=== PATIENT | male | born 1950 | race Caucasian/White ===

== ENCOUNTER 2020-08-10 15:47 | Inpatient (IN) | payer MEDICARE, SELFPAY ==
[2020-08-10] VITALS (18 sets, daily range): BP systolic 74–132; BP diastolic 51–78; PULSE 63–94; RESP 19–30; TEMP 36.7–37.1; O2SAT 88–97; BMI 27.7
--- NOTE | ~2020-08-10 | XR_ITS ---
EXAMINATION: XR chest 1V portable INDICATION: Respiratory failure, assess ET tube placement TECHNIQUE: Portable AP chest at 0 to 33 hours COMPARISON: 08/23/2020 FINDINGS: The endotracheal tube ends approximately 6.7 cm above the car. The nasogastric tube is f ollowed as far as the stomach. Its tip is beyond the inferior margin of the radiograph. A right upper extremity PICC ends with its tip in the proximal superior vena cava. Diffuse interstitial and airspa ce opacities persist with slight worsening in the left lung base. A small left pleural effusion is qu estioned. There is no pneumothorax. The cardiomediastinal silhouette is stable. IMPRESSION: 1. Diffuse lung disease with slight interval worsening in the left lung base, consistent with pneumon ia and/or pulmonary edema and/or acute respiratory distress syndrome (ARDS). 2. Possible small left pleural effusion. Reviewed, dictated and finalized at location A. STRIAL ENGINEERING MANAGER IMPRESSION: 1. Diffuse lung disease with slight interval worsening in the left lung base, c onsistent with pneumonia and/or pulmonary edema and/or acute respiratory distre ss syndrome (ARDS). 2. Possible small left pleural effusion.
--- NOTE | ~2020-08-10 | XR_ITS ---
EXAMINATION: XR chest 1V portable EXAM DATE: 08/22/2020 05:58 INDICATION: Respiratory failure. TECHNIQUE: Portable AP frontal chest x-ray was obtained. Comparison is made to prior examination from 08/21, 08/20. FINDINGS: Endotracheal tube tip is 3-4 centimeters above the car. There is a nasogastric tube see n with tip collimated off the study, but below the left hemidiaphragm. There is a right-sided PICC li ne, tip at the mid SVC level. Extensive diffuse bilateral airspace disease consistent with COVID pneumonia. There are no sizable p leural effusions. There is no pneumothorax suspected. Cardiomediastinal silhouette is normal. Ri ght acromioclavicular surgical changes. There is no significant interval change compared to prior exam. IMPRESSION: 1. Line and tube(s) in position. 2. Extensive diffuse COVID pneumonia unchanged. L SUPPORT SPECIALIST Reviewed, dictated and finalized at location A.
--- NOTE | ~2020-08-10 | XR_ITS ---
EXAMINATION: XR chest 1V portable EXAM DATE: 08/21/2020 05:55 INDICATION: Respiratory failure TECHNIQUE: Portable AP frontal chest x-ray was obtained. Comparison is made to prior examination from 08/19, 08/20. FINDINGS: Endotracheal tube tip is 5-6 centimeters above the car. There is a nasogastric tube see n with tip collimated off the study, but below the left hemidiaphragm. There is a right-sided PICC li ne, tip at the mid SVC level. Extensive diffuse bilateral airspace disease consistent with COVID pneumonia. There are no sizable p leural effusions. There is no pneumothorax suspected. The cardiomediastinal silhouette is promine nt but magnified on this AP technique. Right acromioclavicular surgical changes. There is no significant interval change compared to prior exam. IMPRESSION: 1. Line and tube(s) in position. 2. Extensive diffuse COVID pneumonia unchanged. Reviewed, dictated and finalized at location A. BUYER
--- NOTE | ~2020-08-10 | US_ITS ---
EXAMINATION: US renal BI DATE: 08/22/2020 11:21 INDICATION: Acute kidney injury. TECHNIQUE: Multiple ultrasound grayscale images of the kidneys were obtained. COMPARISON: None. FINDINGS: The right kidney measures 11.7 x 5.2 x 5.1 cm. The left kidney measures 8.6 x 4.0 x 4.8 cm. The kidne ys demonstrate normal parenchymal echogenicity. There is a 3.1 cm cyst in right kidney. There is no h ydronephrosis. The bladder is decompressed by a Adkins catheter. IMPRESSION: 1. Mild atrophy of left kidney. No hydronephrosis. Reviewed, dictated and finalized at location B. CY AND PLANNING MANAGER
--- NOTE | ~2020-08-10 | XR_ITS ---
EXAMINATION: XR chest ET placement EXAM DATE: 08/20/2020 01:55 INDICATION: COVID pneumonia. ET TUBE PLACEMENT. TECHNIQUE: Portable AP frontal chest x-ray was obtained. Comparison is made to prior examination from 08/19/2020. FINDINGS: Endotracheal tube tip is 5-6 centimeters above the car. There is a nasogastric tube see n with tip collimated off the study, but below the left hemidiaphragm. There is a right-sided PICC li ne, tip at the mid SVC level. Extensive diffuse bilateral airspace disease consistent with COVID pneumonia. There are no sizable p leural effusions. There is no pneumothorax suspected. The cardiomediastinal silhouette is promine nt but magnified on this AP technique. Right acromioclavicular surgical changes. There is no significant interval change compared to prior exam. IMPRESSION: 1. Line and tube(s) in position. 2. Extensive diffuse COVID pneumonia unchanged. Reviewed, dictated and finalized at location A. STERED NURSE FETAL
--- NOTE | ~2020-08-10 | XR_ITS ---
XR chest PICC line 08/17/2020 11:17 Indication: PICC line insertion Procedure: AP portable chest Comparison: Comparison to multiple prior studies sequentially, with oldest reviewed study dated 08/10. Findings: Heart size normal. Patchy bilateral airspace consolidation, consistent with pneumonia. Krishan a less favored. PICC line tip in the SVC. No pneumothorax. No significant effusion. Impression: 1: Stable extensive bilateral airspace disease, most likely pneumonia. Reviewed, dictated and finalized at location A. PUNCHER Impression: 1: Stable extensive bilateral airspace disease, most likely pneumonia.
--- NOTE | ~2020-08-10 | XR_ITS ---
EXAMINATION: XR chest 1V portable DATE: 08/10/2020 16:35 INDICATION: Shortness of breath. Fever. TECHNIQUE: A single frontal view of the chest was obtained. COMPARISON: None. FINDINGS: There are patchy airspace opacities throughout the lungs bilaterally. No pleural effusion o r pneumothorax. Cardiomegaly is noted. IMPRESSION: 1. Diffuse lung disease, consistent with pneumonia or less likely pulmonary edema. 2. Cardiomegaly. Reviewed, dictated and finalized at location A. T HEATER IMPRESSION: 1. Diffuse lung disease, consistent with pneumonia or less likely pulmonary jena ma. 2. Cardiomegaly.
--- NOTE | ~2020-08-10 | XR_ITS ---
EXAMINATION: XR chest 1V portable DATE: 08/19/2020 10:40 INDICATION: Hypoxia. TECHNIQUE: frontal view of the chest was obtained. COMPARISON: Chest radiograph dated 08/17/2020 and 08/15/2020 FINDINGS: Slight interval improvement in extensive bilateral patchy airspace opacities throughout both lungs re latively sparing the apices. No pleural effusion or pneumothorax. Cardiomegaly. Right upper extremity peripherally inserted central venous catheter (PICC) tip at the superior vena cava. IMPRESSION: 1. Slight improvement in extensive bilateral patchy lung disease most likely pneumonia with different ial including less likely pulmonary edema. Reviewed, dictated and finalized at location A. RING SHED WORKER IMPRESSION: 1. Slight improvement in extensive bilateral patchy lung disease most likely pn eumonia with differential including less likely pulmonary edema.
--- NOTE | ~2020-08-10 | XR_ITS ---
EXAMINATION: XR chest 1V portable INDICATION: Respiratory failure TECHNIQUE: Portable AP chest at 0518 hours COMPARISON: 08/22/2020 FINDINGS: The endotracheal tube ends approximately 6.5 cm above the car. The nasogastric tube is f ollowed as far as the stomach. Its tip is beyond the inferior margin of the radiograph. A right upper extremity PICC ends with its tip in the proximal superior vena cava. Patchy bilateral airspace opaci ties persist with interval worsening in the lung bases and left midlung zone. IMPRESSION: 1. Diffuse lung disease with interval worsening, consistent with pneumonia and/or pulmonary edema and /or acute respiratory distress syndrome (ARDS). 2. Endotracheal tube partially withdrawn and now 6.5 cm above the car. Reviewed, dictated and finalized at location A. ING AID FITTER IMPRESSION: 1. Diffuse lung disease with interval worsening, consistent with pneumonia and/ or pulmonary edema and/or acute respiratory distress syndrome (ARDS). 2. Endotracheal tube partially withdrawn and now 6.5 cm above the car.
--- NOTE | ~2020-08-10 | XR_ITS ---
EXAMINATION: XR chest 1V portable INDICATION: Worsening hypoxia TECHNIQUE: Portable AP chest at 1045 hours COMPARISON: 08/10/2020 FINDINGS: Patchy airspace opacities persist in all lung zones with slight interval worsening. There i s stable cardiomegaly. No pleural effusion or pneumothorax is identified. There appear to be changes of right distal clavicle resection. IMPRESSION: 1. Diffuse lung disease with interval worsening, consistent with pneumonia and/or pulmonary edema and /or acute respiratory distress syndrome (ARDS). Reviewed, dictated and finalized at location A. GER SYSTEMS IMPRESSION: 1. Diffuse lung disease with interval worsening, consistent with pneumonia and/ or pulmonary edema and/or acute respiratory distress syndrome (ARDS).
--- NOTE | ~2020-08-10 | XR_ITS ---
EXAMINATION: XR abdomen NG/feed tube insert EXAM DATE: 08/20/2020 01:55 INDICATION: og tube placement TECHNIQUE: Frontal projection(s) of the abdomen for interpretation. There is no prior study for asael bah. FINDINGS: Feeding tube tip and side-port project over left upper quadrant, adequate. Nonspecific upp er abdominal bowel gas pattern. There is extensive bilateral abnormal reticulation. There are bony de generative changes. IMPRESSION: Feeding tube in position. Reviewed, dictated and finalized at location A. T AGENT IMPRESSION: Feeding tube in position.
--- NOTE | ~2020-08-10 | CT_ITS ---
EXAMINATION: CTA chest PE protocol DATE: 08/10/2020 17:40 INDICATION: Shortness of breath. TECHNIQUE: Computed tomography angiography (CTA) of the chest was performed with 100 mL Omnipaque-350 intravenous contrast timed to evaluate the pulmonary arteries. Coronal maximum intensity projection 3D-reconstructions were created by the technologist. Automated exposure control and iterative reconst ruction technique were employed. The dose-length product was 561.91 mGy-cm. COMPARISON: Chest single view 08/10/2020 FINDINGS: There are patchy groundglass and airspace opacities with some areas of septal thickening an d architectural distortion in all lobes. There is mild bronchiectasis in the inferior lungs. No pleur al effusion. Cardiomegaly is noted. There are coronary artery calcifications. No pericardial effusion . There is no pulmonary embolus. There is a small sliding hiatal hernia. There is moderate thoracic s pondylosis. IMPRESSION: 1. No pulmonary embolus. 2. Diffuse lung disease, consistent with pneumonia (especially COVID-19 pneumonia) or less likely pul monary edema. 3. Cardiomegaly. Reviewed, dictated and finalized at location A. ECT COACH IMPRESSION: 1. No pulmonary embolus. 2. Diffuse lung disease, consistent with pneumonia (especially COVID-19 pneumon ia) or less likely pulmonary edema. 3. Cardiomegaly.
--- NOTE | 2020-08-10 16:00 | ECG_ITS ---
Measurements Intervals [place] Rate: 82 P: GA: 0 QRS: 33 QRSD: 99 T: 18 QT: 366 QTc: 428 Interpretive Statements ATRIAL FIBRILLATION VENTRICULAR PREMATURE COMPLEX ST-T WAVE ABNORMALITY IN ANTERIOR LEADS- CONSIDER ISCHEMIA BASELINE ARTIFACT- I, II, III, AVR, AVL, AVF, V3 ABNORMAL ECG Electronically Signed On 08-11-2020 9:04:13 BOTTOM CAGER by Dave Camarena D.O.
--- NOTE | 2020-08-10 16:07 | ED.GENADULT ---
HPI - General Adult General Chief complaint: Weakness Stated complaint: I want a COVID test Time Seen by Provider: 08/10/20 15:53 Source: patient History of Present Illness HPI narrative: Patient is a 69 y/o male complaining of mild weakness for 1 week. He states that exertion makes his weakness and resting helps. He also has been having fever up to 103, cough, body ache and sore throat. He has had contact with IMMANUEL recently including his son and people at congregation. Related Data Home Medications Medication Instructions Recorded Confirmed alpha lipoic acid 300 mg capsule 300 mg PO DAILY 07/18/19 08/10/20 amlodipine 10 mg tablet 10 mg PO DAILY 07/18/19 08/10/20 aspirin 81 mg tablet,delayed 81 mg PO DAILY 07/18/19 08/10/20 release atenolol 50 mg tablet 50 mg PO DAILY 07/18/19 08/10/20 atorvastatin 80 mg tablet 80 mg PO DAILY 07/18/19 08/10/20 bisoprolol 2.5 1 tablet PO DAILY 07/18/19 08/10/20 mg-hydrochlorothiazide 6.25 mg tablet diclofenac 75 mg-misoprostol 200 1 tablet PO BID 07/18/19 08/10/20 mcg tablet,immediate,delayed release isosorbide mononitrate 30 mg 30 mg PO DAILY 07/18/19 08/10/20 tablet,extended release 24 hr lutein 20 mg capsule 20 mg PO DAILY 07/18/19 08/10/20 minoxidil 2.5 mg tablet 2.5 mg PO DAILY 07/18/19 08/10/20 multivitamin 1 tablet PO DAILY 07/18/19 08/10/20 omega-3 acid ethyl esters 1 gram 1 cap PO BID 07/18/19 08/10/20 capsule pen needle, diabetic 31 gauge x #30 each 07/18/19 08/10/20 1/4 prasugrel 10 mg tablet 10 mg PO DAILY 07/18/19 08/10/20 pregabalin 100 mg capsule 100 mg PO BID 07/18/19 08/10/20 quinapril 40 mg tablet 40 mg PO DAILY 07/18/19 08/10/20 ranolazine 500 mg tablet,extended 500 mg PO Q12H 07/18/19 08/10/20 release,12 hr cholecalciferol (vitamin D3) 50 50 mcg PO DAILY 11/19/19 08/10/20 mcg (2,000 unit) capsule cyanocobalamin (vitamin B-12) 5,000 mcg PO DAILY 11/19/19 08/10/20 5,000 mcg capsule Allergies Allergy/AdvReac Type Severity Reaction Status Date / Time clopidogrel Allergy Mild Rash Verified 08/10/20 22:16 Review of Systems Constitutional: Constitutional: Denies chills, Reports fever(s), Denies headache(s) and Reports weakness Eyes: Eyes: Denies blurry vision ENT: Denies headache(s), Denies neck pain and Reports sore throat Cardiovascular: Cardiovascular: Denies chest pain and Denies dyspnea Respiratory: Respiratory: Denies cough and Denies dyspnea Gastrointestinal: Gastrointestinal: Denies abdominal pain, Denies diarrhea, Denies nausea and Denies vomiting Genitourinary: Genitourinary: Denies hematuria and Denies dysuria Musculoskeletal: Musculoskeletal: Denies back pain, Reports myalgias and Denies neck pain Neurologic: Denies headache(s) and Denies weakness [facility] Past Medical History Medical History (Updated 08/11/20 @ 07:18 by Veronique Contreras MD) B12 deficiency Coronary artery disease Diabetes mellitus Hemoglobin A1c October 2019 6.4 Essential hypertension Hyperlipidemia Neuropathy Osteoarthritis Vitamin D deficiency Surgical History Surgical History (Updated 08/11/20 @ 06:54 by Verito Martin DO) History of coronary artery stent placement 2 cardiac in placed in 1999, for cardiac stents placed approximately 2008 History of shoulder surgery Status post bilateral foot surgery Family History Family History Mother Depression Hypertension Diabetes mellitus Coronary artery disease Obesity Osteoarthritis Father Cerebrovascular accident Other Cancer Social History Social History (Updated 08/11/20 @ 04:30 by Verito Martin DO) Social History: Primary care provider: Jenna Fox QUILL CLEANER Code status: Full code (no advance directives in place) Surrogate decision maker: Aria () Smoking status: Never smoker Second hand tobacco smoke exposure: No Alcohol intake: never Substance use: never Additional living arrangements
[2020-08-10 16:15] LABS: Basophils Percent Auto 0.3 % (0.2-1.2); Hematocrit 39.5 % (42.0-52.0); Hemoglobin 14.3 g/dL (14.0-18.0); Immature Granulocyte Absolute 0.07 K/mm3 (0.00-0.031); Immature Granulocyte Percent A 0.8 % (0-0.5); Lymphocytes Absolute Auto 0.53 K/mm3 (0.9-3.2); Lymphocytes Percent Auto 5.8 % (18.3-44.2); Mean Corpuscular HGB Conc 36.2 g/dl (32-36); Mean Corpuscular Hemoglobin 30.5 pg (26-34); Mean Corpuscular Volume 84.2 fl (80-100); Mean Platelet Volume 9.5 fl (7.4-10.4); Monocytes Percent Auto 10.5 % (2.6-8.5); Neutrophils Absolute Auto 7.5 K/mm3 (1.3-6.7); Neutrophils Percent Auto 82.6 % (45.5-73.1); Platelet Count Result 365 k/mm3 (150-375); Red Blood Count 4.69 M/mm3 (4.6-6.20); Red Cell Distribution Width 13.1 % (11.5-14.5); White Blood Count 9.1 K/mm3 (4.5-10.0)
[2020-08-10 16:29] LABS: Ovalocytes 1+ (NORMAL); Platelet Estimate Adequate (Adequate)
--- NOTE | 2020-08-10 16:33 | PC.NURSE ---
patient here with Covid like symptoms. see initial notes. has not been swabbed yet. is also here as a patient with similar symptoms. alert. oriented. RA sat on arrival 88%. assessments documented. SL inserted. labs have been sent. blood cultures sent. waiting for further orders from the provider.
[2020-08-10 16:36] LABS: Alanine Aminotransferase 29 U/L (4-50); Alkaline Phosphatase 86 U/L (38-126); Anion Gap 11 mmol/L (8-16); Aspartate Amino Transferase 39 U/L (17-59); Bilirubin,Total 0.8 mg/dL (0.2-1.3); Blood Urea Nitrogen 13 mg/dL (9-20); Carbon Dioxide 23 mmol/L (22-30); Chloride 102 mmol/L (98-107); Estimated CRCL calculation 57 ml/min; Estimated Glomerular Filt Rate 60; Glucose 184 mg/dL (75-110); Sodium 136 mmol/L (137-145)
[2020-08-10 16:45] LABS: Lactic Acid Reflex 2.7 mmol/L (0.7-2.1)
[2020-08-10 16:48] LABS: INR 1.2
[2020-08-10 16:49] LABS: Partial Thromboplastin Time 42.4 SECONDS (22.3-36.8)
[2020-08-10] MEDS: POTASSIUM CHLORIDE 20 MEQ TABLET 40 MEQ PO (16:51)
[2020-08-10 16:52] LABS: D Dimer 1.29 ug/mL (<0.48)
[2020-08-10 17:04] LABS: CRP 19.2 mg/dL (<1.0)
[2020-08-10 17:18] LABS: Troponin I 0.031 ng/mL (0.000-0.034)
--- NOTE | 2020-08-10 18:05 | PC.NURSE ---
patient medicated as ordered. resting on stretcher. current treatment plan reviewed with patient. aware of probable admission. has been on 2L NC O2 during ED stay. denies needs. call light in reach.
[2020-08-10 18:30] LABS: NT Pro B Type Natriuretic Pept 4680 PG/ML (5-100)
--- NOTE | 2020-08-10 18:39 | PC.NURSE ---
admission orders placed. waiting for bed assignment upstairs
[2020-08-10 19:30] LABS: Reflex Lactic Acid Yes or No Add Lactic
--- NOTE | 2020-08-10 19:53 | PC.NURSE ---
report given to Silvano STEWART on 3rd floor. will transfer patient to 301 with O2 and cardiac nurse. patient updated.
[2020-08-10 19:55] LABS: Lactic Acid 1.3 mmol/L (0.7-2.1)
[2020-08-10 20:07] LABS: Troponin I 0.021 ng/mL (0.000-0.034)
[2020-08-10] MEDS: DEXAMETHASONE SOD PHOS INJ 4 MG/ML VIAL 6 MG IV PUSH (20:52)
[2020-08-10 23:20] LABS: Troponin I 0.014 ng/mL (0.000-0.034)
[2020-08-11] VITALS (8 sets, daily range): BP systolic 114–146; BP diastolic 63–75; PULSE 65–87; RESP 18–20; TEMP 36.6–37.1; O2SAT 90–100
[2020-08-11 01:10] LABS: Add Urine Microscopic? YES; Appearance Urine Clear (Clear); Bilirubin Urine Negative (Negative); Blood Urine Negative (Negative); Color Urine Yellow (Yellow); Glucose Urine UA 1+ mg/dL (Negative); Ketones Urine Trace mg/dL (Negative); Leukocyte Esterase Ur Negative LEU/UL (Negative); Nitrate Urine Negative (Negative); Protein Urine 1+ mg/dL (Negative); RBC Urine 0-2 /hpf (0-2); Specific Grav Ur 1.025 (1.001-1.035); Urobilinogen Urine Negative mg/dL (<2.0); WBC Urine 0-3 /hpf
--- NOTE | 2020-08-11 04:11 | PM.IMHP ---
H&P: HPI History of Present Illness Date/Time: 08/11/20 04:11 Chief Complaint: I want COVID tested Narrative: Luis Garvey Jr. is a 69 year old male with a past medical history of hypertension, diabetes mellitus, to the ER with 7 days of cough congestion and fever. He was concerned that he may have COVID 19 and came in to be tested. The patient reports that last Tuesday went to his primary care provider's office because he was having sore throat and a dry cough. He requested a prescription for azithromycin which was provided. The next day he began having fevers ranging between 101 up to 103. He had a worsening cough, body aches, decreased appetite, and generalized weakness. He tried to call his primary care office on Tuesday to request a COVID test but the office did not return his call. He waited until and tried to call office again but called at 3:30 a.m. which was after hours. His primary care provider's office is closed on Tuesday. He was trying to make it until Tuesday before he came in but he was having such shortness of breath in felt so miserable that he came into the ER on Tuesday evening. When he arrived to the ER his oxygen saturations were 88% on room air. He reports that a couple of people at his [facility] were diagnosed with COVID the week prior to the onset of his symptoms. His son was also recently diagnosed with COVID but this occurred after the patient began having his own symptoms. He has not had any direct contact with his son in the last couple of weeks. Review of Systems Review of Systems: Narrative: 12 systems were reviewed with pertinent positives and negatives per HPI. Except as documented in the HPI, all other systems were reviewed and are negative. [facility] Past Medical History Medical History (Updated 08/11/20 @ 04:35 by Verito Martin DO) B12 deficiency Coronary artery disease Diabetes mellitus Hemoglobin A1c October 2019 6.4 Essential hypertension Hyperlipidemia Neuropathy Osteoarthritis Vitamin D deficiency Surgical History Surgical History (Updated 08/11/20 @ 06:54 by Verito Martin DO) History of coronary artery stent placement 2 cardiac in placed in 1999, for cardiac stents placed approximately 2008 History of shoulder surgery Status post bilateral foot surgery Family History Family History Mother Depression Hypertension Diabetes mellitus Coronary artery disease Obesity Osteoarthritis Father Cerebrovascular accident Other Cancer Social History Social History (Updated 08/11/20 @ 04:30 by Verito Martin DO) Social History: Primary care provider: Jenna Fox NP Code status: Full code (no advance directives in place) Surrogate decision maker: Aria () Smoking status: Never smoker Second hand tobacco smoke exposure: No Alcohol intake: never Substance use: never Additional living arrangements comments: lives with his 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 Gender identity (if verbalized by the patient): Male Spiritual care concerns: No Meds Home Medications and Allergies Home Medications Medication Instructions Recorded Confirmed Type alpha lipoic acid 300 mg capsule 300 mg PO DAILY 07/18/19 08/10/20 History amlodipine 10 mg tablet 10 mg PO DAILY 07/18/19 08/10/20 History aspirin 81 mg tablet,delayed 81 mg PO DAILY 07/18/19 08/10/20 History release atenolol 50 mg tablet 50 mg PO DAILY 07/18/19 08/10/20 History atorvastatin 80 mg tablet 80 mg PO DAILY 07/18/19 08/10/20 History bisoprolol 2.5 1 tablet PO DAILY 07/18/19 08/10/20 History mg-hydrochlorothiazide 6.25 mg tablet diclofenac 75 mg-misoprostol 200 1 tablet PO BID 07/18/19 08/10/20 History mcg tablet,immediate,delayed release isosorbide mononitrate 30 mg 30 mg PO DAILY 07/18/19 08/10/20 History tablet,extended release 24 hr lutein 20 mg cap
[2020-08-11 06:06] LABS: Hematocrit 34.2 % (42.0-52.0); Hemoglobin 12.2 g/dL (14.0-18.0); Mean Corpuscular HGB Conc 35.7 g/dl (32-36); Mean Corpuscular Hemoglobin 30.3 pg (26-34); Mean Corpuscular Volume 84.9 fl (80-100); Mean Platelet Volume 9.6 fl (7.4-10.4); Platelet Count Result 292 k/mm3 (150-375); Red Blood Count 4.03 M/mm3 (4.6-6.20); Red Cell Distribution Width 13.1 % (11.5-14.5); White Blood Count 4.6 K/mm3 (4.5-10.0)
[2020-08-11 06:19] LABS: D Dimer 1.45 ug/mL (<0.48)
[2020-08-11 06:30] LABS: Anion Gap 6 mmol/L (8-16); Blood Urea Nitrogen 14 mg/dL (9-20); Calcium 8.2 mg/dL (8.4-10.2); Carbon Dioxide 25 mmol/L (22-30); Chloride 105 mmol/L (98-107); Estimated CRCL calculation 83 ml/min; Estimated Glomerular Filt Rate > 60; Glucose 257 mg/dL (75-110); Magnesium 1.6 mg/dL (1.6-2.3); Potassium 3.8 mmol/L (3.4-5.0); Sodium 136 mmol/L (137-145)
[2020-08-11 07:09] LABS: CRP 17.4 mg/dL (<1.0)
[2020-08-11] MEDS: INSULIN ASPART (*BKC) 100 UNITS/ML SUB-Q ×2 (08:49→17:31)
[2020-08-11] MEDS: INSULIN GLARGINE (*BKC) 100 UNITS/ML 28 UNITS SUB-Q (08:50)
[2020-08-11] MEDS: CHOLECALCIFEROL 1,000 UNITS TABLET 2000 UNITS PO (08:50)
[2020-08-11] MEDS: ATORVASTATIN 40 MG TABLET 80 MG PO (08:50)
[2020-08-11] MEDS: CYANOCOBALAMIN 1,000 MCG TABLET 5000 MCG PO (08:51)
[2020-08-11] MEDS: lisinopriL 20 MG TABLET 40 MG PO (08:51)
[2020-08-11] MEDS: amLODIPine BESYLATE 5 MG TABLET 10 MG PO (08:51)
[2020-08-11 08:52] LABS: Glucose Point of Care 252 (65-105)
[2020-08-11] MEDS: DEXAMETHASONE SOD PHOS INJ 4 MG/ML VIAL 6 MG IV PUSH (08:52)
[2020-08-11] MEDS: OMEGA 3 POLYUNSAT FATTY ACIDS 1 GM CAP PO ×2 (08:52→17:33)
[2020-08-11] MEDS: metFORMIN HCL XR 500 MG TAB.SR.24H 1000 MG PO ×2 (08:53→17:33)
[2020-08-11] MEDS: ASPIRIN 81 MG ENTERIC TABLET PO (08:53)
[2020-08-11] MEDS: PRASUGREL HCL 10 MG TABLET PO (08:54)
[2020-08-11] MEDS: ISOSORBIDE MONONITRATE 30 MG TAB.ER.24H PO (08:54)
[2020-08-11] MEDS: MULTIVITAMINS THERAPEUTIC TAB (*BKC) 1 TABLET PO (08:54)
[2020-08-11] MEDS: minoxidiL 2.5 MG TABLET PO (08:55)
[2020-08-11] MEDS: ENOXAPARIN 40 MG/0.4 ML SYRINGE SUB-Q ×2 (08:55→20:34)
[2020-08-11] MEDS: hydroCHLOROthiazide 6.25 MG TABLET PO (08:55)
[2020-08-11] MEDS: bisoproloL fumarate 2.5 MG TABLET PO (08:56)
[2020-08-11] MEDS: GLIMEPIRIDE 2 MG TABLET PO ×2 (08:56→17:32)
[2020-08-11] MEDS: atenoloL 50 MG TABLET PO (08:56)
[2020-08-11] MEDS: RANOLAZINE 500 MG TAB.ER.12H PO ×2 (08:57→20:35)
[2020-08-11] MEDS: PREGABALIN (*CRX) 50 MG CAPSULE 100 MG PO ×2 (08:58→17:36)
[2020-08-11 10:21] LABS: Lactate Dehydrogenase 746 U/L (313-618)
[2020-08-11 12:33] LABS: Glucose Point of Care 180 (65-105)
--- NOTE | 2020-08-11 13:03 | PM.IMPN ---
Progress Note: A&P Assessment and Plan (1) Hypoxia: Code(s): R09.02 - Hypoxemia Status: Acute Assessment and Plan: Hypoxic upon presentation at 88% on room air. Currently requiring 3 L O2 per nasal cannula. Suspect this is secondary to COVID-19 viral infection. Continue supplemental O2 with goal saturation 90% or above. Wean to goal. (2) Suspected COVID-19 virus infection: Code(s): Z20.822 - Contact with and (suspected) exposure to COVID-19 Status: Acute Assessment and Plan: Patient reports known COVID positive contacts. CXR and CTA both showed diffuse lung disease consistent with COVID-19 pneumonia. Requiring 3 L O2 per nasal cannula. He is afebrile. Continue isolation precautions COVID-19 test is pending. Continue IV dexamethasone, started on 08/10/2020 in light of acute hypoxia. Will hold off on Remdesivir while awaiting confirmation of COVID status. This can be initiated if patient is positive. Supportive Care to include bronchodilators, expectorants, and antipyretics as needed Trend acute phase reactant (3) Hypokalemia: Code(s): E87.6 - Hypokalemia Status: Acute Assessment and Plan: Potassium low on presentation and was replaced. Potassium stable today at 3.8. 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 His home regimen consists of glimepiride, sitagliptin, and lantus. Sugars are likely elevated secondary to IV steroids. Accuchecks, SSI, and hypoglycemic protocol Continue lantus and glimperide Check A1c (5) Coronary artery disease: Code(s): I25.10 - Atherosclerotic heart disease of [place] coronary artery without angina pectoris Status: Inactive Assessment and Plan: Has a history of coronary stents. Denies active chest pain. Continue imdur, aspirin, prasugrel, and ranexa Subjective Date/time seen: 08/11/20 13:03 Interval history: Date of service: 08/11/2020 Luis Garvey is a 69-year-old male with a history of CAD, DM, HTN, and HLD who is seen in follow-up for congestion and fevers. Reports he was at [facility] and multiple members have been diagnosed with COVID. At this time, he is doing okay. He feels very short of breath and endorsing dyspnea on exertion. He has dry cough with no sputum production. He endorses chest congestion. He is having sweats but denies chills or fevers. He reports decreased appetite. He also endorses anosmia and dysgeusia, but states this is not a new finding for him. Also endorses headache and body aches. He feels a bit weak. He denies abdominal pain, nausea, or vomiting. Denies dizziness or lightheadedness. He has been having diarrhea, reporting 3-4 episodes per day of brown liquidy stool. Has not had any episodes of loose stool today. He denies any urinary symptoms. He feels fatigued. He has no additional concerns at this time. Review of Systems Review of Systems: All systems reviewed & are unremarkable except as noted in HPI and below Exam Narrative: Exam Narrative: Mr. Garvey is a well-nourished, well-appearing 69-year-old male who is lying supine in bed. He appears comfortable and is in NARD. HR 87, BP 143/75, R 18, T 98.7?, 91% on 3 L Neuro: awake, alert and oriented x4, speech clear, no focal neuro deficits noted HEENMT: normocephalic, atraumatic, EOMI, sclerae anicteric, moist oral mucosa, tongue midline, nares patent Neck: supple, no lymphadenopathy Respiratory: Diminished breath sounds bilaterally without crackles, wheeze
[2020-08-11 17:26] LABS: Glucose Point of Care 244 (65-105)
[2020-08-11 19:06] LABS: SARS-CoV-2 RNA PCR Positive
[2020-08-11] MEDS: guaiFENesin 12 HR 600 MG TABCR PO (20:35)
[2020-08-12] VITALS (17 sets, daily range): BP systolic 104–145; BP diastolic 57–80; PULSE 61–97; RESP 16–22; TEMP 35.9–38.2; O2SAT 88–95
[2020-08-12 03:46] LABS: Glucose Point of Care 235 (65-105)
[2020-08-12 06:34] LABS: Basophils Percent Auto 0.1 % (0.2-1.2); Hematocrit 34.7 % (42.0-52.0); Hemoglobin 12.2 g/dL (14.0-18.0); Immature Granulocyte Absolute 0.08 K/mm3 (0.00-0.031); Immature Granulocyte Percent A 0.8 % (0-0.5); Lymphocytes Absolute Auto 0.45 K/mm3 (0.9-3.2); Lymphocytes Percent Auto 4.6 % (18.3-44.2); Mean Corpuscular HGB Conc 35.2 g/dl (32-36); Mean Corpuscular Hemoglobin 30.7 pg (26-34); Mean Corpuscular Volume 87.4 fl (80-100); Mean Platelet Volume 9.9 fl (7.4-10.4); Monocytes Absolute Auto 0.4 K/mm3 (0.1-0.6); Neutrophils Absolute Auto 8.8 K/mm3 (1.3-6.7); Neutrophils Percent Auto 90.5 % (45.5-73.1); Platelet Count Result 348 k/mm3 (150-375); Red Blood Count 3.97 M/mm3 (4.6-6.20); Red Cell Distribution Width 13.2 % (11.5-14.5); White Blood Count 9.8 K/mm3 (4.5-10.0)
[2020-08-12 07:00] LABS: Alanine Aminotransferase 31 U/L (4-50); Albumin Level 3.1 g/dL (3.5-5.1); Alkaline Phosphatase 69 U/L (38-126); Anion Gap 7 mmol/L (8-16); Aspartate Amino Transferase 41 U/L (17-59); Bilirubin,Total 0.5 mg/dL (0.2-1.3); Blood Urea Nitrogen 28 mg/dL (9-20); CRP 6.5 mg/dL (<1.0); Calcium 8.2 mg/dL (8.4-10.2); Carbon Dioxide 24 mmol/L (22-30); Chloride 106 mmol/L (98-107); Estimated CRCL calculation 67 ml/min; Estimated Glomerular Filt Rate > 60; Glucose 176 mg/dL (75-110); Potassium 3.6 mmol/L (3.4-5.0); Sodium 137 mmol/L (137-145)
[2020-08-12 07:14] LABS: Ovalocytes 1+ (NORMAL); Platelet Estimate Adequate (Adequate)
[2020-08-12 07:19] LABS: Lactate Dehydrogenase 825 U/L (313-618)
[2020-08-12 08:29] LABS: Glucose Point of Care 171 (65-105)
[2020-08-12] MEDS: amLODIPine BESYLATE 5 MG TABLET 10 MG PO (08:53)
[2020-08-12] MEDS: ATORVASTATIN 40 MG TABLET 80 MG PO (08:54)
[2020-08-12] MEDS: ASPIRIN 81 MG ENTERIC TABLET PO (08:54)
[2020-08-12] MEDS: atenoloL 50 MG TABLET PO (08:54)
[2020-08-12] MEDS: bisoproloL fumarate 2.5 MG TABLET PO (08:55)
[2020-08-12] MEDS: CHOLECALCIFEROL 1,000 UNITS TABLET 2000 UNITS PO (08:55)
[2020-08-12] MEDS: DEXAMETHASONE SOD PHOS INJ 4 MG/ML VIAL 6 MG IV PUSH (08:56)
[2020-08-12] MEDS: CYANOCOBALAMIN 1,000 MCG TABLET 5000 MCG PO (08:56)
[2020-08-12] MEDS: guaiFENesin 12 HR 600 MG TABCR PO ×2 (08:57→20:37)
[2020-08-12] MEDS: ENOXAPARIN 40 MG/0.4 ML SYRINGE SUB-Q (08:57)
[2020-08-12] MEDS: hydroCHLOROthiazide 6.25 MG TABLET PO (08:57)
[2020-08-12] MEDS: minoxidiL 2.5 MG TABLET PO (08:58)
[2020-08-12] MEDS: ISOSORBIDE MONONITRATE 30 MG TAB.ER.24H PO (08:58)
[2020-08-12] MEDS: OMEGA 3 POLYUNSAT FATTY ACIDS 1 GM CAP PO ×2 (08:58→17:25)
[2020-08-12] MEDS: RANOLAZINE 500 MG TAB.ER.12H PO ×2 (08:58→20:38)
[2020-08-12] MEDS: MULTIVITAMINS THERAPEUTIC TAB (*BKC) 1 TABLET PO (08:58)
[2020-08-12] MEDS: lisinopriL 20 MG TABLET 40 MG PO (08:58)
[2020-08-12] MEDS: PRASUGREL HCL 10 MG TABLET PO (08:58)
[2020-08-12] MEDS: PREGABALIN (*CRX) 50 MG CAPSULE 100 MG PO ×2 (09:11→17:25)
[2020-08-12] MEDS: ACETAMINOPHEN 325 MG TABLET 650 MG PO ×2 (09:11→17:32)
[2020-08-12] MEDS: REMDESIVIR 200 MG/NS 250 ML 200 MG/250 ML BAG 250 MG IVPB (09:12)
[2020-08-12] MEDS: INSULIN GLARGINE (*BKC) 100 UNITS/ML 28 UNITS SUB-Q (09:31)
--- NOTE | 2020-08-12 14:53 | P.PNIM_ITS ---
Progress Note: A&P Assessment and Plan (1) Pneumonia due to COVID-19 virus: Code(s): U07.1 - COVID-19; J12.82 - Pneumonia due to coronavirus disease 2019 Status: Acute Assessment and Plan: Patient reports known COVID positive contacts. CXR and CTA both showed diffuse lung disease consistent with COVID-19 pneumonia. Oxygen requirements increased to 8 liters per nasal cannula. CRP has improved, LDH and ferritin mildly increased. * Continue isolation precautions * COVID-19 test is pending. * Continue IV dexamethasone (day 2, initiated 08/10). Remdesivir day 1 - initiated today, 08/12. * Will give a dose of convalescent plasma given rapidly increasing oxygen requirements * Continue supportive care to include bronchodilators, expectorants, and antipyretics as needed * Trend acute phase reactants (2) Acute respiratory failure with hypoxia: Code(s): J96.01 - Acute respiratory failure with hypoxia Status: Acute Assessment and Plan: Hypoxic upon presentation at 88% on room air. Currently requiring 8 L O2 per nasal cannula. Suspect this is secondary to COVID-19 viral infection. CTA negative for PE. * Continue supplemental O2 with goal saturation 90% or above. Wean to goal. (3) Atrial fibrillation: Code(s): I48.91 - Unspecified atrial fibrillation Status: Acute Assessment and Plan: Patient reports no prior known hx of atrial fibrillation. He has a hx of CAD s/p stenting on prasugrel. EKG on arrival to the emergency department demonstrated atrial fibrillation and telemetry monitoring demonstrates atrial fibrillation. Rate is controlled in the 60-70s. This may be provoked by COVID-19 infection. He is on atenolol and bisoprolol prior to admission. He does notice occasional skipped beats . * Will consult cardiology as he has no known hx * Check 2D echocardiogram and TSH * Start therapeutic lovenox. Will reach out to care coordination to see if a DOAC is covered. Add pantoprazole for GI prophylaxis since he is on prasugrel and ASA. 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 His home regimen consists of glimepiride, sitagliptin, and lantus. Sugars are likely elevated secondary to IV steroids. A1c was 7.0. Most recent blood sugar was 171. * Continue ACHS glucose monitoring, SSI, and hypoglycemic protocol * Continue lantus and glimperide, these were held today due to poor appetite * Continue lantus at 28 units * Adjust treatemnt as necessary (5) Coronary artery disease: Code(s): I25.10 - Atherosclerotic heart disease of [place] coronary artery without angina pectoris Status: Inactive Assessment and Plan: Has a history of coronary stents. Denies active chest pain. * Continue atorvastatin, imdur, aspirin, prasugrel, and ranexa * Will add protonix for GI prophylaxis given need for anticoagulation in the setting of atrial fibrillation (6) Hypokalemia: Code(s): E87.6 - Hypokalemia Status: Resolved Assessment and Plan: Resolved. Potassium low on presentatio
--- NOTE | 2020-08-12 14:53 | PM.IMPN ---
Progress Note: A&P Assessment and Plan (1) Pneumonia due to COVID-19 virus: Code(s): U07.1 - COVID-19; J12.82 - Pneumonia due to coronavirus disease 2018 Status: Acute Assessment and Plan: Patient reports known COVID positive contacts. CXR and CTA both showed diffuse lung disease consistent with COVID-19 pneumonia. Oxygen requirements increased to 8 liters per nasal cannula. CRP has improved, LDH and ferritin mildly increased. Continue isolation precautions COVID-19 test is pending. Continue IV dexamethasone (day 2, initiated 08/10). Remdesivir day 1 - initiated today, 08/12. Will give a dose of convalescent plasma given rapidly increasing oxygen requirements Continue supportive care to include bronchodilators, expectorants, and antipyretics as needed Trend acute phase reactants (2) Acute respiratory failure with hypoxia: Code(s): J96.01 - Acute respiratory failure with hypoxia Status: Acute Assessment and Plan: Hypoxic upon presentation at 88% on room air. Currently requiring 8 L O2 per nasal cannula. Suspect this is secondary to COVID-19 viral infection. CTA negative for PE. Continue supplemental O2 with goal saturation 90% or above. Wean to goal. (3) Atrial fibrillation: Code(s): I48.91 - Unspecified atrial fibrillation Status: Acute Assessment and Plan: Patient reports no prior known hx of atrial fibrillation. He has a hx of CAD s/p stenting on prasugrel. EKG on arrival to the emergency department demonstrated atrial fibrillation and telemetry monitoring demonstrates atrial fibrillation. Rate is controlled in the 60-70s. This may be provoked by COVID-19 infection. He is on atenolol and bisoprolol prior to admission. He does notice occasional skipped beats . Will consult cardiology as he has no known hx Check 2D echocardiogram and TSH Start therapeutic lovenox. Will reach out to care coordination to see if a DOAC is covered. Add pantoprazole for GI prophylaxis since he is on prasugrel and ASA. 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 His home regimen consists of glimepiride, sitagliptin, and lantus. Sugars are likely elevated secondary to IV steroids. A1c was 7.0. Most recent blood sugar was 171. Continue ACHS glucose monitoring, SSI, and hypoglycemic protocol Continue lantus and glimperide, these were held today due to poor appetite Continue lantus at 28 units Adjust treatemnt as necessary (5) Coronary artery disease: Code(s): I25.10 - Atherosclerotic heart disease of [place] coronary artery without angina pectoris Status: Inactive Assessment and Plan: Has a history of coronary stents. Denies active chest pain. Continue atorvastatin, imdur, aspirin, prasugrel, and ranexa Will add protonix for GI prophylaxis given need for anticoagulation in the setting of atrial fibrillation (6) Hypokalemia: Code(s): E87.6 - Hypokalemia Status: Resolved Assessment and Plan: Resolved. Potassium low on presentation and was replaced. Potassium stable today at 3.6. Monitor closely and replace as needed Subjective Date/time seen: 08/12/20 14:53 Mr. Garvey is a 69 y.o. male with PMH significant for CAD, DM, HTN, and HLD who is seen in follow-up for pneumonia secondary to COVID-19. His symptoms started approximately 1 week ago. He was at [employer] and multiple members were diagnosed with COVID. His oxygen r
[2020-08-12 16:56] LABS: Glucose Point of Care 204 (65-105)
[2020-08-12 16:56] LABS: Glucose Point of Care 151 (65-105)
[2020-08-12] MEDS: INSULIN ASPART (*BKC) 100 UNITS/ML SUB-Q (17:24)
[2020-08-12] MEDS: ENOXAPARIN 100 MG/ML SYRINGE 90 MG SUB-Q (17:25)
[2020-08-12] MEDS: metFORMIN HCL XR 500 MG TAB.SR.24H 1000 MG PO (17:25)
[2020-08-12] MEDS: TUBING, BLOOD PLUM PUMP TUBING 1 EACH XX (20:00)
[2020-08-12] MEDS: SODIUM CHLORIDE 0.9% IV 250 ML 30 ML IV CONT (20:00)
[2020-08-12] MEDS: WATER FOR IRRIGATION, STERILE 1,000 ML BOTTLE 1000 ML (20:15)
[2020-08-12 21:14] LABS: Glucose Point of Care 276 (65-105)
[2020-08-13] VITALS (14 sets, daily range): BP systolic 98–131; BP diastolic 59–80; PULSE 59–74; RESP 16–22; TEMP 36–36.6; O2SAT 86–95
--- NOTE | 2020-08-13 | ECHO_ITS ---
Patient Info Name: Luis Garvey Age: 69 years : 1950 Gender: Male Ht: 71 in Wt: 199 lbs BSA: 2.14 m2 HR: 53 bpm BP: 98 / 59 mmHg Heart Rhythm: Atrial Fibrillation Technical Quality: Good Exam Date: 08/13/2020 10:52 AM Exam Location: [facility] Patient Status: Inpatient Admit Date: 08/10/2020 Staff Ordering Physician: Marta Pope PA-C Contact Lens Fitter: Luiz Castanon RDCS Attending Provider: Marta Pope PA-C Referring Physician: Toshia IBRAHIM; Exam Type: CA echo doppler color flow Study Info Indications I48.1 - Persistent atrial fibrillation Complete two-dimensional, color flow and Doppler transthoracic echocardiogram is performed. History/Risk Factors Covid19+; Afib, acute respiratory failure, CAD w/ stents (OSH), DM, HTN, SOB/LUI, cardiomegaly. Summary 1. Complete two-dimensional, color flow and Doppler transthoracic echocardiogram is performed. 2. Left ventricular systolic function is normal, estimated at 60-65%. 3. There is moderate concentric increased left ventricular wall thickness. 4. The left ventricular diastolic function is indeterminate. 5. There is mild tricuspid valve regurgitation. 6. Moderate pulmonary hypertension, estimated pulmonary arterial systolic pressure is 45 mmHg. 7. Right ventricular systolic function is normal. 8. Right ventricular chamber dimension is normal. Left Ventricle Left ventricular chamber dimension is normal. Left ventricular systolic function is normal, estimated at 60-65%. There is moderate concentric increased left ventricular wall thickness. The left ventricular diastolic function is indeterminate. Right Ventricle Right ventricular chamber dimension is normal. Right ventricular systolic function is normal. Prominent moderator band, normal variant. Left Atria Left atrial chamber dimension is mildly enlarged. Right Atria Right atrial chamber dimension is mildly enlarged. Aortic Valve The aortic valve is probable trileaflet. There is no aortic valve stenosis. There is no aortic valve regurgitation. There is mild aortic valve calcification. Pulmonic Valve The pulmonic valve is normal. There is trace pulmonic regurgitation. Mitral Valve The mitral valve has thickened leaflets. There is mild mitral valve regurgitation. The mitral valve annulus is mildly calcified. Tricuspid Valve The tricuspid valve leaflets are normal. There is mild tricuspid valve regurgitation. Moderate pulmonary hypertension, estimated pulmonary arterial systolic pressure is 45 mmHg. Pericardium/Pleural The pericardium appears normal. There is no pericardial effusion. Inferior Vena Cava Normal inferior vena cava with >50% collapse upon inspiration consistent with normal right atrial pressure, 5 mmHg. Aorta The aortic root size at the sinus of Valsalva is mildly dilated. Consider CT chest if clinically indicated. Left Ventricular Outflow Tract Name Value Normal LVOT 2D LVOT Diameter 2.1 cm LVOT Doppler LVOT Peak Gradient 4 mmHg LVOT Mean Gradient 2 mmHg
[2020-08-13] MEDS: ENOXAPARIN 100 MG/ML SYRINGE 90 MG SUB-Q ×2 (06:18→17:54)
[2020-08-13 06:37] LABS: Basophils Percent Auto 0.1 % (0.2-1.2); Hematocrit 33.1 % (42.0-52.0); Hemoglobin 11.5 g/dL (14.0-18.0); Immature Granulocyte Absolute 0.07 K/mm3 (0.00-0.031); Lymphocytes Absolute Auto 0.52 K/mm3 (0.9-3.2); Lymphocytes Percent Auto 7.3 % (18.3-44.2); Mean Corpuscular HGB Conc 34.7 g/dl (32-36); Mean Corpuscular Hemoglobin 30.3 pg (26-34); Mean Corpuscular Volume 87.3 fl (80-100); Monocytes Absolute Auto 0.4 K/mm3 (0.1-0.6); Neutrophils Absolute Auto 6.2 K/mm3 (1.3-6.7); Neutrophils Percent Auto 86.6 % (45.5-73.1); Platelet Count Result 305 k/mm3 (150-375); Red Blood Count 3.79 M/mm3 (4.6-6.20); Red Cell Distribution Width 13.2 % (11.5-14.5); White Blood Count 7.1 K/mm3 (4.5-10.0)
[2020-08-13 06:57] LABS: Alanine Aminotransferase 34 U/L (4-50); Anion Gap 7 mmol/L (8-16); Blood Urea Nitrogen 30 mg/dL (9-20); CRP 6.7 mg/dL (<1.0); Calcium 8.2 mg/dL (8.4-10.2); Carbon Dioxide 26 mmol/L (22-30); Chloride 107 mmol/L (98-107); Estimated CRCL calculation 83 ml/min; Estimated Glomerular Filt Rate > 60; Glucose 186 mg/dL (75-110); Lactate Dehydrogenase 849 U/L (313-618); Magnesium 1.8 mg/dL (1.6-2.3); Potassium 3.6 mmol/L (3.4-5.0); Sodium 140 mmol/L (137-145)
[2020-08-13 07:36] LABS: Thyroid Stimulating Hormone Reflex < 0.015 uIU/mL (0.465-4.68)
[2020-08-13] MEDS: INSULIN GLARGINE (*BKC) 100 UNITS/ML 33 UNITS SUB-Q (08:19)
[2020-08-13] MEDS: INSULIN ASPART (*BKC) 100 UNITS/ML SUB-Q ×4 (08:19→17:52)
[2020-08-13 08:22] LABS: Glucose Point of Care 183 (65-105)
[2020-08-13] MEDS: lisinopriL 20 MG TABLET 40 MG PO (08:22)
[2020-08-13] MEDS: RANOLAZINE 500 MG TAB.ER.12H PO ×2 (08:22→20:38)
[2020-08-13] MEDS: metFORMIN HCL XR 500 MG TAB.SR.24H 1000 MG PO ×2 (08:23→17:55)
[2020-08-13] MEDS: PANTOPRAZOLE 40 MG TABLET PO (08:23)
[2020-08-13] MEDS: guaiFENesin 12 HR 600 MG TABCR PO ×2 (08:23→20:38)
[2020-08-13] MEDS: bisoproloL fumarate 2.5 MG TABLET PO (08:23)
[2020-08-13] MEDS: PRASUGREL HCL 10 MG TABLET PO (08:24)
[2020-08-13] MEDS: CYANOCOBALAMIN 1,000 MCG TABLET 5000 MCG PO (08:24)
[2020-08-13] MEDS: amLODIPine BESYLATE 5 MG TABLET 10 MG PO (08:25)
[2020-08-13] MEDS: ASPIRIN 81 MG ENTERIC TABLET PO (08:25)
[2020-08-13] MEDS: ATORVASTATIN 40 MG TABLET 80 MG PO (08:25)
[2020-08-13] MEDS: CHOLECALCIFEROL 1,000 UNITS TABLET 2000 UNITS PO (08:25)
[2020-08-13] MEDS: atenoloL 50 MG TABLET PO (08:26)
[2020-08-13] MEDS: minoxidiL 2.5 MG TABLET PO (08:26)
[2020-08-13] MEDS: hydroCHLOROthiazide 6.25 MG TABLET PO (08:26)
[2020-08-13] MEDS: MULTIVITAMINS THERAPEUTIC TAB (*BKC) 1 TABLET PO (08:27)
[2020-08-13] MEDS: OMEGA 3 POLYUNSAT FATTY ACIDS 1 GM CAP PO ×2 (08:27→17:55)
[2020-08-13] MEDS: ISOSORBIDE MONONITRATE 30 MG TAB.ER.24H PO (08:27)
[2020-08-13] MEDS: DEXAMETHASONE SOD PHOS INJ 4 MG/ML VIAL 6 MG IV PUSH (08:27)
[2020-08-13] MEDS: PREGABALIN (*CRX) 50 MG CAPSULE 100 MG PO ×2 (08:30→17:55)
[2020-08-13] MEDS: REMDESIVIR 100 MG/NS 250 ML 100 MG/250 ML BAG 250 MG IVPB (09:57)
[2020-08-13 12:01] LABS: Free T4 Free Thyroxine Reflex 2.26 ng/dL (0.78-2.19)
[2020-08-13 12:13] LABS: Glucose Point of Care 217 (65-105)
--- NOTE | 2020-08-13 12:47 | ECG_ITS ---
Measurements Intervals [place] Rate: 55 P: MS: 0 QRS: 9 QRSD: 96 T: 0 QT: 474 QTc: 454 Interpretive Statements ATRIAL FIBRILLATION WITH SLOW VENTRICULAR RESPONSE CONSIDER INFERIOR INFARCT, AGE INDETERMINATE ST-T WAVE ABNORMALITY IN ANTERIOR LEADS- CONSIDER ISCHEMIA BASELINE WANDER- V4 ABNORMAL ECG Electronically Signed On 08-13-2020 13:16:36 [employer] by Dave Camarena D.O.
--- NOTE | 2020-08-13 12:48 | P.PNIM_ITS ---
Progress Note: A&P Assessment and Plan (1) Pneumonia due to COVID-19 virus: Code(s): U07.1 - COVID-19; J12.82 - Pneumonia due to coronavirus disease 2019 Status: Acute Assessment and Plan: Patient reports known COVID positive contacts. CXR and CTA both showed diffuse lung disease consistent with COVID-19 pneumonia. Oxygen requirements increased to 10 liters high-flow per nasal cannula. CRP has improved, LDH and ferritin mildly increased. * Continue isolation precautions * COVID-19 test is pending. * Continue IV dexamethasone (day 3, initiated 08/10). Remdesivir day 2 - initiated today, 08/12. * He received convalescent plasma 08/12 given rapidly increasing oxygen requirements * Continue supportive care to include bronchodilators, expectorants, and antipyretics as needed * Trend acute phase reactants (2) Acute respiratory failure with hypoxia: Code(s): J96.01 - Acute respiratory failure with hypoxia Status: Acute Assessment and Plan: Hypoxic upon presentation at 88% on room air. Currently requiring 10 L O2 high- flow per nasal cannula. Suspect this is secondary to COVID-19 viral infection. CTA negative for PE. * Continue supplemental O2 with goal saturation 90% or above. Wean to goal. (3) Atrial fibrillation: Code(s): I48.91 - Unspecified atrial fibrillation Status: Acute Assessment and Plan: Patient reports no prior known hx of atrial fibrillation. He has a hx of CAD s/p stenting on prasugrel. EKG on arrival to the emergency department demonstrated atrial fibrillation and telemetry monitoring demonstrates atrial fibrillation. Rate is controlled in the 60-70s. This may be provoked by COVID-19 infection. He is on atenolol and bisoprolol prior to admission. He does notice occasional skipped beats . His hematology supervisor is Dr. Phillip Snow. 2D echocardiogram demonstrates normal LV systolic function with EF 60-65%, moderate cocentric LV wall thickness, indeterminate diastolic function, mild tricuspid regurgitation, moderate pulmonary hypertension with estimated pulmonary arterial systolic pressure 45 mmHg. TSH is <0.015 and free T4,T3 pending. * Cardiology was consulted as he has no known hx of atrial fibrillation * Request records from Dr. Snow * Continue therapeutic lovenox. Will reach out to care coordination to see if a DOAC is covered. * Continue pantoprazole for GI prophylaxis since he is also on prasugrel and ASA * He is already on atenolol and bisoprolol - rate is controlled at this time. 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 His home regimen consists of glimepiride, sitagliptin, and lantus. A1c was 7.0. Most recent blood sugar was 217. * Hold prior to admission PO hypoglycemics * Continue ACHS glucose monitoring, SSI, and hypoglycemic protocol * Continue lantus, increase to 33 units * Add aspart 4 units TIDWM * Adjust treatment as necessary (5) Coronary artery disease: Code(s): I25.10 - Atherosclerotic heart disease of [place] coronary artery without angina pectoris Status: Acute Assessment and Plan: Has a history
--- NOTE | 2020-08-13 12:48 | PM.IMPN ---
Progress Note: A&P Assessment and Plan (1) Pneumonia due to COVID-19 virus: Code(s): U07.1 - COVID-19; J12.82 - Pneumonia due to coronavirus disease 2019 Status: Acute Assessment and Plan: Patient reports known COVID positive contacts. CXR and CTA both showed diffuse lung disease consistent with COVID-19 pneumonia. Oxygen requirements increased to 10 liters high-flow per nasal cannula. CRP has improved, LDH and ferritin mildly increased. Continue isolation precautions COVID-19 test is pending. Continue IV dexamethasone (day 3, initiated 08/10). Remdesivir day 2 - initiated today, 08/12. He received convalescent plasma 08/12 given rapidly increasing oxygen requirements Continue supportive care to include bronchodilators, expectorants, and antipyretics as needed Trend acute phase reactants (2) Acute respiratory failure with hypoxia: Code(s): J96.01 - Acute respiratory failure with hypoxia Status: Acute Assessment and Plan: Hypoxic upon presentation at 88% on room air. Currently requiring 10 L O2 high-flow per nasal cannula. Suspect this is secondary to COVID-19 viral infection. CTA negative for PE. Continue supplemental O2 with goal saturation 90% or above. Wean to goal. (3) Atrial fibrillation: Code(s): I48.91 - Unspecified atrial fibrillation Status: Acute Assessment and Plan: Patient reports no prior known hx of atrial fibrillation. He has a hx of CAD s/p stenting on prasugrel. EKG on arrival to the emergency department demonstrated atrial fibrillation and telemetry monitoring demonstrates atrial fibrillation. Rate is controlled in the 60-70s. This may be provoked by COVID-19 infection. He is on atenolol and bisoprolol prior to admission. He does notice occasional skipped beats . His guest service supervisor is Dr. Phillip Snow. 2D echocardiogram demonstrates normal LV systolic function with EF 60-65%, moderate cocentric LV wall thickness, indeterminate diastolic function, mild tricuspid regurgitation, moderate pulmonary hypertension with estimated pulmonary arterial systolic pressure 45 mmHg. TSH is <0.015 and free T4,T3 pending. Cardiology was consulted as he has no known hx of atrial fibrillation Request records from Dr. Snow Continue therapeutic lovenox. Will reach out to care coordination to see if a DOAC is covered. Continue pantoprazole for GI prophylaxis since he is also on prasugrel and ASA He is already on atenolol and bisoprolol - rate is controlled at this time. 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 His home regimen consists of glimepiride, sitagliptin, and lantus. A1c was 7.0. Most recent blood sugar was 217. Hold prior to admission PO hypoglycemics Continue ACHS glucose monitoring, SSI, and hypoglycemic protocol Continue lantus, increase to 33 units Add aspart 4 units TIDWM Adjust treatment as necessary (5) Coronary artery disease: Code(s): I25.10 - Atherosclerotic heart disease of [place] coronary artery without angina pectoris Status: Acute Assessment and Plan: Has a history of coronary stents. He did have an episode of chest pain today. STAT EKG was performed with atrial fibrillation with slow ventriclar response and non-specific ST-T change. Initial troponin was <0.012 and will be trended. Cardiology is following and input is appreciated Continue atorvastatin, imdur, aspirin, prasugrel, and ranexa Continue protonix for GI prophylaxis g
[2020-08-13 13:31] LABS: Troponin I < 0.012 ng/mL (0.000-0.034)
--- NOTE | 2020-08-13 15:33 | PM.CNCAR ---
Assessment and Plan Assessment and plan (1) Atrial fibrillation: Code(s): I48.91 - Unspecified atrial fibrillation Status: Acute Assessment and Plan: New diagnosis atrial fibrillation with controlled ventricular responsel, asymptomatic. Patient has multiple risk factor for AFib including hyperthyroidism, severe hypoxia with COVID pneumonia, CAD, hypertension, diabetes mellitus. Patient is on 2 beta-blockers at this time. Will simplify his medical therapy and discontinue bisoprolol, continue atenolol for now and monitor heart rate. Systemic anticoagulation CHADS2 Vasc score 4. Increased bleeding risk on triple therapy. Obtain prior cardiac records including left heart catheterization and stenting to determine if prasugrel may be safely discontinued to reduce bleeding risk with anticoagulation. Monitor H&H. We discussed embolic stroke risk versus bleeding risk and rationale with medical therapy. We will not plan for cardioversion at this time. (2) Pneumonia due to COVID-19 virus: Code(s): U07.1 - COVID-19; J12.82 - Pneumonia due to coronavirus disease 2018 Status: Acute Assessment and Plan: Severe hypoxia on high-flow oxygen, status post convalescent plasma, dexamethasone, remdesivir. (3) Acute respiratory failure with hypoxia: Code(s): J96.01 - Acute respiratory failure with hypoxia Status: Acute Assessment and Plan: As above. Per primary service. (4) Coronary artery disease: Code(s): I25.10 - Atherosclerotic heart disease of [place] coronary artery without angina pectoris Status: Acute Assessment and Plan: History of multiple stents but not recently as he reports. Review prior cardiac medical records when available as requested. Continue statin, aspirin, beta-phan, MIRA-inhibitor. He is on Ranexa as well as nitrate therapy indicating a history of chronic angina although he is asymptomatic presently. (5) Essential hypertension: Code(s): I10 - Essential (primary) hypertension Status: Acute Assessment and Plan: BP well controlled. (6) Diabetes mellitus: Code(s): E11.9 - Type 2 diabetes mellitus without complications Status: Inactive Assessment and Plan: Per primary service (7) History of coronary artery stent placement: Code(s): Z95.5 - Presence of coronary angioplasty implant and graft Status: Inactive Assessment and Plan: Details unavailable but he denies recent stent implantation in the past couple of years. Will need to review records for clarification as above. History of Present Illness History of Present Illness Consult date/time: Date of service: 08/13/20 15:33 Cardiology consultation at the request of Marta Pope of the [facility] service for our opinion regarding atrial fibrillation Requesting physician: Marta Pope PA-C Consult reason: atrial fibrillation Reason For Visit: acute respiratory failure with hypoxia Narrative: Patient is a very pleasant 69-year-old male with past medical history significant for CAD with multiple previously placed stents maintained on dual antiplatelet therapy long-term, hypertension, diabetes mellitus, dyslipidemia presented to the ER initially with 7 day complaint of cough, congestion and fever. Patient indicated was concerned about having exposur to COVID-19 and so presented for testing. He had discussed this sore throat and cough with his PCP for which is with her mycin was prescribed. Subsequently symptoms progressed with worsening cough, body aches, decreased appetite and generalized weakness prompting him to seek testing. As the symptoms persisted but due to significant shortness of breath present to the ER for evaluation. He was noted be hypoxic with 80% oxygen saturation on room air. He denies chest pain or palpitations yet he was found to be in atrial fibrillation at presentation. He has no prior known history of this. He
[2020-08-13 16:23] LABS: Troponin I < 0.012 ng/mL (0.000-0.034)
[2020-08-13 17:51] LABS: Glucose Point of Care 157 (65-105)
[2020-08-13 19:34] LABS: Troponin I < 0.012 ng/mL (0.000-0.034)
[2020-08-13 21:53] LABS: Glucose Point of Care 261 (65-105)
[2020-08-13 22:09] LABS: Alveolar/Arterial O2 Gradient 616.3 mmHg; Base Excess ABG -2.5 mEq/l (+/-2.0); Fractional Inspired Oxygen 100 %; HCO3 ABG 20.4 mEq/l (22.0-26.0); Oxygen Content ABG 16.1 %vol (16.0-22.0); Oxygen Saturation ABG 94.5 % (95.0-100.0); Oxyhemoglobin 91.4 % THb (90.0-100.0); PCO2 ABG 29.5 mmHg (35.0-45.0); PO2 ABG 67.2 mmHg (80.0-100.0); PO2 FiO2 Ratio Arterial Blood 0.67 %; Total Hemoglobin 12.5 g/dL (12.0-18.0); pH ABG 7.457 (7.350-7.450)
[2020-08-13 22:12] LABS: Device NON-REBREATHER MASK; Modified Allen's Test Pass; Site Drawn LEFT RADIAL
--- NOTE | 2020-08-13 22:16 | PM.EVENT ---
Event Note Event Note Event Note: 08/13/2020 at 9:15 p.m. While I was on the floor nursing staff notified me that the patient was having increasing hypoxia. He is already on 15 L high-flow nasal cannula. His oxygen saturations were as low as 76%. A non-rebreather was added to the therapy patient's oxygen saturations returned to 92%. Stat ABG was ordered. The patient appears comfortable. He is not tachypneic or tachycardic. His mentation remains intact. Lungs are relatively clear. He still has occasional cough. He is afebrile. 20 minutes spent in patient care discussing the change in condition with the patient and nursing staff as well as review of the patient's chart. This case had a high probability of a clinically significant, sudden, or life threatening deterioration of this patient's condition which required my full and direct attention, intervention and personal management.
[2020-08-14] VITALS (14 sets, daily range): BP systolic 111–123; BP diastolic 67–77; PULSE 57–72; RESP 18–24; TEMP 36.1–36.6; O2SAT 87–99
--- NOTE | 2020-08-14 03:30 | PC.NURSE ---
Pt's ABG results did not automatically focus puller. Called RT and got the following results. pH 7.457, CO2 29.5, O2 67.2, HCO3 20.4, base excess -2.5, 02 sat 94.5.
[2020-08-14] MEDS: ENOXAPARIN 100 MG/ML SYRINGE 90 MG SUB-Q ×2 (06:06→18:02)
[2020-08-14 06:41] LABS: Basophils Percent Auto 0.1 % (0.2-1.2); Hemoglobin 11.2 g/dL (14.0-18.0); Immature Granulocyte Absolute 0.05 K/mm3 (0.00-0.031); Immature Granulocyte Percent A 0.6 % (0-0.5); Lymphocytes Absolute Auto 0.85 K/mm3 (0.9-3.2); Lymphocytes Percent Auto 10.7 % (18.3-44.2); Mean Corpuscular Hemoglobin 30.1 pg (26-34); Monocytes Absolute Auto 0.4 K/mm3 (0.1-0.6); Monocytes Percent Auto 4.9 % (2.6-8.5); Neutrophils Absolute Auto 6.6 K/mm3 (1.3-6.7); Neutrophils Percent Auto 83.7 % (45.5-73.1); Platelet Count Result 322 k/mm3 (150-375); Red Blood Count 3.72 M/mm3 (4.6-6.20); Red Cell Distribution Width 12.9 % (11.5-14.5); White Blood Count 7.9 K/mm3 (4.5-10.0)
[2020-08-14 07:51] LABS: Alanine Aminotransferase 31 U/L (4-50); Albumin Level 2.8 g/dL (3.5-5.1); Alkaline Phosphatase 72 U/L (38-126); Anion Gap 4 mmol/L (8-16); Aspartate Amino Transferase 35 U/L (17-59); Bilirubin,Total 0.5 mg/dL (0.2-1.3); Blood Urea Nitrogen 32 mg/dL (9-20); CRP 3.6 mg/dL (<1.0); Carbon Dioxide 27 mmol/L (22-30); Chloride 109 mmol/L (98-107); Creatine Kinase 42 U/L (55-170); Estimated CRCL calculation 74 ml/min; Estimated Glomerular Filt Rate > 60; Glucose 125 mg/dL (75-110); Lactate Dehydrogenase 940 U/L (313-618); Magnesium 1.8 mg/dL (1.6-2.3); Potassium 3.5 mmol/L (3.4-5.0); Sodium 140 mmol/L (137-145)
[2020-08-14 07:52] LABS: Atypical Lymphocytes Present; Large Platelets Present; Ovalocytes 1+ (NORMAL); Platelet Estimate Adequate (Adequate)
[2020-08-14 08:17] LABS: Total Triiodothyronine (T3) 0.89 NG/ML (0.97-1.69)
[2020-08-14 08:28] LABS: Glucose Point of Care 113 (65-105)
[2020-08-14] MEDS: INSULIN GLARGINE (*BKC) 100 UNITS/ML 33 UNITS SUB-Q (08:43)
[2020-08-14] MEDS: INSULIN ASPART (*BKC) 100 UNITS/ML SUB-Q ×2 (08:43→12:27)
[2020-08-14] MEDS: metFORMIN HCL XR 500 MG TAB.SR.24H 1000 MG PO (08:45)
[2020-08-14] MEDS: CYANOCOBALAMIN 1,000 MCG TABLET 5000 MCG PO (08:46)
[2020-08-14] MEDS: PRASUGREL HCL 10 MG TABLET PO (08:47)
[2020-08-14] MEDS: atenoloL 50 MG TABLET PO (08:47)
[2020-08-14] MEDS: CHOLECALCIFEROL 1,000 UNITS TABLET 2000 UNITS PO (08:47)
[2020-08-14] MEDS: ISOSORBIDE MONONITRATE 30 MG TAB.ER.24H PO (08:47)
[2020-08-14] MEDS: MULTIVITAMINS THERAPEUTIC TAB (*BKC) 1 TABLET PO (08:47)
[2020-08-14] MEDS: RANOLAZINE 500 MG TAB.ER.12H PO ×2 (08:47→20:37)
[2020-08-14] MEDS: amLODIPine BESYLATE 5 MG TABLET 10 MG PO (08:47)
[2020-08-14] MEDS: guaiFENesin 12 HR 600 MG TABCR PO ×2 (08:48→20:37)
[2020-08-14] MEDS: minoxidiL 2.5 MG TABLET PO (08:48)
[2020-08-14] MEDS: lisinopriL 20 MG TABLET 40 MG PO (08:48)
[2020-08-14] MEDS: ASPIRIN 81 MG ENTERIC TABLET PO (08:48)
[2020-08-14] MEDS: OMEGA 3 POLYUNSAT FATTY ACIDS 1 GM CAP PO ×2 (08:48→18:02)
[2020-08-14] MEDS: DEXAMETHASONE SOD PHOS INJ 4 MG/ML VIAL 6 MG IV PUSH (08:49)
[2020-08-14] MEDS: hydroCHLOROthiazide 6.25 MG TABLET PO (08:49)
[2020-08-14] MEDS: ATORVASTATIN 40 MG TABLET 80 MG PO (08:49)
[2020-08-14] MEDS: PANTOPRAZOLE 40 MG TABLET PO (08:49)
[2020-08-14] MEDS: PREGABALIN (*CRX) 50 MG CAPSULE 100 MG PO ×2 (08:51→18:01)
[2020-08-14] MEDS: REMDESIVIR 100 MG/NS 250 ML 100 MG/250 ML BAG 250 MG IVPB (10:11)
[2020-08-14 12:04] LABS: Glucose Point of Care 87 (65-105)
--- NOTE | 2020-08-14 12:39 | P.PNIM_ITS ---
Progress Note: A&P Assessment and Plan (1) Pneumonia due to COVID-19 virus: Code(s): U07.1 - COVID-19; J12.82 - Pneumonia due to coronavirus disease 2019 Status: Acute Assessment and Plan: Patient reports known COVID positive contacts. CXR and CTA both showed diffuse lung disease consistent with COVID-19 pneumonia. Oxygen requirements increased overnight and he is on 10 liters high-flow and 15 liters non-rebreather. CRP has improved, LDH mildly increased, ferritin decreased. COVID-19 testing was positive from 08/10. * Continue isolation precautions * Continue IV dexamethasone (day 5, initiated 08/10). Remdesivir day 3 - initiated 08/12. * He received convalescent plasma 08/12 given rapidly increasing oxygen requirements * Continue supportive care to include bronchodilators, expectorants, and antipyretics as needed * Trend acute phase reactants (2) Acute respiratory failure with hypoxia: Code(s): J96.01 - Acute respiratory failure with hypoxia Status: Acute Assessment and Plan: Hypoxic upon presentation at 88% on room air. Suspect this is secondary to COVID-19 viral infection. CTA negative for PE. Oxygen requirements increased to 10 liters high-flow per nasal cannula and 15 liters non-rebreather. * Continue supplemental O2 with goal saturation 90% or above. Wean to goal. * Continue respiratory therapy recommendations (3) Atrial fibrillation: Code(s): I48.91 - Unspecified atrial fibrillation Status: Acute Assessment and Plan: Patient reports no prior known hx of atrial fibrillation. He has a hx of CAD s/p stenting on prasugrel. EKG on arrival to the emergency department demonstrated atrial fibrillation and telemetry monitoring demonstrates atrial fibrillation. Rate is controlled in the 60-70s. This may be provoked by COVID-19 infection. He is on atenolol and bisoprolol prior to admission. He does notice occasional skipped beats . His machine shop helper is Dr. Phillip Snow. 2D echocardiogram demonstrates normal LV systolic function with EF 60-65%, moderate cocentric LV wall thickness, indeterminate diastolic function, mild tricuspid regurgitation, moderate pulmonary hypertension with estimated pulmonary arterial systolic pressure 45 mmHg. [id number] score is 4. TSH is <0.015, free T4 2.26, total T3 0.89, free T3 pending. * Cardiology was consulted as he has no known hx of atrial fibrillation and input is greatly appreciated * Request records from Dr. Snow. Will determine if DAPT is still needed based on these records in conjugation with cardiology. * Continue therapeutic lovenox. Awaiting care coordination input to see if a DOAC is covered. * Continue pantoprazole for GI prophylaxis since he is also on prasugrel and ASA * Discontinue bisoprolol per cardiology and continue atenolol. (4) Diabetes mellitus with hyperglycemia: Qualifiers: Diabetes mellitus type: type 2 Diabetes mellitus alf insulin use: with emt intermediate use Qualified Code(s): E11.65 - Type 2 diabetes mellitus with hyperglycemia; Z79.4 - termite exterminator helper (current) use of insulin Code(s): E11.65 - Type 2 diabetes mellitus with hyperglycemia Status: Acute Assessment and Plan: Blood sugars are elevated above target, likely due to IV steroids for COVID, but are improving. His home regimen consists of glimepiride, sitagliptin, and lantus. A1c was 7.0. Most recent blood sugar was 87. * Hold prior to admission PO hypoglycemics * Continue ACHS glucose monitoring, SSI, and hypoglycemic protocol * Continue lantus 33 units SQ daily * Will hold mealtime dosing for today since most recent sug
--- NOTE | 2020-08-14 12:39 | PM.IMPN ---
Progress Note: A&P Assessment and Plan (1) Pneumonia due to COVID-19 virus: Code(s): U07.1 - COVID-19; J12.82 - Pneumonia due to coronavirus disease 2019 Status: Acute Assessment and Plan: Patient reports known COVID positive contacts. CXR and CTA both showed diffuse lung disease consistent with COVID-19 pneumonia. Oxygen requirements increased overnight and he is on 10 liters high-flow and 15 liters non-rebreather. CRP has improved, LDH mildly increased, ferritin decreased. COVID-19 testing was positive from 08/10. Continue isolation precautions Continue IV dexamethasone (day 5, initiated 08/10). Remdesivir day 3 - initiated 08/12. He received convalescent plasma 08/12 given rapidly increasing oxygen requirements Continue supportive care to include bronchodilators, expectorants, and antipyretics as needed Trend acute phase reactants (2) Acute respiratory failure with hypoxia: Code(s): J96.01 - Acute respiratory failure with hypoxia Status: Acute Assessment and Plan: Hypoxic upon presentation at 88% on room air. Suspect this is secondary to COVID-19 viral infection. CTA negative for PE. Oxygen requirements increased to 10 liters high-flow per nasal cannula and 15 liters non-rebreather. Continue supplemental O2 with goal saturation 90% or above. Wean to goal. Continue respiratory therapy recommendations (3) Atrial fibrillation: Code(s): I48.91 - Unspecified atrial fibrillation Status: Acute Assessment and Plan: Patient reports no prior known hx of atrial fibrillation. He has a hx of CAD s/p stenting on prasugrel. EKG on arrival to the emergency department demonstrated atrial fibrillation and telemetry monitoring demonstrates atrial fibrillation. Rate is controlled in the 60-70s. This may be provoked by COVID-19 infection. He is on atenolol and bisoprolol prior to admission. He does notice occasional skipped beats . His disability liaison officer is Dr. Phillip Snow. 2D echocardiogram demonstrates normal LV systolic function with EF 60-65%, moderate cocentric LV wall thickness, indeterminate diastolic function, mild tricuspid regurgitation, moderate pulmonary hypertension with estimated pulmonary arterial systolic pressure 45 mmHg. [id number] score is 4. TSH is <0.015, free T4 2.26, total T3 0.89, free T3 pending. Cardiology was consulted as he has no known hx of atrial fibrillation and input is greatly appreciated Request records from Dr. Snow. Will determine if DAPT is still needed based on these records in conjugation with cardiology. Continue therapeutic lovenox. Awaiting care coordination input to see if a DOAC is covered. Continue pantoprazole for GI prophylaxis since he is also on prasugrel and ASA Discontinue bisoprolol per cardiology and continue atenolol. (4) Diabetes mellitus with hyperglycemia: Qualifiers: Diabetes mellitus type: type 2 Diabetes mellitus snf insulin use: with remote computer terminal operator use Qualified Code(s): E11.65 - Type 2 diabetes mellitus with hyperglycemia; Z79.4 - shelter (current) use of insulin Code(s): E11.65 - Type 2 diabetes mellitus with hyperglycemia Status: Acute Assessment and Plan: Blood sugars are elevated above target, likely due to IV steroids for COVID, but are improving. His home regimen consists of glimepiride, sitagliptin, and lantus. A1c was 7.0. Most recent blood sugar was 87. Hold prior to admission PO hypoglycemics Continue ACHS glucose monitoring, SSI, and hypoglycemic protocol Continue lantus 33 units SQ daily Will hold mealtime dosing for today since most recent sugar is only 87. Adjust treatment as necessary (5) Coronary artery disease: Code(s): I25.10 - Atherosclerotic heart disease of [place] coronary artery without angina pectoris Status: Acute Assessment and Plan: Has a history of coronary stents. He did have an episode of chest pain 08/13. STAT EKG was performed
[2020-08-14 17:57] LABS: Glucose Point of Care 98 (65-105)
[2020-08-14] MEDS: SILVERGEL (ELTA) 45 ML 1 APPLIC TOPICAL (17:57)
[2020-08-14 21:58] LABS: Glucose Point of Care 108 (65-105)
[2020-08-15] VITALS (18 sets, daily range): BP systolic 108–137; BP diastolic 59–81; PULSE 61–97; RESP 16–30; TEMP 36.1–36.6; O2SAT 91–97
[2020-08-15] MEDS: ENOXAPARIN 100 MG/ML SYRINGE 90 MG SUB-Q (05:51)
[2020-08-15 06:24] LABS: Basophils Percent Auto 0.3 % (0.2-1.2); Eosinophils Percent Auto 0.3 % (0-4.4); Hematocrit 33.8 % (42.0-52.0); Hemoglobin 11.7 g/dL (14.0-18.0); Immature Granulocyte Absolute 0.14 K/mm3 (0.00-0.031); Immature Granulocyte Percent A 1.5 % (0-0.5); Lymphocytes Absolute Auto 0.92 K/mm3 (0.9-3.2); Lymphocytes Percent Auto 9.6 % (18.3-44.2); Mean Corpuscular HGB Conc 34.6 g/dl (32-36); Mean Corpuscular Hemoglobin 29.8 pg (26-34); Mean Corpuscular Volume 86.2 fl (80-100); Mean Platelet Volume 10.1 fl (7.4-10.4); Monocytes Absolute Auto 0.5 K/mm3 (0.1-0.6); Monocytes Percent Auto 4.8 % (2.6-8.5); Neutrophils Percent Auto 83.5 % (45.5-73.1); Platelet Count Result 356 k/mm3 (150-375); Red Blood Count 3.92 M/mm3 (4.6-6.20); White Blood Count 9.6 K/mm3 (4.5-10.0)
[2020-08-15 07:00] LABS: Alanine Aminotransferase 30 U/L (4-50); Albumin Level 2.9 g/dL (3.5-5.1); Alkaline Phosphatase 85 U/L (38-126); Anion Gap 5 mmol/L (8-16); Aspartate Amino Transferase 41 U/L (17-59); Bilirubin,Total 0.7 mg/dL (0.2-1.3); Blood Urea Nitrogen 31 mg/dL (9-20); CRP 4.1 mg/dL (<1.0); Carbon Dioxide 27 mmol/L (22-30); Chloride 108 mmol/L (98-107); Creatine Kinase 48 U/L (55-170); Estimated CRCL calculation 83 ml/min; Estimated Glomerular Filt Rate > 60; Glucose 59 mg/dL (75-110); Lactate Dehydrogenase 1102 U/L (313-618); Magnesium 1.8 mg/dL (1.6-2.3); Potassium 3.3 mmol/L (3.4-5.0); Sodium 140 mmol/L (137-145)
[2020-08-15] MEDS: GLUCOSE ORAL GEL 15 GM OF GLUCSE IN 37.5 GM TUBE PO (07:05)
[2020-08-15 07:08] LABS: Glucose Point of Care 56 (65-105)
[2020-08-15 07:34] LABS: Ovalocytes 1+ (NORMAL); Platelet Estimate Adequate (Adequate)
[2020-08-15 08:18] LABS: Glucose Point of Care 73 (65-105)
--- NOTE | 2020-08-15 08:45 | PM.PNCARD ---
Progress Note: A&P Additional Plan 69-year-old man with: Coronary artery disease no ischemic symptoms and no recent PCI according to the history he gives me today. Newly diagnosed atrial fibrillation of unknown chronicity I will discontinue prasugrel since he has had no recent interventions and start apixaban for oral anticoagulation. Lovenox subcu then can be discontinued. Management of Coronavirus pneumonia of course deferred to primary team Jayy Gil MD [facility] Subjective Date/time seen: Date of service: 08/15/20 08:45 Interval history: Follow-up visit in this 69-year-old man with: Shortness of breath evidence of mendez virus pneumonia which is the principal reason for being hospitalized History of coronary artery disease with previous PCI patient says his most recent stent procedure was 2007. He remains on dual anti-platelet therapy Asymptomatic but newly recognized atrial fibrillation. Rate is controlled with a 10 allow all. Now receiving subcu Lovenox for anticoagulation Exam Const: General: comfortable and no acute distress Other: Well-developed well-nourished white male appears to be in no distress wearing high flow oxygen HENMT: Mouth: Yes moist mucous membranes Eyes: Sclera: sclerae normal Pupils: Equal, round and reactive pupils present Neck: Neck: supple and no JVD Thyroid: thyroid normal Resp: Other: Central rhonchi noted bilaterally Cardio: Rhythm: abnormal rhythm irregularly irregular GI: GI Palp: Yes Soft to palpation Auscultation: normal bowel sounds Skin: General skin exam: normal color Neuro: Cognition (Neuro): normal cognition Extrem: General: normal to inspection Objective Data Vital Signs Vital Signs: Vital Signs - 24 hr 08/14/20 08:47 08/14/20 09:15 08/14/20 09:57 Temperature Pulse Rate 69 69 57 L Respiratory Rate 20 Blood Pressure Pulse Oximetry 99 08/14/20 12:00 08/14/20 16:00 08/14/20 20:00 Temperature 36.1 C L 36.2 C L 36.2 C L Pulse Rate 69 69 71 Respiratory Rate 24 H 22 H 20 Blood Pressure 116/72 113/77 123/76 Pulse Oximetry 92 94 87 L 08/14/20 20:01 08/14/20 21:14 08/15/20 00:00 Temperature 36.2 C L Pulse Rate 63 Respiratory Rate 20 Blood Pressure 120/74 Pulse Oximetry 92 91 93 08/15/20 04:00 Temperature 36.4 C Pulse Rate 61 Respiratory Rate 20 Blood Pressure 121/81 Pulse Oximetry 91 Intake/Output Intake/Output: Intake & Output 08/12/20 08/13/20 08/14/20 08/15/20 23:59 23:59 23:59 23:59 Intake Total 1482 1600 2940 500 Output Total 945 184 8854 450 Balance 782 1050 1740 50 Meds/Results Medications: Active Medications Generic Name Dose Route Start Last Admin Trade Name Freq PRN Reason Stop Dose Admin Acetaminophen 650 mg 08/10/20 18:11 08/12/20 17:32 Acetaminophen 325 Mg Tablet PO 650 mg Q4H PRN Administration Mild Pain (1-3) or Fever Albuterol 4 puff 08/11/20 05:35 Albuterol Sulfate (*Sp) Aerosol 1 Puff INHALATION QIDRT PRN Shortness Of Breath Amlodipine Besylate 10 mg 08/11/20 09:00 08/14/20 08:47 Amlodipine Besylate 5 Mg Tablet PO 10 mg DAILY SILAS Administration Apixaban 5 mg 08/15/20 09:00 Apixaban 5 Mg Tablet PO Q12HR SILAS Aspirin 81 mg 08/11/20 09:00 08/14/20 08:48 Aspirin 81 Mg Enteric Tablet PO 81 mg DAILY SILAS Administration Atenolol 50 mg 08/11/20 09:00 08/14/20 08:47 Atenolol 50 Mg Tablet PO 50 mg DAILY SILAS Administration Atorvastatin Calcium 80 mg 08/11/20 09:00 08/14/20 08:49 Atorvastatin 40 Mg Tablet PO 80 mg DAILY SILAS Administration Cyanocobalamin 5,000 mcg 08/11/20 09:00 08/14/20 08:46 Cyanocobalamin 1,000 Mcg Tablet PO 5,000 mcg DAILY SILAS Administration Dexamethasone Sodium Phosphate 6 mg 08/10/20 20:20 08/14/20 08:49 Dexamethasone Sod Phos Inj 4 Mg/Ml Vial IV PUSH 08/19/20 09:01 6 mg DAILY SILAS Administration Dextrose 12.5 gm 08/10/20 22:50 Dextrose 50% 25
[2020-08-15] MEDS: POTASSIUM CHLORIDE 20 MEQ TABLET 40 MEQ PO (08:57)
[2020-08-15] MEDS: DEXAMETHASONE SOD PHOS INJ 4 MG/ML VIAL 6 MG IV PUSH (08:58)
[2020-08-15] MEDS: CYANOCOBALAMIN 1,000 MCG TABLET 5000 MCG PO (08:59)
[2020-08-15] MEDS: amLODIPine BESYLATE 5 MG TABLET 10 MG PO (08:59)
[2020-08-15] MEDS: guaiFENesin 12 HR 600 MG TABCR PO ×2 (08:59→21:04)
[2020-08-15] MEDS: ATORVASTATIN 40 MG TABLET 80 MG PO (09:00)
[2020-08-15] MEDS: PANTOPRAZOLE 40 MG TABLET PO (09:00)
[2020-08-15] MEDS: ISOSORBIDE MONONITRATE 30 MG TAB.ER.24H PO (09:00)
[2020-08-15] MEDS: RANOLAZINE 500 MG TAB.ER.12H PO ×2 (09:00→21:04)
[2020-08-15] MEDS: MULTIVITAMINS THERAPEUTIC TAB (*BKC) 1 TABLET PO (09:00)
[2020-08-15] MEDS: lisinopriL 20 MG TABLET 40 MG PO (09:01)
[2020-08-15] MEDS: ASPIRIN 81 MG ENTERIC TABLET PO (09:01)
[2020-08-15] MEDS: hydroCHLOROthiazide 6.25 MG TABLET PO (09:03)
[2020-08-15] MEDS: atenoloL 50 MG TABLET PO (09:03)
[2020-08-15] MEDS: OMEGA 3 POLYUNSAT FATTY ACIDS 1 GM CAP PO ×2 (09:04→16:01)
[2020-08-15] MEDS: PREGABALIN (*CRX) 50 MG CAPSULE 100 MG PO ×2 (09:04→16:01)
[2020-08-15] MEDS: minoxidiL 2.5 MG TABLET PO (09:04)
[2020-08-15] MEDS: SILVERGEL (ELTA) 45 ML 1 APPLIC TOPICAL (09:05)
[2020-08-15 09:31] LABS: Glucose Point of Care 116 (65-105)
--- NOTE | 2020-08-15 09:56 | P.PNIM_ITS ---
Progress Note: A&P Assessment and Plan (1) Pneumonia due to COVID-19 virus: Code(s): U07.1 - COVID-19; J12.82 - Pneumonia due to coronavirus disease 2019 Status: Acute Assessment and Plan: CXR and CTA both demonstrate diffuse lung disease consistent with COVID-19 pneumonia. COVID-19 testing was performed 08/10 and positive. Oxygen requirements increased overnight to 15 liters high-flow and 15 liters non-rebreather and he is now requiring BiPAP. * Continue isolation precautions * Transfer to IMU for BiPAP * Consult pulmonology, input is greatly appreciated * Continue IV dexamethasone (day 6, initiated 08/10). Remdesivir day 4 - initiated 08/12. * He received convalescent plasma 08/12 * Continue supportive care to include scheduled bronchodilators, expectorants, and antipyretics as needed * Trend acute phase reactants (2) Acute respiratory failure with hypoxia: Code(s): J96.01 - Acute respiratory failure with hypoxia Status: Acute Assessment and Plan: Hypoxic upon presentation at 88% on room air, secondary to COVID-19 viral infection. CTA negative for PE. Oxygen requirements continue to increase and he is now requiring BiPAP. * Transfer to IMU for BiPAP * Repeat ABG in 30 minutes after BiPAP * Consult pulmonology, input is greatly appreciated * Continue supplemental O2 with goal saturation 90% or above. Wean to goal. * Continue respiratory therapy recommendations (3) Atrial fibrillation: Code(s): I48.91 - Unspecified atrial fibrillation Status: Acute Assessment and Plan: Patient reports no prior known hx of atrial fibrillation. He has a hx of CAD s/p stenting on prasugrel. EKG on arrival to the emergency department demonstrated atrial fibrillation and telemetry monitoring demonstrates atrial fibrillation. Duration is unknown. Rate is controlled. This may be provoked by COVID-19 infection. His airway traffic controller is Dr. Phillip Snow. 2D echocardiogram demonstrates normal LV systolic function with EF 60-65%, moderate cocentric LV wall thickness, indeterminate diastolic function, mild tricuspid regurgitation, moderate pulmonary hypertension with estimated pulmonary arterial systolic pres sure 45 mmHg. [id number] score is 4. TSH is <0.015, free T4 2.26, total T3 0.89, free T3 pending. * Cardiology was consulted as he has no known hx of atrial fibrillation and input is greatly appreciated * Records were requested from Dr. Snow and are pending. Appreciate cardiology input. Prasugrel was discontinued. * Stop lovenox and start eliquis * Continue pantoprazole for GI prophylaxis since he is also on prasugrel and ASA * Discontinue bisoprolol per cardiology and continue atenolol. (4) Diabetes mellitus with hyperglycemia: Qualifiers: Diabetes mellitus mcc insulin use: with mcc use Diabetes mellitus type: type 2 Qualified Code(s): E11.65 - Type 2 diabetes mellitus with hyperglycemia; Z79.4 - emt intermediate (current) use of insulin Code(s): E11.65 - Type 2 diabetes mellitus with hyperglycemia Status: Acute Assessment and Plan: Blood sugars were elevated above target, likely due to IV steroids for COVID, but improved. His home regimen consists of glimepiride, sitagliptin, and lantus. A1c was 7.0. His p.o. intake was poor yesterday and he does not feel like eating much today. * Hold prior to admission PO hypoglycemics * Continue ACHS glucose monitoring, SSI, and hypoglycemic protocol * Hold lantus for today given hypoglycemia and very poor p.o. intake. Resume when clincally appropriate. * Hold mealtime insulin * Adjust treatment as
--- NOTE | 2020-08-15 09:56 | PM.IMPN ---
Progress Note: A&P Assessment and Plan (1) Pneumonia due to COVID-19 virus: Code(s): U07.1 - COVID-19; J12.82 - Pneumonia due to coronavirus disease 2019 Status: Acute Assessment and Plan: CXR and CTA both demonstrate diffuse lung disease consistent with COVID-19 pneumonia. COVID-19 testing was performed 08/10 and positive. Oxygen requirements increased overnight to 15 liters high-flow and 15 liters non-rebreather and he is now requiring BiPAP. Continue isolation precautions Transfer to IMU for BiPAP Consult pulmonology, input is greatly appreciated Continue IV dexamethasone (day 6, initiated 08/10). Remdesivir day 4 - initiated 08/12. He received convalescent plasma 08/12 Continue supportive care to include scheduled bronchodilators, expectorants, and antipyretics as needed Trend acute phase reactants (2) Acute respiratory failure with hypoxia: Code(s): J96.01 - Acute respiratory failure with hypoxia Status: Acute Assessment and Plan: Hypoxic upon presentation at 88% on room air, secondary to COVID-19 viral infection. CTA negative for PE. Oxygen requirements continue to increase and he is now requiring BiPAP. Transfer to IMU for BiPAP Repeat ABG in 30 minutes after BiPAP Consult pulmonology, input is greatly appreciated Continue supplemental O2 with goal saturation 90% or above. Wean to goal. Continue respiratory therapy recommendations (3) Atrial fibrillation: Code(s): I48.91 - Unspecified atrial fibrillation Status: Acute Assessment and Plan: Patient reports no prior known hx of atrial fibrillation. He has a hx of CAD s/p stenting on prasugrel. EKG on arrival to the emergency department demonstrated atrial fibrillation and telemetry monitoring demonstrates atrial fibrillation. Duration is unknown. Rate is controlled. This may be provoked by COVID-19 infection. His cable inspector is Dr. Phillip Snow. 2D echocardiogram demonstrates normal LV systolic function with EF 60-65%, moderate cocentric LV wall thickness, indeterminate diastolic function, mild tricuspid regurgitation, moderate pulmonary hypertension with estimated pulmonary arterial systolic pressure 45 mmHg. [id number] score is 4. TSH is <0.015, free T4 2.26, total T3 0.89, free T3 pending. Cardiology was consulted as he has no known hx of atrial fibrillation and input is greatly appreciated Records were requested from Dr. Snow and are pending. Appreciate cardiology input. Prasugrel was discontinued. Stop lovenox and start eliquis Continue pantoprazole for GI prophylaxis since he is also on prasugrel and ASA Discontinue bisoprolol per cardiology and continue atenolol. (4) Diabetes mellitus with hyperglycemia: Qualifiers: Diabetes mellitus fpc insulin use: with fpc use Diabetes mellitus type: type 2 Qualified Code(s): E11.65 - Type 2 diabetes mellitus with hyperglycemia; Z79.4 - detention (current) use of insulin Code(s): E11.65 - Type 2 diabetes mellitus with hyperglycemia Status: Acute Assessment and Plan: Blood sugars were elevated above target, likely due to IV steroids for COVID, but improved. His home regimen consists of glimepiride, sitagliptin, and lantus. A1c was 7.0. His p.o. intake was poor yesterday and he does not feel like eating much today. Hold prior to admission PO hypoglycemics Continue ACHS glucose monitoring, SSI, and hypoglycemic protocol Hold lantus for today given hypoglycemia and very poor p.o. intake. Resume when clincally appropriate. Hold mealtime insulin Adjust treatment as necessary (5) Coronary artery disease: Code(s): I25.10 - Atherosclerotic heart disease of [place] coronary artery without angina pectoris Status: Acute Assessment and Plan: Has a history of coronary stents. He is not having any chest pain at this time. Cardiology is following and input is appreciated Continue atorvastat
[2020-08-15 10:32] LABS: Base Excess ABG -1.3 mEq/l (+/-2.0); Carboxyhemoglobin 0.3 % THb (0-2.0); Fractional Inspired Oxygen 100 %; HCO3 ABG 20.9 mEq/l (22.0-26.0); Methemoglobin ABG 0.1 %THb (0-1.5); Oxygen Content ABG 15.4 %vol (16.0-22.0); Oxyhemoglobin 82.6 % THb (90.0-100.0); PCO2 ABG 28.2 mmHg (35.0-45.0); PO2 FiO2 Ratio Arterial Blood 0.47 %; Total Hemoglobin 13.3 g/dL (12.0-18.0); pH ABG 7.488 (7.350-7.450)
[2020-08-15 10:35] LABS: Oxygen Saturation ABG 86.7 % (95.0-100.0); PO2 ABG 46.8 mmHg (80.0-100.0)
[2020-08-15 10:36] LABS: Device NON-REBREATHER MASK; Modified Allen's Test Pass; Site Drawn RIGHT RADIAL
[2020-08-15] MEDS: REMDESIVIR 100 MG/NS 250 ML 100 MG/250 ML BAG 250 MG IVPB (11:01)
[2020-08-15] MEDS: APIXABAN 5 MG TABLET PO ×2 (11:01→21:04)
[2020-08-15] MEDS: FUROSEMIDE INJ 40 MG/4 ML VIAL IV PUSH (11:29)
[2020-08-15 11:39] LABS: NT Pro B Type Natriuretic Pept 2020 PG/ML (5-100)
[2020-08-15] MEDS: ALBUTEROL SULFATE NEB 2.5 MG/0.5 ML INH 5 MG INHALATION ×3 (12:11→20:09)
[2020-08-15 12:24] LABS: Glucose Point of Care 98 (65-105)
--- NOTE | 2020-08-15 15:57 | PM.CNPUL ---
Assessment and Plan Assessment and plan (1) Pneumonia due to COVID-19 virus: Code(s): U07.1 - COVID-19; J12.82 - Pneumonia due to coronavirus disease 2019 Status: Acute Assessment and Plan: Patient was [id number] to pneumonia with ARDS. Patient is currently receiving treatment with dexamethasone 6 mg IV day 6 of 10, REM-severe 100 mg dates 3, and he is status post convalescent plasma on 08/12. Despite being on BiPAP 18/80 to 100% with saturations at 94 patient states that he is in minimal respiratory distress alert and oriented x4, and watching TV. At this point I do not think there are any other additional concurrent issues that could be causing his hypoxemia such Has fluid overload or a concurrent infection. An echocardiogram has been performed with normal LV function, there are no focal infiltrates suggesting of bacterial infection. I will send influenza swab. Will monitor patient and if hypoxemia worsens he may require intubation. (2) Acute respiratory failure with hypoxia: Code(s): J96.01 - Acute respiratory failure with hypoxia Status: Acute Assessment and Plan: Patient with SARS-CoV-2 pneumonia with ARDS requiring BiPAP 18/80 and 100%. He is tolerating this currently with saturatiuons 94% and will check an ABG to assess ventilation and oxygenation. Will follow with you. History of Present Illness History of Present Illness Consult date: 08/15/20 Requesting physician: Marta Pope PA-C Reason for consult: hypoxemia Chief complaint: acute respiratory failure with hypoxia Narrative: New patient consult for COVID pneumonia with ARDS Patient is a 69-year-old man with a history of atrial fibrillation, 2 insulin-dependent diabetes, hypertension who presented with shortness of breath and infiltrates and was found to be COVID 19 positive on 1Patient was admitted and started on dexamethasone and given convalescent plasma on 08/12/2020. Patient was started on Remdesivir on 08/12/2020. Patient had a CT scan of the chest on 110 that showed showed diffuse patchy interstitial and alveolar infiltrates bilaterally. Patient developed worsening hypoxemia and on 08/15 he remained hypoxic on 100%, 15 L non-rebreather his blood gas was 7.4 04/28/2047. Patient was initiated on high-flow nasal cannula oxygen but remained with low oxygen saturation. Patient was then initiated on BiPAP 18/80 and 100% and I was consulted. When I interviewed the patient she was on BiPAP 18 over ate 100%. Patient was awake alert and oriented x4 in no respiratory distress and stated that his breathing was a little bit better than when he 1st presented to the hospital on 08/10. He denied any fever chills purulence sputum or hemoptysis. Patient denies any rashes change in his neurologic status, abdominal pain, or diarrhea. Koul the patient had a high BNP there was never any evidence of fluid overload. His echo was noted below. Echo Summary 1. Complete two-dimensional, color flow and Doppler transthoracic echocardiogram is performed. 2. Left ventricular systolic function is normal, estimated at 60-65%. 3. There is moderate concentric increased left ventricular wall thickness. 4. The left ventricular diastolic function is indeterminate. 5. There is mild tricuspid valve regurgitation. 6. Moderate pulmonary hypertension, estimated pulmonary arterial systolic pressure is 45 mmHg. 7. Right ventricular systolic function is normal. 8. Right ventricular chamber dimension is normal. Review of Systems Review of Systems: All systems reviewed & are unremarkable except as noted in HPI and below Eyes: Eyes: Reports no additional eye complaints ENT: Reports system reviewed and no additional complaints, except as documented and Reports sinus pressure Cardiovascular: Cardiovascular: Denies chest pain, Denies pedal edema, Denies leg edema and Denies palpitations Respiratory: Respiratory: Reports as per
[2020-08-15] MEDS: CHOLECALCIFEROL 1,000 UNITS TABLET 2000 UNITS PO (16:01)
[2020-08-15 16:34] LABS: Influenza Control Positive
[2020-08-15 17:10] LABS: Glucose Point of Care 152 (65-105)
[2020-08-15 20:18] LABS: Glucose Point of Care 289 (65-105)
[2020-08-16] VITALS (33 sets, daily range): BP systolic 103–109; BP diastolic 58–74; PULSE 66–103; RESP 20–30; TEMP 35.9–36.6; O2SAT 87–99
[2020-08-16] MEDS: ALBUTEROL SULFATE NEB 2.5 MG/0.5 ML INH 5 MG INHALATION ×6 (00:24→20:33)
[2020-08-16 04:26] LABS: Alveolar/Arterial O2 Gradient 609.7 mmHg; Base Excess ABG -2.8 mEq/l (+/-2.0); Fractional Inspired Oxygen 100 %; HCO3 ABG 20.2 mEq/l (22.0-26.0); Oxygen Content ABG 18.1 %vol (16.0-22.0); Oxygen Saturation ABG 95.4 % (95.0-100.0); PCO2 ABG 30.4 mmHg (35.0-45.0); PO2 ABG 72.9 mmHg (80.0-100.0); PO2 FiO2 Ratio Arterial Blood 0.73 %; Total Hemoglobin 13.8 g/dL (12.0-18.0)
[2020-08-16 04:27] LABS: Device NON-INVASIVE VENT; Modified Allen's Test Pass; Non-Invasive Expiratory Pressure 8 CMH2O; Non-Invasive Inspiratory Pressure 18 CMH2O; Non-Invasive Vent Rate 12 /MIN; Site Drawn LEFT RADIAL
[2020-08-16 05:43] LABS: Basophils Percent Auto 0.1 % (0.2-1.2); Eosinophils Percent Auto 0.1 % (0-4.4); Hematocrit 34.1 % (42.0-52.0); Immature Granulocyte Absolute 0.07 K/mm3 (0.00-0.031); Immature Granulocyte Percent A 0.7 % (0-0.5); Lymphocytes Absolute Auto 0.67 K/mm3 (0.9-3.2); Lymphocytes Percent Auto 6.6 % (18.3-44.2); Mean Corpuscular HGB Conc 35.2 g/dl (32-36); Mean Corpuscular Volume 85.3 fl (80-100); Mean Platelet Volume 10.3 fl (7.4-10.4); Monocytes Absolute Auto 0.4 K/mm3 (0.1-0.6); Monocytes Percent Auto 4.3 % (2.6-8.5); Neutrophils Percent Auto 88.2 % (45.5-73.1); Platelet Count Result 384 k/mm3 (150-375); Red Cell Distribution Width 12.9 % (11.5-14.5); White Blood Count 10.2 K/mm3 (4.5-10.0)
[2020-08-16 06:04] LABS: Alanine Aminotransferase 29 U/L (4-50); Albumin Level 3.2 g/dL (3.5-5.1); Alkaline Phosphatase 101 U/L (38-126); Anion Gap 6 mmol/L (8-16); Aspartate Amino Transferase 36 U/L (17-59); Bilirubin,Total 0.8 mg/dL (0.2-1.3); Blood Urea Nitrogen 30 mg/dL (9-20); Calcium 8.2 mg/dL (8.4-10.2); Carbon Dioxide 25 mmol/L (22-30); Chloride 105 mmol/L (98-107); Creatine Kinase 37 U/L (55-170); Estimated CRCL calculation 83 ml/min; Estimated Glomerular Filt Rate > 60; Glucose 202 mg/dL (75-110); Lactate Dehydrogenase 1144 U/L (313-618); Potassium 3.4 mmol/L (3.4-5.0); Sodium 136 mmol/L (137-145)
[2020-08-16 06:18] LABS: CRP 11.6 mg/dL (<1.0)
[2020-08-16] MEDS: MULTIVITAMINS THERAPEUTIC TAB (*BKC) 1 TABLET PO (10:24)
[2020-08-16] MEDS: RANOLAZINE 500 MG TAB.ER.12H PO ×2 (10:25→21:10)
[2020-08-16] MEDS: CYANOCOBALAMIN 1,000 MCG TABLET 5000 MCG PO (10:25)
[2020-08-16] MEDS: PANTOPRAZOLE 40 MG TABLET PO (10:27)
[2020-08-16] MEDS: DEXAMETHASONE SOD PHOS INJ 4 MG/ML VIAL 6 MG IV PUSH (10:27)
[2020-08-16] MEDS: lisinopriL 20 MG TABLET 40 MG PO (10:28)
[2020-08-16] MEDS: CHOLECALCIFEROL 1,000 UNITS TABLET 2000 UNITS PO (10:28)
[2020-08-16] MEDS: amLODIPine BESYLATE 5 MG TABLET 10 MG PO (10:28)
[2020-08-16] MEDS: PREGABALIN (*CRX) 50 MG CAPSULE 100 MG PO ×2 (10:29→16:07)
[2020-08-16] MEDS: ATORVASTATIN 40 MG TABLET 80 MG PO (10:29)
[2020-08-16] MEDS: ISOSORBIDE MONONITRATE 30 MG TAB.ER.24H PO (10:29)
[2020-08-16] MEDS: atenoloL 50 MG TABLET PO (10:30)
[2020-08-16] MEDS: ASPIRIN 81 MG ENTERIC TABLET PO (10:30)
[2020-08-16] MEDS: minoxidiL 2.5 MG TABLET PO (10:31)
[2020-08-16] MEDS: APIXABAN 5 MG TABLET PO ×2 (10:31→21:10)
[2020-08-16] MEDS: guaiFENesin 12 HR 600 MG TABCR PO ×2 (10:31→21:10)
[2020-08-16] MEDS: OMEGA 3 POLYUNSAT FATTY ACIDS 1 GM CAP PO ×2 (10:31→16:07)
[2020-08-16] MEDS: hydroCHLOROthiazide 6.25 MG TABLET PO (10:34)
[2020-08-16] MEDS: INSULIN GLARGINE (*BKC) 100 UNITS/ML 10 UNITS SUB-Q (10:34)
[2020-08-16] MEDS: SILVERGEL (ELTA) 45 ML 1 APPLIC TOPICAL (10:34)
[2020-08-16] MEDS: REMDESIVIR 100 MG/NS 250 ML 100 MG/250 ML BAG 250 MG IVPB (10:44)
--- NOTE | 2020-08-16 12:19 | PM.PNCARD ---
Progress Note: A&P Assessment and Plan (1) Atrial fibrillation: Code(s): I48.91 - Unspecified atrial fibrillation Status: Acute Assessment and Plan: New diagnosis atrial fibrillation with controlled ventricular responsel, asymptomatic. Patient has multiple risk factor for AFib including hyperthyroidism, severe hypoxia with COVID pneumonia, CAD, hypertension, diabetes mellitus. Patient is on 2 beta-blockers at this time. Will simplify his medical therapy and discontinue bisoprolol, continue atenolol for now and monitor heart rate. Systemic anticoagulation CHADS2 Vasc score 4. Increased bleeding risk on triple therapy. on eliquis and HR is controlled (2) Pneumonia due to COVID-19 virus: Code(s): U07.1 - COVID-19; J12.82 - Pneumonia due to coronavirus disease 2018 Status: Acute Assessment and Plan: Severe hypoxia on high-flow oxygen, status post convalescent plasma, dexamethasone, remdesivir. (3) Acute respiratory failure with hypoxia: Code(s): J96.01 - Acute respiratory failure with hypoxia Status: Acute Assessment and Plan: As above. Per primary service. (4) Coronary artery disease: Code(s): I25.10 - Atherosclerotic heart disease of [place] coronary artery without angina pectoris Status: Acute Assessment and Plan: History of multiple stents but not recently as he reports. Review prior cardiac medical records when available as requested. Continue statin, aspirin, beta-phan, MIRA-inhibitor. He is on Ranexa as well as nitrate therapy indicating a history of chronic angina although he is asymptomatic presently. (5) Essential hypertension: Code(s): I10 - Essential (primary) hypertension Status: Acute Assessment and Plan: BP well controlled. (6) Diabetes mellitus: Code(s): E11.9 - Type 2 diabetes mellitus without complications Status: Inactive Assessment and Plan: Per primary service (7) History of coronary artery stent placement: Code(s): Z95.5 - Presence of coronary angioplasty implant and graft Status: Inactive Assessment and Plan: Details unavailable but he denies recent stent implantation in the past couple of years. Subjective Date/time seen: 08/16/20 12:19 Interval history: Follow-up visit in this 69-year-old man with: Shortness of breath evidence of mendez virus pneumonia which is the principal reason for being hospitalized History of coronary artery disease with previous PCI patient says his most recent stent procedure was 2007. He remains on dual anti-platelet therapy Asymptomatic but newly recognized atrial fibrillation. date of service 08/16/2020: No CP, + worsening SOB Review of Systems Review of Systems: All systems reviewed & are unremarkable except as noted in HPI and below Constitutional: Constitutional: Reports as per HPI, Reports no additional constitutional complaints, Reports fatigue, Reports lethargy and Reports weakness Eyes: Eyes: Reports as per HPI and Reports no additional eye complaints ENT: Reports system reviewed and no additional complaints, except as documented and Reports as per HPI Cardiovascular: Cardiovascular: Reports as per HPI, Reports no additional cardiovascular complaints, Denies chest pain, Denies leg edema, Denies palpitations, Reports dyspnea and Reports dyspnea on exertion Respiratory: Respiratory: Reports as per HPI, Reports no additional respiratory complaints, Reports cough, Reports dyspnea and Reports dyspnea on exertion Gastrointestinal: Gastrointestinal: Reports as per HPI, Reports no additional gastrointestinal complaints, Denies abdominal pain, Denies melena, Denies hematochezia, Denies diarrhea and Denies hematemesis Genitourinary: Genitourinary: Reports no additional male genitourinary complaints and Reports as per HPI Musculoskeletal: Musculoskeletal: Reports no additional musculoskeletal complaints and Reports as per HPI
[2020-08-16 12:35] LABS: Glucose Point of Care 293 (65-105)
[2020-08-16] MEDS: INSULIN ASPART (*BKC) 100 UNITS/ML SUB-Q (12:56)
--- NOTE | 2020-08-16 13:27 | P.PNIM_ITS ---
Progress Note: A&P Assessment and Plan (1) Pneumonia due to COVID-19 virus: Code(s): U07.1 - COVID-19; J12.82 - Pneumonia due to coronavirus disease 2019 Status: Acute Assessment and Plan: CXR and CTA both demonstrate diffuse lung disease consistent with COVID-19 pneumonia. COVID-19 testing was performed 08/10 and positive. Oxygen requirements increased starting on the night of 08/14/2020 required high-flow nasal cannula then BiPAP patient then was transferred to the MICU on 08/15/2020 and pulmonology was consulted patient was started on BiPAP. * Continue BiPAP * Pulmonology recommendation appreciated * Continue IV dexamethasone (day 7, initiated 08/10). Remdesivir day 5 - initiated 08/12. * He received convalescent plasma 08/12 (2) Acute respiratory failure with hypoxia: Code(s): J96.01 - Acute respiratory failure with hypoxia Status: Acute Assessment and Plan: Hypoxic upon presentation at 88% on room air, secondary to COVID-19 viral infection. CTA negative for PE. Oxygen requirements continue to increase and he is now requiring BiPAP. * MICU for BiPAP * No improvement (3) Atrial fibrillation: Code(s): I48.91 - Unspecified atrial fibrillation Status: Acute Assessment and Plan: Patient reports no prior known hx of atrial fibrillation. He has a hx of CAD s/p stenting on prasugrel. EKG on arrival to the emergency department demonstrated atrial fibrillation and telemetry monitoring demonstrates atrial fibrillation. Duration is unknown. Rate is controlled. This may be provoked by COVID-19 infection. His riddler operator is Dr. Phillip Snow. 2D echocardiogram demonstrates normal LV systolic function with EF 60-65%, moderate cocentric LV wall thickness, indeterminate diastolic function, mild tricuspid regurgitation, moderate pulmonary hypertension with estimated pulmonary arterial systolic pressure 45 mmHg. [id number] score is 4. TSH is <0.015, free T4 2.26, total T3 0.89, free T3 pending. * Cardiology was consulted as he has no known hx of atrial fibrillation and input is greatly appreciated * Patient on aspirin and Eliquis currently * Continue pantoprazole for GI prophylaxis since he is also on prasugrel and ASA * Discontinue bisoprolol per cardiology and continue atenolol. (4) Diabetes mellitus with hyperglycemia: Qualifiers: Diabetes mellitus type: type 2 Diabetes mellitus green marketer insulin use: with green marketer use Qualified Code(s): E11.65 - Type 2 diabetes mellitus with hyperglycemia; Z79.4 - emr specialist (current) use of insulin Code(s): E11.65 - Type 2 diabetes mellitus with hyperglycemia Status: Acute Assessment and Plan: Blood sugars were elevated above target, likely due to IV steroids for COVID, but improved. His home regimen consists of glimepiride, sitagliptin, and lantus. A1c was 7.0. His p.o. intake was poor yesterday and he does not feel like eating much today. * Increase the dose of Lantus and lispro * Continue ACHS glucose monitoring, SSI, and hypoglycemic protocol * Currently has episodes of hyperglycemia * Patient had episode of hypoglycemia resolved * Oral hypoglycemic medication is on hold (5) Coronary artery disease: Code(s): I25.10 - Atherosclerotic heart disease of [place] coronary artery without angina pectoris Status: Acute Assessment and Plan: Has a history of coronary stents. He is not having any chest pain at this time. * Cardiology is following and input is appreciated * Continue atorvastatin, imdur, aspirin, and ranexa. Stop prasugrel per car
--- NOTE | 2020-08-16 13:27 | PM.IMPN ---
Progress Note: A&P Assessment and Plan (1) Pneumonia due to COVID-19 virus: Code(s): U07.1 - COVID-19; J12.82 - Pneumonia due to coronavirus disease 2019 Status: Acute Assessment and Plan: CXR and CTA both demonstrate diffuse lung disease consistent with COVID-19 pneumonia. COVID-19 testing was performed 08/10 and positive. Oxygen requirements increased starting on the night of 08/14/2020 required high-flow nasal cannula then BiPAP patient then was transferred to the MICU on 08/15/2020 and pulmonology was consulted patient was started on BiPAP. Continue BiPAP Pulmonology recommendation appreciated Continue IV dexamethasone (day 7, initiated 08/10). Remdesivir day 5 - initiated 08/12. He received convalescent plasma 08/12 (2) Acute respiratory failure with hypoxia: Code(s): J96.01 - Acute respiratory failure with hypoxia Status: Acute Assessment and Plan: Hypoxic upon presentation at 88% on room air, secondary to COVID-19 viral infection. CTA negative for PE. Oxygen requirements continue to increase and he is now requiring BiPAP. MICU for BiPAP No improvement (3) Atrial fibrillation: Code(s): I48.91 - Unspecified atrial fibrillation Status: Acute Assessment and Plan: Patient reports no prior known hx of atrial fibrillation. He has a hx of CAD s/p stenting on prasugrel. EKG on arrival to the emergency department demonstrated atrial fibrillation and telemetry monitoring demonstrates atrial fibrillation. Duration is unknown. Rate is controlled. This may be provoked by COVID-19 infection. His stave and bolt equalizer is Dr. Phillip Snow. 2D echocardiogram demonstrates normal LV systolic function with EF 60-65%, moderate cocentric LV wall thickness, indeterminate diastolic function, mild tricuspid regurgitation, moderate pulmonary hypertension with estimated pulmonary arterial systolic pressure 45 mmHg. [id number] score is 4. TSH is <0.015, free T4 2.26, total T3 0.89, free T3 pending. Cardiology was consulted as he has no known hx of atrial fibrillation and input is greatly appreciated Patient on aspirin and Eliquis currently Continue pantoprazole for GI prophylaxis since he is also on prasugrel and ASA Discontinue bisoprolol per cardiology and continue atenolol. (4) Diabetes mellitus with hyperglycemia: Qualifiers: Diabetes mellitus type: type 2 Diabetes mellitus pigskin trimmer insulin use: with half-way use Qualified Code(s): E11.65 - Type 2 diabetes mellitus with hyperglycemia; Z79.4 - animal nutrition consultant (current) use of insulin Code(s): E11.65 - Type 2 diabetes mellitus with hyperglycemia Status: Acute Assessment and Plan: Blood sugars were elevated above target, likely due to IV steroids for COVID, but improved. His home regimen consists of glimepiride, sitagliptin, and lantus. A1c was 7.0. His p.o. intake was poor yesterday and he does not feel like eating much today. Increase the dose of Lantus and lispro Continue ACHS glucose monitoring, SSI, and hypoglycemic protocol Currently has episodes of hyperglycemia Patient had episode of hypoglycemia resolved Oral hypoglycemic medication is on hold (5) Coronary artery disease: Code(s): I25.10 - Atherosclerotic heart disease of [place] coronary artery without angina pectoris Status: Acute Assessment and Plan: Has a history of coronary stents. He is not having any chest pain at this time. Cardiology is following and input is appreciated Continue atorvastatin, imdur, aspirin, and ranexa. Stop prasugrel per cardiology recommendations. (6) Hypokalemia: Code(s): E87.6 - Hypokalemia Status: Acute Assessment and Plan: Replace potassium and monitor CMP (7) Chest pain: Code(s): R07.9 - Chest pain, unspecified Status: Acute Assessment and Plan: Episode of chest pain most likely related to acute hypoxemic respiratory failur
[2020-08-16] MEDS: POTASSIUM CHLORIDE 20 MEQ PACKET (FOR LIQUID) 40 MEQ PO (16:07)
[2020-08-16] MEDS: GLIMEPIRIDE 2 MG TABLET PO (16:07)
[2020-08-16 16:36] LABS: Magnesium 2.1 mg/dL (1.6-2.3)
[2020-08-16 16:44] LABS: Glucose Point of Care 160 (65-105)
[2020-08-16 16:44] LABS: Glucose Point of Care 198 (65-105)
--- NOTE | 2020-08-16 16:54 | PM.PNPUL ---
Progress Note: A&P Assessment and Plan (1) Pneumonia due to COVID-19 virus: Code(s): U07.1 - COVID-19; J12.82 - Pneumonia due to coronavirus disease 2018 Status: Acute Assessment and Plan: Patient was ATHR-ZtA-1-COVID to pneumonia with ARDS. Patient is currently receiving treatment with dexamethasone 6 mg IV day 7 of , remdesivir 100 mg which is completed as it is no longer on the list, and he is status post convalescent plasma on 08/12. Despite being on BiPAP 18/8 to 100% with saturations at 94% patient states that he is in minimal respiratory distress alert and oriented x4, and watching TV. At this point I do not think there are any other additional concurrent issues that could be causing his hypoxemia such as fluid overload or a concurrent infection. An echocardiogram has been performed with normal LV function, there are no focal infiltrates suggesting of bacterial infection. Influenza swab is negative 08/15. Will monitor patient and if hypoxemia worsens he may require intubation. 08/16 : will try AVAPS to see if he can tolerate a different mode with lower tidal volumes; I was at the bedside with RT Gonzales attempting different settings without much success. (2) Acute respiratory failure with hypoxia: Code(s): J96.01 - Acute respiratory failure with hypoxia Status: Acute Assessment and Plan: Patient with SARS-CoV-2 pneumonia with ARDS requiring BiPAP 18/8 and 100%. He is tolerating this currently with saturations 94%ABG today on BiPAP 18/8 with 100% and rate 12 : 7.44 / 30 / 72.9 / 20.2 / 95%; mild respiratory alkalosis. May do better with lower minute ventilation. Will follow with you. Subjective Date/time seen: 08/16/20 16:54 This 69 year old man is seen in follow up for COVID with ARDS, placed on BiPAP and is on high flow O2. His lungs have excellent compliance, with tidal volumes over 1000 ml with BiPAP 18/8. I adjusted the settings with lower IPAP and EPAP to attempt lower tidal volumes in an effort to avoid overdistention. He was more comfortable and felt less short of breath at settings that were higher with tidal volumes that were 1872-9515 ml compared to tidal volumes 600 ml. He said that he was not able to breathe and felt that he was struggling to catch his breath. Review of Systems Review of Systems: All systems reviewed & are unremarkable except as noted in HPI and below Eyes: Eyes: Reports no additional eye complaints ENT: Reports system reviewed and no additional complaints, except as documented and Reports sinus pressure Cardiovascular: Cardiovascular: Denies chest pain, Denies pedal edema, Denies leg edema and Denies palpitations Respiratory: Respiratory: Reports as per HPI and Reports no additional respiratory complaints Gastrointestinal: Gastrointestinal: Reports no additional gastrointestinal complaints Genitourinary: Genitourinary: Reports no additional male genitourinary complaints Musculoskeletal: Musculoskeletal: Reports no additional musculoskeletal complaints Integumentary/Breasts: Skin/Breast: Reports system reviewed and no additional complaints, except as docu Neurologic: Reports system reviewed and no additional complaints, except as documented and Reports behavioral changes Psychiatric: Psychiatric: Reports no additional psychiatric complaints and Reports behavioral changes Endocrine: Endocrine: Reports no additional endocrine complaints and Denies palpitations Exam Const: General: cooperative and healthy appearing Orientation/consciousness: oriented to person, oriented to place and oriented to time HENMT: Head: normal to inspection Ears: hearing grossly normal bilaterally Mouth: Yes Normal oral and palatal mucosa present Throat: tonsils absent Eyes: General: appearance normal, both eyes and all related structures Neck:
[2020-08-16 21:31] LABS: Glucose Point of Care 196 (65-105)
[2020-08-17] VITALS (26 sets, daily range): BP systolic 96–124; BP diastolic 63–85; PULSE 67–94; RESP 22–30; TEMP 36.1–36.6; O2SAT 89–100
--- NOTE | 2020-08-17 02:27 | PCRCNOTE ---
Window of time for administration has passed. See next scheduled administration.
[2020-08-17] MEDS: ALBUTEROL SULFATE NEB 2.5 MG/0.5 ML INH 5 MG INHALATION ×5 (03:03→20:00)
[2020-08-17 08:00] LABS: Glucose Point of Care 151 (65-105)
[2020-08-17 09:42] LABS: Base Excess ABG -4.2 mEq/l (+/-2.0); Fractional Inspired Oxygen 100 %; HCO3 ABG 19.1 mEq/l (22.0-26.0); Modified Allen's Test Pass; Oxygen Content ABG 15.3 %vol (16.0-22.0); Oxygen Saturation ABG 89.6 % (95.0-100.0); Oxyhemoglobin 86.2 % THb (90.0-100.0); PCO2 ABG 30.2 mmHg (35.0-45.0); PO2 ABG 54.8 mmHg (80.0-100.0); PO2 FiO2 Ratio Arterial Blood 0.55 %; Site Drawn RIGHT RADIAL; Total Hemoglobin 12.6 g/dL (12.0-18.0)
[2020-08-17 09:43] LABS: Device NON-INVASIVE VENT; Non-Invasive Expiratory Pressure 10 CMH2O; Non-Invasive Inspiratory Pressure 18 CMH2O; Non-Invasive Vent Rate 4 /MIN
--- NOTE | 2020-08-17 11:09 | PM.PNCARD ---
Progress Note: A&P Assessment and Plan (1) Atrial fibrillation: Code(s): I48.91 - Unspecified atrial fibrillation Status: Acute Assessment and Plan: New diagnosis atrial fibrillation with controlled ventricular responsel, asymptomatic. Patient has multiple risk factor for AFib including hyperthyroidism, severe hypoxia with COVID pneumonia, CAD, hypertension, diabetes mellitus. Patient is on 2 beta-blockers at this time. Will simplify his medical therapy and discontinue bisoprolol, continue atenolol for now and monitor heart rate. Systemic anticoagulation CHADS2 Vasc score 4. Increased bleeding risk on triple therapy. on eliquis and HR is controlled. No changes from a cardiac perspective today (2) Pneumonia due to COVID-19 virus: Code(s): U07.1 - COVID-19; J12.82 - Pneumonia due to coronavirus disease 2018 Status: Acute Assessment and Plan: Severe hypoxia on high-flow oxygen, status post convalescent plasma, dexamethasone, remdesivir. (3) Acute respiratory failure with hypoxia: Code(s): J96.01 - Acute respiratory failure with hypoxia Status: Acute Assessment and Plan: As above. Per primary service. (4) Coronary artery disease: Code(s): I25.10 - Atherosclerotic heart disease of [place] coronary artery without angina pectoris Status: Acute Assessment and Plan: History of multiple stents but not recently as he reports. Review prior cardiac medical records when available as requested. Continue statin, aspirin, beta-phan, MIRA-inhibitor. He is on Ranexa as well as nitrate therapy indicating a history of chronic angina although he is asymptomatic presently. (5) Essential hypertension: Code(s): I10 - Essential (primary) hypertension Status: Acute Assessment and Plan: BP well controlled. (6) Diabetes mellitus: Code(s): E11.9 - Type 2 diabetes mellitus without complications Status: Inactive Assessment and Plan: Per primary service (7) History of coronary artery stent placement: Code(s): Z95.5 - Presence of coronary angioplasty implant and graft Status: Inactive Assessment and Plan: Details unavailable but he denies recent stent implantation in the past couple of years. Subjective Date/time seen: 08/17/20 11:09 Interval history: Follow-up visit in this 69-year-old man with: Shortness of breath evidence of mendez virus pneumonia which is the principal reason for being hospitalized History of coronary artery disease with previous PCI patient says his most recent stent procedure was 2007. He remains on dual anti-platelet therapy Asymptomatic but newly recognized atrial fibrillation. date of service 08/17/2020: + worsening SOB Review of Systems Review of Systems: All systems reviewed & are unremarkable except as noted in HPI and below Constitutional: Constitutional: Reports as per HPI, Reports no additional constitutional complaints, Reports fatigue, Reports lethargy and Reports weakness Eyes: Eyes: Reports as per HPI and Reports no additional eye complaints ENT: Reports system reviewed and no additional complaints, except as documented and Reports as per HPI Cardiovascular: Cardiovascular: Reports as per HPI, Reports no additional cardiovascular complaints, Denies chest pain, Denies leg edema, Denies palpitations, Reports dyspnea and Reports dyspnea on exertion Respiratory: Respiratory: Reports as per HPI, Reports no additional respiratory complaints, Reports cough, Reports dyspnea and Reports dyspnea on exertion Gastrointestinal: Gastrointestinal: Reports as per HPI, Reports no additional gastrointestinal complaints, Denies abdominal pain, Denies melena, Denies hematochezia, Denies diarrhea and Denies hematemesis Genitourinary: Genitourinary: Reports no additional male genitourinary complaints and Reports as per HPI Musculoskeletal: Musculoskeletal: Reports no additional musculosk
[2020-08-17 11:28] LABS: Glucose Point of Care 167 (65-105)
[2020-08-17] MEDS: INSULIN GLARGINE (*BKC) 100 UNITS/ML 14 UNITS SUB-Q (12:10)
[2020-08-17] MEDS: ASPIRIN 81 MG ENTERIC TABLET PO (12:12)
[2020-08-17] MEDS: ACETAMINOPHEN 325 MG TABLET 650 MG PO (12:12)
[2020-08-17] MEDS: hydroCHLOROthiazide 6.25 MG TABLET PO (12:13)
[2020-08-17] MEDS: APIXABAN 5 MG TABLET PO ×2 (12:13→21:12)
[2020-08-17] MEDS: lisinopriL 20 MG TABLET 40 MG PO (12:13)
[2020-08-17] MEDS: guaiFENesin 12 HR 600 MG TABCR PO ×2 (12:13→21:11)
[2020-08-17] MEDS: amLODIPine BESYLATE 5 MG TABLET 10 MG PO (12:14)
[2020-08-17] MEDS: atenoloL 50 MG TABLET PO (12:14)
[2020-08-17] MEDS: RANOLAZINE 500 MG TAB.ER.12H PO ×2 (12:15→21:12)
[2020-08-17] MEDS: ATORVASTATIN 40 MG TABLET 80 MG PO (12:15)
[2020-08-17] MEDS: PANTOPRAZOLE 40 MG TABLET PO (12:15)
[2020-08-17] MEDS: ISOSORBIDE MONONITRATE 30 MG TAB.ER.24H PO (12:15)
[2020-08-17] MEDS: minoxidiL 2.5 MG TABLET PO (12:15)
[2020-08-17] MEDS: DEXAMETHASONE SOD PHOS INJ 4 MG/ML VIAL 6 MG IV PUSH (12:16)
[2020-08-17] MEDS: SILVERGEL (ELTA) 45 ML 1 APPLIC TOPICAL (12:16)
--- NOTE | 2020-08-17 13:04 | P.PNIM_ITS ---
Progress Note: A&P Assessment and Plan (1) Pneumonia due to COVID-19 virus: Code(s): U07.1 - COVID-19; J12.82 - Pneumonia due to coronavirus disease 2019 Status: Acute Assessment and Plan: CXR and CTA both demonstrate diffuse lung disease consistent with COVID-19 pneumonia. COVID-19 testing was performed 08/10 and positive. Oxygen requirements increased starting on the night of 08/14/2020 required high-flow nasal cannula then BiPAP patient then was transferred to the MICU on 08/15/2020 and pulmonology was consulted patient was started on BiPAP. * ABG 08/17 likely mixed venous, but sats in 90s * Continue BiPAP * Continue IV dexamethasone (day 8, initiated 08/10). Remdesivir day 5 completed 08/16/2020. * He received convalescent plasma 08/12 (2) Acute respiratory failure with hypoxia: Code(s): J96.01 - Acute respiratory failure with hypoxia Status: Acute Assessment and Plan: Hypoxic upon presentation at 88% on room air, secondary to COVID-19 viral infection. CTA negative for PE. Oxygen requirements continue to increase and he is now requiring BiPAP. * IMU for BiPAP * Monitor O2 sats (3) Atrial fibrillation: Code(s): I48.91 - Unspecified atrial fibrillation Status: Acute Assessment and Plan: Patient reports no prior known hx of atrial fibrillation. He has a hx of CAD s/p stenting on prasugrel. EKG on arrival to the emergency department demonstrated atrial fibrillation and telemetry monitoring demonstrates atrial fibrillation. Duration is unknown. Rate is controlled. This may be provoked by COVID-19 infection. His filler spreader is Dr. Phillip Snow. 2D echocardiogram demonstrates normal LV systolic function with EF 60-65%, moderate cocentric LV wall thickness, indeterminate diastolic function, mild tricuspid regurgitation, moderate pulmonary hypertension with estimated pulmonary arterial systolic pressure 45 mmHg. [id number] score is 4. TSH is <0.015, free T4 2.26, total T3 0.89, free T3 pending. * Patient on aspirin and Eliquis currently * Continue pantoprazole for GI prophylaxis since he is also on prasugrel and ASA * Discontinue bisoprolol per cardiology and continue atenolol. (4) Diabetes mellitus with hyperglycemia: Qualifiers: Diabetes mellitus halfway insulin use: with halfway use Diabetes mellitus type: type 2 Qualified Code(s): E11.65 - Type 2 diabetes mellitus with hyperglycemia; Z79.4 - assisted (current) use of insulin Code(s): E11.65 - Type 2 diabetes mellitus with hyperglycemia Status: Acute Assessment and Plan: Blood sugars were elevated above target, likely due to IV steroids for COVID, but improved. His home regimen consists of glimepiride, sitagliptin, and lantus. A1c was 7.0. His p.o. intake was poor yesterday and he does not feel like eating much today. * Continue Lantus and lispro * Continue ACHS glucose monitoring, SSI, and hypoglycemic protocol * 08/17 BS 140s to 160s * Oral hypoglycemic medication is on hold (5) Coronary artery disease: Code(s): I25.10 - Atherosclerotic heart disease of [place] coronary artery without angina pectoris Status: Acute Assessment and Plan: Has a history of coronary stents. He is not having any chest pain at this time. * Continue atorvastatin, imdur, aspirin, and ranexa. * Stop prasugrel per cardiology recommendations. (6) Hypokalemia: Code(s): E87.6 - Hypokalemia Status: Acute Assessment and Plan: Replace potassium and monitor CMP (7) Chest [place]
--- NOTE | 2020-08-17 13:04 | PM.IMPN ---
Progress Note: A&P Assessment and Plan (1) Pneumonia due to COVID-19 virus: Code(s): U07.1 - COVID-19; J12.82 - Pneumonia due to coronavirus disease 2018 Status: Acute Assessment and Plan: CXR and CTA both demonstrate diffuse lung disease consistent with COVID-19 pneumonia. COVID-19 testing was performed 08/10 and positive. Oxygen requirements increased starting on the night of 08/14/2020 required high-flow nasal cannula then BiPAP patient then was transferred to the MICU on 08/15/2020 and pulmonology was consulted patient was started on BiPAP. ABG 08/17 likely mixed venous, but sats in 90s Continue BiPAP Continue IV dexamethasone (day 8, initiated 08/10). Remdesivir day 5 completed 08/16/2020. He received convalescent plasma 08/12 (2) Acute respiratory failure with hypoxia: Code(s): J96.01 - Acute respiratory failure with hypoxia Status: Acute Assessment and Plan: Hypoxic upon presentation at 88% on room air, secondary to COVID-19 viral infection. CTA negative for PE. Oxygen requirements continue to increase and he is now requiring BiPAP. IMU for BiPAP Monitor O2 sats (3) Atrial fibrillation: Code(s): I48.91 - Unspecified atrial fibrillation Status: Acute Assessment and Plan: Patient reports no prior known hx of atrial fibrillation. He has a hx of CAD s/p stenting on prasugrel. EKG on arrival to the emergency department demonstrated atrial fibrillation and telemetry monitoring demonstrates atrial fibrillation. Duration is unknown. Rate is controlled. This may be provoked by COVID-19 infection. His corporate pilot is Dr. Phillip Snow. 2D echocardiogram demonstrates normal LV systolic function with EF 60-65%, moderate cocentric LV wall thickness, indeterminate diastolic function, mild tricuspid regurgitation, moderate pulmonary hypertension with estimated pulmonary arterial systolic pressure 45 mmHg. [id number] score is 4. TSH is <0.015, free T4 2.26, total T3 0.89, free T3 pending. Patient on aspirin and Eliquis currently Continue pantoprazole for GI prophylaxis since he is also on prasugrel and ASA Discontinue bisoprolol per cardiology and continue atenolol. 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 His home regimen consists of glimepiride, sitagliptin, and lantus. A1c was 7.0. His p.o. intake was poor yesterday and he does not feel like eating much today. Continue Lantus and lispro Continue ACHS glucose monitoring, SSI, and hypoglycemic protocol 08/17 BS 140s to 160s Oral hypoglycemic medication is on hold (5) Coronary artery disease: Code(s): I25.10 - Atherosclerotic heart disease of [place] coronary artery without angina pectoris Status: Acute Assessment and Plan: Has a history of coronary stents. He is not having any chest pain at this time. Continue atorvastatin, imdur, aspirin, and ranexa. Stop prasugrel per cardiology recommendations. (6) Hypokalemia: Code(s): E87.6 - Hypokalemia Status: Acute Assessment and Plan: Replace potassium and monitor CMP (7) Chest pain: Code(s): R07.9 - Chest pain, unspecified Status: Acute Assessment and Plan: Episode of chest pain most likely related to acute hypoxemic respiratory failure complicated by chronic coronary artery disease probably stable angina resolved (8) Low TSH level: Code(s): R79.89 - Other specified abnormal findings of blood chemistry Status: Acute Assessmen
[2020-08-17] MEDS: PREGABALIN (*CRX) 50 MG CAPSULE 100 MG PO ×2 (13:14→17:18)
[2020-08-17 16:30] LABS: Glucose Point of Care 211 (65-105)
[2020-08-17] MEDS: INSULIN ASPART (*BKC) 100 UNITS/ML SUB-Q (17:19)
[2020-08-17 18:57] LABS: Magnesium 2.1 mg/dL (1.6-2.3); Potassium 4.1 mmol/L (3.4-5.0)
--- NOTE | 2020-08-17 19:32 | PM.PNPUL ---
Progress Note: A&P Assessment and Plan (1) Pneumonia due to COVID-19 virus: Code(s): U07.1 - COVID-19; J12.82 - Pneumonia due to coronavirus disease 2018 Status: Acute Assessment and Plan: Patient was [id number]-COVID to pneumonia with ARDS. Patient is currently receiving treatment with dexamethasone 6 mg IV day 7 of , remdesivir 100 mg which is completed as it is no longer on the list, and he is status post convalescent plasma on 08/12. Despite being on BiPAP 18/8 to 100% with saturations at 94% patient states that he is in minimal respiratory distress alert and oriented x4, and watching TV. At this point I do not think there are any other additional concurrent issues that could be causing his hypoxemia such as fluid overload or a concurrent infection. An echocardiogram has been performed with normal LV function, there are no focal infiltrates suggesting of bacterial infection. Influenza swab is negative 08/15. Will monitor patient and if hypoxemia worsens he may require intubation. 08/16 : will try AVAPS to see if he can tolerate a different mode with lower tidal volumes; I was at the bedside with RT Gonzales attempting different settings without much success. 08/17 : BiPAP is the most comfortable for him; he wore this all day, and wants to take a break from it overnight. PAtients have to have a rest from the constant pressure of the mask on the face. WOuld prefer that he wears the bipap with sleep and high flow O2 when he is awake in the day. I discussed with RT Cherry. (2) Acute respiratory failure with hypoxia: Code(s): J96.01 - Acute respiratory failure with hypoxia Status: Acute Assessment and Plan: Patient with SARS-CoV-2 pneumonia with ARDS requiring BiPAP 18/8 and 100%. He is tolerating this currently with saturations 94% ABG 08/16 on BiPAP 18/8 with 100% and rate 12 : 7.44 / 30 / 72.9 / 20.2 / 95%; mild respiratory alkalosis. May do better with lower minute ventilation. Will follow with you. Subjective Date/time seen: 08/17/20 19:32 This 69 year old man is seen in follow up for COVID with ARDS, placed on BiPAP and is on high flow O2. His lungs have excellent compliance, with tidal volumes over 1000 ml with BiPAP 18/8. He is now on BiPAP 18/10. Still on 100% which can be weaned. Saturation is 100%. Review of Systems Review of Systems: All systems reviewed & are unremarkable except as noted in HPI and below Eyes: Eyes: Reports no additional eye complaints ENT: Reports system reviewed and no additional complaints, except as documented and Reports sinus pressure Cardiovascular: Cardiovascular: Denies chest pain, Denies pedal edema, Denies leg edema and Denies palpitations Respiratory: Respiratory: Reports as per HPI and Reports no additional respiratory complaints Gastrointestinal: Gastrointestinal: Reports no additional gastrointestinal complaints Genitourinary: Genitourinary: Reports no additional male genitourinary complaints Musculoskeletal: Musculoskeletal: Reports no additional musculoskeletal complaints Integumentary/Breasts: Skin/Breast: Reports system reviewed and no additional complaints, except as docu Neurologic: Reports system reviewed and no additional complaints, except as documented and Reports behavioral changes Psychiatric: Psychiatric: Reports no additional psychiatric complaints and Reports behavioral changes Endocrine: Endocrine: Reports no additional endocrine complaints and Denies palpitations Exam Const: General: cooperative and healthy appearing Orientation/consciousness: oriented to person, oriented to place and oriented to time HENMT: Head: normal to inspection Ears: hearing grossly normal bilaterally Mouth: Yes Normal oral and palatal mucosa present Throat: tonsils absent Eyes: General: appearance normal, both eyes
[2020-08-17 20:30] LABS: Glucose Point of Care 196 (65-105)
[2020-08-18] VITALS (30 sets, daily range): BP systolic 106–127; BP diastolic 57–76; PULSE 70–97; RESP 22–32; TEMP 36.3–37.3; O2SAT 84–100; BMI 27.7
[2020-08-18] MEDS: ALBUTEROL SULFATE NEB 2.5 MG/0.5 ML INH 5 MG INHALATION ×6 (00:11→19:38)
[2020-08-18 05:25] LABS: Hematocrit 32.3 % (42.0-52.0); Hemoglobin 11.2 g/dL (14.0-18.0); Mean Corpuscular HGB Conc 34.7 g/dl (32-36); Mean Corpuscular Hemoglobin 29.7 pg (26-34); Mean Corpuscular Volume 85.7 fl (80-100); Mean Platelet Volume 10.6 fl (7.4-10.4); Platelet Count Result 452 k/mm3 (150-375); Red Blood Count 3.77 M/mm3 (4.6-6.20); Red Cell Distribution Width 12.9 % (11.5-14.5); White Blood Count 9.9 K/mm3 (4.5-10.0)
[2020-08-18 05:37] LABS: D Dimer 1.63 ug/mL (<0.48)
[2020-08-18 05:51] LABS: Alanine Aminotransferase 25 U/L (4-50); Albumin Level 2.8 g/dL (3.5-5.1); Alkaline Phosphatase 100 U/L (38-126); Anion Gap 4 mmol/L (8-16); Aspartate Amino Transferase 26 U/L (17-59); Bilirubin,Total 0.8 mg/dL (0.2-1.3); Blood Urea Nitrogen 31 mg/dL (9-20); CRP 8.7 mg/dL (<1.0); Calcium 8.2 mg/dL (8.4-10.2); Carbon Dioxide 27 mmol/L (22-30); Chloride 107 mmol/L (98-107); Estimated CRCL calculation 94 ml/min; Estimated Glomerular Filt Rate > 60; Glucose 182 mg/dL (75-110); Lactate Dehydrogenase 909 U/L (313-618); Sodium 138 mmol/L (137-145)
[2020-08-18 07:50] LABS: Glucose Point of Care 183 (65-105)
[2020-08-18] MEDS: INSULIN GLARGINE (*BKC) 100 UNITS/ML 14 UNITS SUB-Q (10:59)
[2020-08-18] MEDS: DEXAMETHASONE SOD PHOS INJ 4 MG/ML VIAL 6 MG IV PUSH (11:00)
[2020-08-18] MEDS: lisinopriL 20 MG TABLET 40 MG PO (11:01)
[2020-08-18] MEDS: ISOSORBIDE MONONITRATE 30 MG TAB.ER.24H PO (11:02)
[2020-08-18] MEDS: CYANOCOBALAMIN 1,000 MCG TABLET 5000 MCG PO (11:02)
[2020-08-18] MEDS: amLODIPine BESYLATE 5 MG TABLET 10 MG PO (11:03)
[2020-08-18] MEDS: CHOLECALCIFEROL 1,000 UNITS TABLET 2000 UNITS PO (11:03)
[2020-08-18] MEDS: APIXABAN 5 MG TABLET PO ×2 (11:03→20:49)
[2020-08-18] MEDS: hydroCHLOROthiazide 6.25 MG TABLET PO (11:03)
[2020-08-18] MEDS: GLIMEPIRIDE 2 MG TABLET PO ×2 (11:03→20:49)
[2020-08-18] MEDS: atenoloL 50 MG TABLET PO (11:04)
--- NOTE | 2020-08-18 11:05 | PM.IMPN ---
Progress Note: A&P Assessment and Plan (1) Pneumonia due to COVID-19 virus: Code(s): U07.1 - COVID-19; J12.82 - Pneumonia due to coronavirus disease 2018 Status: Acute Assessment and Plan: CXR and CTA both demonstrate diffuse lung disease consistent with COVID-19 pneumonia. COVID-19 test was positive 08/10. Oxygen requirements increased starting on the night of 08/14/2020 required high-flow nasal cannula then BiPAP. Patient transferred to the ICU on 08/15/2020 and pulmonology was consulted. Was able to be weaned to HFNC today with plans to keep him on this as he toelrates. RN called later and informed that patietn back on BiPAP due to hypoxia. Continue BiPAP Continue IV dexamethasone (day 9, initiated 08/10). Remdesivir day 5 completed 08/16/2020. He received convalescent plasma 08/12. (2) Acute respiratory failure with hypoxia: Code(s): J96.01 - Acute respiratory failure with hypoxia Status: Acute Assessment and Plan: Hypoxic upon presentation at 88% on room air, secondary to COVID-19 viral infection. CTA negative for PE. Oxygen requirements continue to increase and he is now requiring BiPAP. IMU for BiPAP Monitor O2 sats (3) Atrial fibrillation: Code(s): I48.91 - Unspecified atrial fibrillation Status: Acute Assessment and Plan: Patient reports no prior known hx of atrial fibrillation. He has a hx of CAD s/p stenting on prasugrel. EKG on arrival to the emergency department demonstrated atrial fibrillation and telemetry monitoring demonstrates atrial fibrillation. Duration is unknown. Rate is controlled. This may be provoked by COVID-19 infection. His space engineer is Dr. Phillip Snow. 2D echocardiogram demonstrates normal LV systolic function with EF 60-65%, moderate cocentric LV wall thickness, indeterminate diastolic function, mild tricuspid regurgitation, moderate pulmonary hypertension with estimated pulmonary arterial systolic pressure 45 mmHg. CHADS2-VASC score is 4. TSH is <0.015, free T4 2.26, total T3 0.89, free T3 pending. Patient on aspirin 81mg and Eliquis currently Continue pantoprazole for GI prophylaxis Discontinue bisoprolol per cardiology and continue atenolol. 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 His home regimen consists of glimepiride, sitagliptin, and lantus. A1c was 7.0. 08/18 BS 160-180 Continue Lantus Continue ACHS glucose monitoring, SSI, and hypoglycemic protocol Oral hypoglycemic medication is on hold (5) Coronary artery disease: Code(s): I25.10 - Atherosclerotic heart disease of [place] coronary artery without angina pectoris Status: Acute Assessment and Plan: Has a history of coronary stents in 1999 and 2008. Continue atorvastatin, Imdur, aspirin, and Ranexa. Prasugrel stopped per cardiology recommendations. (6) Hypokalemia: Code(s): E87.6 - Hypokalemia Status: Acute Assessment and Plan: Stable. Continue to replace potassium as needed. (7) Chest pain: Code(s): R07.9 - Chest pain, unspecified Status: Acute Assessment and Plan: Episode of chest pain most likely related to acute hypoxemic respiratory failure complicated by chronic coronary artery disease. Troponin negative x3. EKG showing anterion T wave changes but persistent on repeat EKG. Symptoms have resolved (8) Low TSH level: Code(s): R79.89 - Other specified abnormal findings of blood chemistry Status: Acute Assessment and Plan: TSH is <0.0
[2020-08-18] MEDS: ATORVASTATIN 40 MG TABLET 80 MG PO (11:13)
[2020-08-18] MEDS: OMEGA 3 POLYUNSAT FATTY ACIDS 1 GM CAP PO ×2 (11:13→20:50)
[2020-08-18] MEDS: ASPIRIN 81 MG ENTERIC TABLET PO (11:14)
[2020-08-18] MEDS: guaiFENesin 12 HR 600 MG TABCR PO ×2 (11:14→20:50)
[2020-08-18] MEDS: RANOLAZINE 500 MG TAB.ER.12H PO ×2 (11:14→20:49)
[2020-08-18] MEDS: PANTOPRAZOLE 40 MG TABLET PO (11:15)
[2020-08-18] MEDS: PREGABALIN (*CRX) 50 MG CAPSULE 100 MG PO ×2 (11:15→20:49)
[2020-08-18] MEDS: MULTIVITAMINS THERAPEUTIC TAB (*BKC) 1 TABLET PO (11:15)
[2020-08-18] MEDS: minoxidiL 2.5 MG TABLET PO (11:15)
[2020-08-18] MEDS: SILVERGEL (ELTA) 45 ML 1 APPLIC TOPICAL (11:15)
[2020-08-18 11:22] LABS: Glucose Point of Care 162 (65-105)
--- NOTE | 2020-08-18 11:22 | PM.PNPUL ---
Progress Note: A&P Assessment and Plan (1) Pneumonia due to COVID-19 virus: Code(s): U07.1 - COVID-19; J12.82 - Pneumonia due to coronavirus disease 2019 Status: Acute Assessment and Plan: Patient was [id number]-COVID to pneumonia with ARDS. Patient is currently receiving treatment with dexamethasone 6 mg IV day 7 of , remdesivir 100 mg which is completed as it is no longer on the list, and he is status post convalescent plasma on 08/12. Despite being on BiPAP 18/ to 100% with saturations at 94% patient states that he is in minimal respiratory distress alert and oriented x4, and watching TV. At this point I do not think there are any other additional concurrent issues that could be causing his hypoxemia such as fluid overload or a concurrent infection. An echocardiogram has been performed with normal LV function, there are no focal infiltrates suggesting of bacterial infection. Influenza swab is negative 08/15. Will monitor patient and if hypoxemia worsens he may require intubation. 08/16 : will try AVAPS to see if he can tolerate a different mode with lower tidal volumes; I was at the bedside with RT Gonzales attempting different settings without much success. 08/17 : BiPAP is the most comfortable for him; he wore this all day, and wants to take a break from it overnight. PAtients have to have a rest from the constant pressure of the mask on the face. WOuld prefer that he wears the bipap with sleep and high flow O2 when he is awake in the day. I discussed with Dunia Simpson, RT. Off remdesivir. CXR with diffuse interstial and alveolar infiltrates, minimally improved on the BiPAP compared to previoously off BiPAP. 08/18 Patient remained on BiPAP overnight. At 09:00 changed to Airvo 50L and 80% FIO2 and I saw him one hour later with saturations 94%. He stated nose was cold and uncomfortable from high flow and I decreased flow to 40 L/min and sats same. Overal breathing better than admission. On dexamethasone 6 mg for now. Will hold remdesivir since he is slowly improving. Attempt to keep sats > 90 with Airvo (increased to FIO2 100% if needed) and if fails then restart BiPAP. CXR (2) Acute respiratory failure with hypoxia: Code(s): J96.01 - Acute respiratory failure with hypoxia Status: Acute Assessment and Plan: Patient with SARS-CoV-2 pneumonia with ARDS requiring BiPAP 18/8 and 100%. He is tolerating this currently with saturations 94% ABG 08/16 on BiPAP 18/8 with 100% and rate 12 : 7.44 / 30 / 72.9 / 20.2 / 95%; mild respiratory alkalosis. May do better with lower minute ventilation. 08/18 BiPAP PRn for now Spoke with hospitalist. Will follow with you. Subjective Date/time seen: 08/18/20 11:22 Interval history: 08/15 New patient consult for COVID pneumonia with ARDS Patient is a 69-year-old man with a history of atrial fibrillation, 2 insulin-dependent diabetes, hypertension who presented with shortness of breath and infiltrates and was found to be COVID 19 positive on 1Patient was admitted and started on dexamethasone and given convalescent plasma on 08/12/2020. Patient was started on Remdesivir on 08/12/2020. Patient had a CT scan of the chest on 110 that showed showed diffuse patchy interstitial and alveolar infiltrates bilaterally. Patient developed worsening hypoxemia and on 08/15 he remained hypoxic on 100%, 15 L non-rebreather his blood gas was 7.4 04/28/2047. Patient was initiated on high-flow nasal cannula oxygen but remained with low oxygen saturation. Patient was then initiated on BiPAP 18/80 and 100% and I was consulted. When I interviewed the patient she was on BiPAP 18 over ate 100%. Patient was awake alert and oriented x4 in no respiratory distress and stated that his breathing was a little bit better than when he 1st presented to the hospital on 08/10. He
[2020-08-18 16:23] LABS: Glucose Point of Care 173 (65-105)
[2020-08-18 20:22] LABS: Glucose Point of Care 185 (65-105)
[2020-08-19] VITALS (23 sets, daily range): BP systolic 105–148; BP diastolic 59–83; PULSE 74–106; RESP 22–37; TEMP 36.2–36.3; O2SAT 91–100
[2020-08-19] MEDS: ALBUTEROL SULFATE NEB 2.5 MG/0.5 ML INH 5 MG INHALATION ×4 (03:22→20:03)
--- NOTE | 2020-08-19 05:44 | PCDIET ---
I WAS OUTSIDE ROOM, GETTING THINGS READY TO GO DRAW PATIENTS BLOOD. HEARD BIPAP START TO ALARM. HURRIED UP AND GOWNED AND GLOVED AND RAN IN TO FIND PATIENT WITH BIPAP OFF AND LIPS BLUE. PATIENT STATED THAT HE WAS GOING TO . CONTINUOUS PULSE OX WAS NOT READING AT THE MOMENT. PLACED BIPAP BACK ON WHILE EDUCATING PATIENT ON STAYING ALIVE AND NOT GIVING UP. THEN CHECKED PULSE OX TO FIND PATIENT AT 73%. LEMUEL PATIENTS BLOOD AND PATIENT IS STILL IN MID 80/S. HAVING A DIFFICULT TIME RECOVERING. WILL CONTINUE TO MONITOR AND PATIENT WILL NEED MORE SUPPORT.
[2020-08-19 05:49] LABS: Hematocrit 36.3 % (42.0-52.0); Hemoglobin 12.9 g/dL (14.0-18.0); Mean Corpuscular HGB Conc 35.5 g/dl (32-36); Mean Corpuscular Hemoglobin 30.6 pg (26-34); Mean Corpuscular Volume 86.2 fl (80-100); Mean Platelet Volume 10.4 fl (7.4-10.4); Platelet Count Result 631 k/mm3 (150-375); Red Blood Count 4.21 M/mm3 (4.6-6.20); Red Cell Distribution Width 13.1 % (11.5-14.5); White Blood Count 16.8 K/mm3 (4.5-10.0)
[2020-08-19 06:15] LABS: Triiodothyronine T3 Free 1.9 pg/mL (2.3-4.2)
[2020-08-19 06:16] LABS: Albumin Level 3.1 g/dL (3.5-5.1); Anion Gap 7 mmol/L (8-16); Blood Urea Nitrogen 27 mg/dL (9-20); Calcium 8.5 mg/dL (8.4-10.2); Carbon Dioxide 27 mmol/L (22-30); Chloride 106 mmol/L (98-107); Estimated CRCL calculation 94 ml/min; Estimated Glomerular Filt Rate > 60; Glucose 130 mg/dL (75-110); Magnesium 1.9 mg/dL (1.6-2.3); Phosphorus 3.1 mg/dL (2.5-4.5); Potassium 3.6 mmol/L (3.4-5.0); Sodium 140 mmol/L (137-145)
[2020-08-19] MEDS: ATORVASTATIN 40 MG TABLET 80 MG PO (08:27)
[2020-08-19] MEDS: APIXABAN 5 MG TABLET PO (08:27)
[2020-08-19] MEDS: amLODIPine BESYLATE 5 MG TABLET 10 MG PO (08:27)
[2020-08-19] MEDS: lisinopriL 20 MG TABLET 40 MG PO (08:28)
[2020-08-19] MEDS: atenoloL 50 MG TABLET PO (08:28)
[2020-08-19] MEDS: DEXAMETHASONE SOD PHOS INJ 4 MG/ML VIAL 6 MG IV PUSH (08:30)
[2020-08-19] MEDS: CHOLECALCIFEROL 1,000 UNITS TABLET 2000 UNITS PO (08:30)
[2020-08-19] MEDS: CYANOCOBALAMIN 1,000 MCG TABLET 5000 MCG PO (08:30)
[2020-08-19] MEDS: OMEGA 3 POLYUNSAT FATTY ACIDS 1 GM CAP PO ×2 (08:31→17:27)
[2020-08-19] MEDS: minoxidiL 2.5 MG TABLET PO (08:31)
[2020-08-19] MEDS: guaiFENesin 12 HR 600 MG TABCR PO (08:31)
[2020-08-19] MEDS: MULTIVITAMINS THERAPEUTIC TAB (*BKC) 1 TABLET PO (08:31)
[2020-08-19] MEDS: hydroCHLOROthiazide 6.25 MG TABLET PO (08:31)
[2020-08-19] MEDS: RANOLAZINE 500 MG TAB.ER.12H PO (08:31)
[2020-08-19] MEDS: ISOSORBIDE MONONITRATE 30 MG TAB.ER.24H PO (08:31)
[2020-08-19] MEDS: PANTOPRAZOLE 40 MG TABLET PO (08:31)
[2020-08-19] MEDS: ASPIRIN 81 MG ENTERIC TABLET PO (08:32)
[2020-08-19] MEDS: PREGABALIN (*CRX) 50 MG CAPSULE 100 MG PO ×2 (08:38→17:29)
--- NOTE | 2020-08-19 09:39 | PM.PNPUL ---
Progress Note: A&P Assessment and Plan (1) Pneumonia due to COVID-19 virus: Code(s): U07.1 - COVID-19; J12.82 - Pneumonia due to coronavirus disease 2019 Status: Acute Assessment and Plan: Patient was [id number]-COVID to pneumonia with ARDS. Patient is currently receiving treatment with dexamethasone 6 mg IV day 7 of , remdesivir 100 mg which is completed as it is no longer on the list, and he is status post convalescent plasma on 08/12. Despite being on BiPAP 18/8 to 100% with saturations at 94% patient states that he is in minimal respiratory distress alert and oriented x4, and watching TV. At this point I do not think there are any other additional concurrent issues that could be causing his hypoxemia such as fluid overload or a concurrent infection. An echocardiogram has been performed with normal LV function, there are no focal infiltrates suggesting of bacterial infection. Influenza swab is negative 08/15. Will monitor patient and if hypoxemia worsens he may require intubation. 08/16 : will try AVAPS to see if he can tolerate a different mode with lower tidal volumes; I was at the bedside with RT Gonzales attempting different settings without much success. 08/17 : BiPAP is the most comfortable for him; he wore this all day, and wants to take a break from it overnight. PAtients have to have a rest from the constant pressure of the mask on the face. WOuld prefer that he wears the bipap with sleep and high flow O2 when he is awake in the day. I discussed with Dunia Simpson, RT. Off remdesivir. CXR with diffuse interstial and alveolar infiltrates, minimally improved on the BiPAP compared to previoously off BiPAP. 08/18 Patient remained on BiPAP overnight. At 09:00 changed to Airvo 50L and 80% FIO2 and I saw him one hour later with saturations 94%. He stated nose was cold and uncomfortable from high flow and I decreased flow to 40 L/min and sats same. Overal breathing better than admission. On dexamethasone 6 mg for now. Will hold remdesivir since he is slowly improving. Attempt to keep sats > 90 with Airvo (increased to FIO2 100% if needed) and if fails then restart BiPAP. Tolerated off BiPAP for 3 hjours. 08/19 Remained on BiPAP 18/8 100% overnight. Restarted remdesivir today as somewhat worse today. Will complete total 10 days. Continue dexamethasone. CXR in morning. (2) Acute respiratory failure with hypoxia: Code(s): J96.01 - Acute respiratory failure with hypoxia Status: Acute Assessment and Plan: Patient with SARS-CoV-2 pneumonia with ARDS requiring BiPAP 18/8 and 100%. He is tolerating this currently with saturations 94% ABG 08/16 on BiPAP 18/8 with 100% and rate 12 : 7.44 / 30 / 72.9 / 20.2 / 95%; mild respiratory alkalosis. May do better with lower minute ventilation. 08/18 BiPAP PRn for now, tolerated 3 hours AIRVO. 08/19 BIAPP 18/8 100% overnight and today I changed to AVAPS rate 20, TV 600, E pap5, I min 9, I max 25, rise 1 fastest, 100% and sats 100%. He states NRB is beat for him but he had immediate desats to 81% when tried him on this. Will follow with you. Subjective Date/time seen: 08/19/20 09:39 Interval history: 08/15 New patient consult for COVID pneumonia with ARDS Patient is a 69-year-old man with a history of atrial fibrillation, 2 insulin-dependent diabetes, hypertension who presented with shortness of breath and infiltrates and was found to be COVID 19 positive on 1Patient was admitted and started on dexamethasone and given convalescent plasma on 08/12/2020. Patient was started on Remdesivir on 08/12/2020. Patient had a CT scan of the chest on 110 that showed showed diffuse patchy interstitial and alveolar infiltrates bilaterally. Patient developed worsening hypoxemia and on 08/15 he remained hypoxic on 100%, 15 L non-rebreather his blood gas was 7.4
--- NOTE | 2020-08-19 09:52 | PM.PNCARD ---
Progress Note: A&P Assessment and Plan (1) Pneumonia due to COVID-19 virus: Code(s): U07.1 - COVID-19; J12.82 - Pneumonia due to coronavirus disease 2019 Status: Acute Assessment and Plan: Management as per primary team and pulmonology (2) Atrial fibrillation: Code(s): I48.91 - Unspecified atrial fibrillation Status: Acute Assessment and Plan: Patient has been in atrial fibrillation with controlled ventricular response. Continue rate control with atenolol, and anticoagulation with apixaban. May hold other antihypertensives if blood pressure becomes low, or to leave room for rate control with AV lizzette blocking agent. Subjective Date/time seen: 08/19/20 09:52 Date of Service: 08/19/2020 Chief complaint: Shortness of breath Interval history: Patient remains on BiPAP for respiratory distress. On telemetry, he is in atrial fibrillation with controlled ventricular response. Patient has been on beta-phan and anticoagulation. Exam Narrative: Exam Narrative: PHYSICAL EXAMINATION: Limited GENERAL: Alert, on BiPAP MENTAL STATUS: Alert HEART: Atrial fibrillation controlled ventricular response on telemetry Objective Data Vital Signs Vital Signs: Vital Signs - 24 hr 08/18/20 10:00 08/18/20 10:05 08/18/20 10:24 Temperature Pulse Rate 84 Respiratory Rate Blood Pressure Pulse Oximetry 85 L 92 08/18/20 11:04 08/18/20 11:40 08/18/20 11:42 Temperature 36.3 C L Pulse Rate 92 90 Respiratory Rate 24 H Blood Pressure 127/57 L Pulse Oximetry 84 L 90 08/18/20 11:45 08/18/20 12:00 08/18/20 14:00 Temperature Pulse Rate 79 87 84 Respiratory Rate 23 H 32 H Blood Pressure Pulse Oximetry 95 95 08/18/20 14:44 08/18/20 16:00 08/18/20 16:19 Temperature 36.6 C Pulse Rate 84 78 89 Respiratory Rate 22 H 31 H 28 H Blood Pressure 116/63 Pulse Oximetry 98 95 08/18/20 16:24 08/18/20 18:00 08/18/20 19:38 Temperature Pulse Rate 89 82 85 Respiratory Rate 28 H 30 H Blood Pressure Pulse Oximetry 95 95 08/18/20 19:48 08/18/20 20:00 08/18/20 22:00 Temperature 37.3 C Pulse Rate 88 85 82 Respiratory Rate 29 H 30 H Blood Pressure 116/69 Pulse Oximetry 92 08/18/20 23:56 08/19/20 00:00 08/19/20 00:10 Temperature 37.1 C Pulse Rate 77 77 86 Respiratory Rate 27 H 27 H 26 H Blood Pressure 114/62 Pulse Oximetry 97 97 08/19/20 00:20 08/19/20 02:00 08/19/20 03:22 Temperature Pulse Rate 84 82 82 Respiratory Rate 23 H 24 H Blood Pressure Pulse Oximetry 95 08/19/20 04:00 08/19/20 06:00 08/19/20 08:00 Temperature 36.3 C L 36.3 C L Pulse Rate 105 H 104 H 106 H Respiratory Rate 35 H 31 H Blood Pressure 126/59 L 148/83 H Pulse Oximetry 96 92 08/19/20 09:03 08/19/20 09:25 08/19/20 09:29 Temperature Pulse Rate 74 106 H 101 H Respiratory Rate 24 H 35 H 25 H Blood Pressure Pulse Oximetry 95 Intake/Output Intake/Output: Intake & Output 08/16/20 08/17/20 08/18/20 08/19/20 23:59 23:59 23:59 23:59 Intake Total 800 200 220 Output Total 028 273 8725 450 Balance -25 -700 -780 -450 Meds/Results Medications: Active Medications Generic Name Dose Route Start Last Admin Trade Name Freq PRN Reason Stop Dose Admin Acetaminophen 650 mg 08/10/20 18:11 08/17/20 12:12 Acetaminophen 325 Mg Tablet PO 650 mg Q4H PRN Administration Mild Pain (1-3) or Fever Albuterol 5 mg 08/15/20 12:00 08/19/20 09:03 Albuterol Sulfate Neb 2.5 Mg/0.5 Ml Inh INHALATION 5 mg Q4HRT SILAS Administration Amlodipine Besylate 10 mg 08/11/20 09:00 08/19/20 08:27 Amlodipine Besylate 5 Mg Tablet PO 10 mg DAILY SILAS Administration Apixaban 5 mg 08/15/20 09:00 08/19/20 08:27 Apixaban 5 Mg Tablet PO 5 mg Q12HR SILAS Administration Aspirin 81 mg 08/11/20 09:00 08/19/20 08:32 Aspirin 81 Mg Enteric Tablet PO 81 mg DAILY SILAS Administration Atenolol 50 m
--- NOTE | 2020-08-19 09:56 | PM.IMPN ---
Progress Note: A&P Assessment and Plan (1) Pneumonia due to COVID-19 virus: Code(s): U07.1 - COVID-19; J12.82 - Pneumonia due to coronavirus disease 2018 Status: Acute Assessment and Plan: CXR and CTA both demonstrate diffuse lung disease consistent with COVID-19 pneumonia. COVID-19 test was positive 08/10. Oxygen requirements increased starting on the night of 08/14/2020 required high-flow nasal cannula then BiPAP. Patient transferred to the IMU on 08/15/2020 and pulmonology was consulted. Was able to be weaned to HFNC yesterday for a short time but now BiPAP dependent. Continue BiPAP He received convalescent plasma 08/12. Completing IV dexamethasone today (day 10, initiated 08/10). Remdesivir day 5 completed 08/16/2020. Plan for repeat course of Remdesivir. (2) Acute respiratory failure with hypoxia: Code(s): J96.01 - Acute respiratory failure with hypoxia Status: Acute Assessment and Plan: Hypoxic upon presentation at 88% on room air, secondary to COVID-19 viral infection. CTA negative for PE. Oxygen requirements continue to increase and he is now BiPAP dependent and on 100%. IMU for BiPAP Monitor O2 sats Check CXR Discussed with cotton agent (3) Atrial fibrillation: Code(s): I48.91 - Unspecified atrial fibrillation Status: Acute Assessment and Plan: Patient reports no prior known hx of atrial fibrillation. He has a hx of CAD s/p stenting on prasugrel. EKG on arrival to the emergency department demonstrated atrial fibrillation and telemetry monitoring demonstrates atrial fibrillation. Duration is unknown. Rate is controlled. This may be provoked by COVID-19 infection or from hyperthyroidism. His patient registration representative is Dr. Phillip Snow. 2D echocardiogram demonstrates normal LV systolic function with EF 60-65%, moderate concentric LV wall thickness, indeterminate diastolic function, mild tricuspid regurgitation, moderate pulmonary hypertension with estimated pulmonary arterial systolic pressure 45 mmHg. CHADS2-VASC score is 4. TSH is <0.015, free T4 2.26, total T3 0.89, free T3 low. Patient on aspirin 81mg and Eliquis currently Continue pantoprazole for GI prophylaxis HR controlled; Discontinue bisoprolol per cardiology and continue atenolol. 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 His home regimen consists of glimepiride, sitagliptin, and lantus. A1c was 7.0. 08/19 BS 130 Continue Lantus Continue ACHS glucose monitoring, SSI, and hypoglycemic protocol Oral hypoglycemic medication is on hold (5) Coronary artery disease: Code(s): I25.10 - Atherosclerotic heart disease of [place] coronary artery without angina pectoris Status: Acute Assessment and Plan: Has a history of coronary stents in 1999 and 2008. Continue atenolol, atorvastatin, Imdur, aspirin, and Ranexa. Prasugrel stopped per cardiology recommendations. (6) Hypokalemia: Code(s): E87.6 - Hypokalemia Status: Acute Assessment and Plan: Stable. Continue to replace potassium as needed. (7) Chest pain: Code(s): R07.9 - Chest pain, unspecified Status: Acute Assessment and Plan: Episode of chest pain most likely related to acute hypoxemic respiratory failure complicated by chronic coronary artery disease. Troponin negative x3. EKG showing anterion T wave changes but persistent on repeat EKG. Cardiology following. Symptoms have resolved. Continue ASA, atenolol, Lipitor (8) Low TSH level: C
--- NOTE | 2020-08-19 09:56 | P.PNIM_ITS ---
Progress Note: A&P Assessment and Plan (1) Pneumonia due to COVID-19 virus: Code(s): U07.1 - COVID-19; J12.82 - Pneumonia due to coronavirus disease 2019 Status: Acute Assessment and Plan: CXR and CTA both demonstrate diffuse lung disease consistent with COVID-19 pneumonia. COVID-19 test was positive 08/10. Oxygen requirements increased starting on the night of 08/14/2020 required high-flow nasal cannula then BiPAP. Patient transferred to the IMU on 08/15/2020 and pulmonology was consulted. Was able to be weaned to HFNC yesterday for a short time but now BiPAP dependent. * Continue BiPAP * He received convalescent plasma 08/12. * Completing IV dexamethasone today (day 10, initiated 08/10). * Remdesivir day 5 completed 08/16/2020. Plan for repeat course of Remdesivir. (2) Acute respiratory failure with hypoxia: Code(s): J96.01 - Acute respiratory failure with hypoxia Status: Acute Assessment and Plan: Hypoxic upon presentation at 88% on room air, secondary to COVID-19 viral infection. CTA negative for PE. Oxygen requirements continue to increase and he is now BiPAP dependent and on 100%. * IMU for BiPAP * Monitor O2 sats * Check CXR * Discussed with human resources operations coordinator (3) Atrial fibrillation: Code(s): I48.91 - Unspecified atrial fibrillation Status: Acute Assessment and Plan: Patient reports no prior known hx of atrial fibrillation. He has a hx of CAD s/p stenting on prasugrel. EKG on arrival to the emergency department demonstrated atrial fibrillation and telemetry monitoring demonstrates atrial fibrillation. Duration is unknown. Rate is controlled. This may be provoked by COVID-19 infection or from hyperthyroidism. His medical asst is Dr. Phillip Snow. 2D echocardiogram demonstrates normal LV systolic function with EF 60-65%, moderate concentric LV wall thickness, indeterminate diastolic function, mild tricuspid regurgitation, moderate pulmonary hypertension with estimated pulmonary arterial systolic pressure 45 mmHg. CHADS2-VASC score is 4. TSH is <0.015, free T4 2.26, total T3 0.89, free T3 low. * Patient on aspirin 81mg and Eliquis currently * Continue pantoprazole for GI prophylaxis * HR controlled; Discontinue bisoprolol per cardiology and continue atenolol. 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 His home regimen consists of glimepiride, sitagliptin, and lantus. A1c was 7.0. * 08/19 BS 130 * Continue Lantus * Continue ACHS glucose monitoring, SSI, and hypoglycemic protocol * Oral hypoglycemic medication is on hold (5) Coronary artery disease: Code(s): I25.10 - Atherosclerotic heart disease of [place] coronary artery without angina pectoris Status: Acute Assessment and Plan: Has a history of coronary stents in 1999 and 2008. * Continue atenolol, atorvastatin, Imdur, aspirin, and Ranexa. * Prasugrel stopped per cardiology recommendations. (6) Hypokalemia: Code(s): E87.6 - Hypokalemia Status: Acute Assessment and Plan: Stable. Continue to replace potassium as needed. (7) Chest pain: Code(s): R07.9 - Chest pain, unspecified
[2020-08-19 09:57] LABS: Alanine Aminotransferase 26 U/L (4-50)
[2020-08-19 10:43] LABS: Glucose Point of Care 123 (65-105)
[2020-08-19] MEDS: REMDESIVIR 200 MG/NS 250 ML 200 MG/250 ML BAG 250 MG IVPB (11:49)
[2020-08-19] MEDS: SILVERGEL (ELTA) 45 ML 1 APPLIC TOPICAL (12:48)
[2020-08-19] MEDS: INSULIN GLARGINE (*BKC) 100 UNITS/ML 14 UNITS SUB-Q (12:48)
[2020-08-19] MEDS: CENTRAL LINE FLUSH 10 ML IV PUSH (15:27)
[2020-08-19 16:14] LABS: Glucose Point of Care 193 (65-105)
[2020-08-19] MEDS: INSULIN ASPART (*BKC) 100 UNITS/ML SUB-Q (17:27)
[2020-08-19] MEDS: GLIMEPIRIDE 2 MG TABLET PO (17:27)
--- NOTE | 2020-08-19 17:43 | PCRCNOTE ---
Window of time for administration has passed. See next scheduled administration.
[2020-08-19 17:48] LABS: Glucose Point of Care 246 (65-105)
[2020-08-19 20:25] LABS: Glucose Point of Care 235 (65-105)
--- NOTE | 2020-08-19 21:51 | PC.NURSE ---
PATIENT'S O2 SAT DECREASED TO LOW 80'S . PATIENT IS SLEEPING ON HIS LEFT SIDE AND HIS MASK IS ON WITH NO LEAKAGE. INCREASED FIO2 TO 100%. PATIENT IS 92% ON 100 %.
--- NOTE | 2020-08-19 23:15 | PC.NURSE ---
PATIENT WAS FOUND OFF BIPAP AGAIN , O2 SAT'S UNREADABLE. PATIENT CONFUSED, PULLED OUT COTA CATHETER, BLUISH IN COLOR, USE OF ACCESSORY MUSCLES. WAS JUST AT 99% NOT 10 MIN AGO AND WAS GOING TO TRY TO ATTEMPT TO GIVE PATIENT HIS MEDICATION, BUT PATIENT KEEPS TAKING BIPAP OFF AND IS VERY SLOW TO RECOVER. O2 DECREASED INTO LOW 70'S TO UPPER 60'S EVERY TIME.
--- NOTE | 2020-08-19 23:49 | PC.NURSE ---
PATIENT CONTACTED AND UPDATED ON PATIENTS CONDITION.
[2020-08-20] VITALS (49 sets, daily range): BP systolic 85–166; BP diastolic 53–102; PULSE 82–591; RESP 26–40; TEMP 36.2–38.4; O2SAT 81–96; BMI 27.7
[2020-08-20] MEDS: CENTRAL LINE FLUSH 10 ML IV PUSH ×3 (00:03→13:39)
[2020-08-20] MEDS: LORazepam INJ (*CRX) 2 MG/ML VIAL 0.5 MG IV PUSH (00:14)
--- NOTE | 2020-08-20 00:19 | PC.NURSE ---
PATIENTS O2 SAT'S MAINTAINING IN MID 80'S ON 100% FIO2. PATIENT IS KEEPING BIPAP ON WITH THE MEDICATION THAT WAS GIVEN. BUT PATIENT IS NOT RECOVERING. PATIENT WAS TURNED TO LEFT SIDE FOR AERATION AND KEEP ROLLING TO HIS BACK. JUST TURNED PATIENT BACK ONTO HIS SIDE. PATIENT CURRENT O2 SAT IS 85%.
[2020-08-20 00:52] LABS: Alveolar/Arterial O2 Gradient 631.2 mmHg; Base Excess ABG 0.3 mEq/l (+/-2.0); Carboxyhemoglobin 0.3 % THb (0-2.0); Fractional Inspired Oxygen 100 %; HCO3 ABG 23.5 mEq/l (22.0-26.0); Methemoglobin ABG 0.2 %THb (0-1.5); Oxygen Content ABG 14.9 %vol (16.0-22.0); Oxygen Saturation ABG 87.1 % (95.0-100.0); Oxyhemoglobin 82.9 % THb (90.0-100.0); PCO2 ABG 33.2 mmHg (35.0-45.0); PO2 ABG 48.6 mmHg (80.0-100.0); PO2 FiO2 Ratio Arterial Blood 0.49 %; Reduced Hemoglobin 16.6 %THb (0-5.0); Total Hemoglobin 12.8 g/dL (12.0-18.0); pH ABG 7.467 (7.350-7.450)
[2020-08-20 00:53] LABS: Device OTHER DEVICE; Modified Allen's Test Pass; Site Drawn LEFT RADIAL
[2020-08-20] MEDS: FENTANYL 2,500MCG/NS250ML(*CRX 2,500 MCG/250 ML BAG 10 MCG IV CONT (01:30)
--- NOTE | 2020-08-20 01:30 | PC.NURSE ---
PATIENT TRANSFERRED TO ICU FOR INTUBATION DUE TO DETERIORATING CONDITION PER DR CASAS.
--- NOTE | 2020-08-20 01:34 | PC.NURSE ---
PATIENT UPDATED ON PATIENT'S CONDITION.
--- NOTE | 2020-08-20 01:48 | WPDPROCEDUR ---
Procedures Intubation Intubation Date: 08/20/20 Intubation Time: 01:30 Consent: Verbal A pre-procedural Time-Out was completed immediately before starting the procedure and confirmed: Patient Identification, Site, Procedure, Patient Position and the Availability of Requisite Equipment: Yes Sedative: etomidate Mg given: 20 Paralytic: rocuronium Mg given: 55 Laryngoscope: fiber optic video scope ET tube size: cuffed Tube secured depth (cm): 26 Tube secured location: lips Tube placement confirmation: visualized tube passing through cords, equal breath sounds bilaterally, no breath sounds over epigastrium and confirmation by capnometry Patient tolerated procedure: well and no complications Intubation complications: none Additional comments: Date of service was 08/20/2020 at 01:30 hrs
--- NOTE | 2020-08-20 02:27 | P.PNCROSS_ITS ---
Event Note Event Note Event Note: Transfer note this is a 69-year-old male who is being treated for COVID pneumonia. The patient tonight was on a AVAPS with a tidal volume of 650, EPAP of 8, and FiO2 of 100% and began to saturating in the mid 80s on pulse oximetry. Nursing staff alerted me that the patient seemed very agitated and was not keeping the mask on his face. The patient pulled out his Adkins catheter. We administered a half a mg of Ativan IV and this seemed to help calm the patient down and he kept the mask on his face. Approximately 40 minutes later nursing staff called me again to alert me that the patient again was desaturating. ABG was obtained which confirmed the patient's low PO2 of 48.6. I transferred the patient to the ICU for emergent endotracheal intubation and mechanical ventilation as the patient could not maintain his sats. I have called our balance wheel screw hole tapper, Dr. Briceno and discussed the case with him in detail and he is in agreement.
[2020-08-20] MEDS: ROCURONIUM BROMIDE 50 MG/5 ML VIAL (02:43)
[2020-08-20] MEDS: ALBUTEROL SULFATE NEB 2.5 MG/0.5 ML INH 5 MG INHALATION ×4 (03:25→17:30)
[2020-08-20] MEDS: CISATRACURIUM BESYLATE 200 MG in DEXTROSE 5% 80 ML 8.12 ML IV CONT (03:30)
[2020-08-20 03:31] LABS: Alveolar/Arterial O2 Gradient 574.6 mmHg; Base Excess ABG -3.3 mEq/l (+/-2.0); Device VENTILATOR; Fractional Inspired Oxygen 100 %; HCO3 ABG 24.6 mEq/l (22.0-26.0); Modified Allen's Test Pass; Oxygen Content ABG 17.4 %vol (16.0-22.0); Oxygen Saturation ABG 94.1 % (95.0-100.0); Oxyhemoglobin 92.1 % THb (90.0-100.0); PCO2 ABG 56.8 mmHg (35.0-45.0); PO2 ABG 81.6 mmHg (80.0-100.0); PO2 FiO2 Ratio Arterial Blood 0.82 %; Site Drawn LEFT RADIAL; Total Hemoglobin 13.4 g/dL (12.0-18.0); pH ABG 7.255 (7.350-7.450)
[2020-08-20 03:32] LABS: Arterial Blood Gas PEEP 12 cmH2O; Arterial Blood Gas Tidal Volume 420 ml; Arterial Blood Gas Vent Mode CMV; Arterial Blood Gas Ventilator rate 26 /MIN
[2020-08-20] MEDS: SODIUM CHLORIDE 0.9% IV 500 ML 999 ML IV CONT (04:06)
[2020-08-20 05:01] LABS: Basophils Percent Auto 0.1 % (0.2-1.2); Hematocrit 34.9 % (42.0-52.0); Hemoglobin 11.8 g/dL (14.0-18.0); Immature Granulocyte Absolute 0.19 K/mm3 (0.00-0.031); Immature Granulocyte Percent A 0.9 % (0-0.5); Lymphocytes Absolute Auto 0.47 K/mm3 (0.9-3.2); Lymphocytes Percent Auto 2.2 % (18.3-44.2); Mean Corpuscular HGB Conc 33.8 g/dl (32-36); Mean Corpuscular Hemoglobin 30.2 pg (26-34); Mean Corpuscular Volume 89.3 fl (80-100); Monocytes Absolute Auto 1.1 K/mm3 (0.1-0.6); Monocytes Percent Auto 5.2 % (2.6-8.5); Neutrophils Absolute Auto 19.8 K/mm3 (1.3-6.7); Neutrophils Percent Auto 91.6 % (45.5-73.1); Platelet Count Result 522 k/mm3 (150-375); Red Blood Count 3.91 M/mm3 (4.6-6.20); Red Cell Distribution Width 13.1 % (11.5-14.5); White Blood Count 21.6 K/mm3 (4.5-10.0)
[2020-08-20 05:14] LABS: Alanine Aminotransferase 20 U/L (4-50); Anion Gap 1 mmol/L (8-16); Blood Urea Nitrogen 35 mg/dL (9-20); Calcium 7.7 mg/dL (8.4-10.2); Carbon Dioxide 31 mmol/L (22-30); Chloride 106 mmol/L (98-107); Estimated CRCL calculation 67 ml/min; Estimated Glomerular Filt Rate > 60; Glucose 203 mg/dL (75-110); Sodium 138 mmol/L (137-145)
--- NOTE | 2020-08-20 08:50 | PM.PNCARD ---
Progress Note: A&P Additional Plan 69-year-old white male with: Figueroa virus pneumonia clinically worsening despite hospital treatment and now on mechanical ventilator support. Prognosis in this setting is obviously guarded Persistent atrial fibrillation rate controlled and anticoagulated no need for adjustment in therapy at this time Jayy Gil MD [facility] Subjective Date/time seen: 08/20/20 08:50 Interval history: 69-year-old man with: Atrial fibrillation which has been persistent patient is rate controlled and anticoagulated. Hemodynamically stable from this perspective Figueroa virus pneumonia with progression in respiratory distress requiring transfer to the ICU intubation and initiation of mechanical ventilation yesterday evening. Prognosis now from this respect is obviously poor Objective Data Vital Signs Vital Signs: Vital Signs - 24 hr 08/19/20 09:03 08/19/20 09:25 08/19/20 09:29 Temperature Pulse Rate 74 106 H 101 H Respiratory Rate 24 H 35 H 25 H Blood Pressure Pulse Oximetry 95 08/19/20 10:00 08/19/20 11:30 08/19/20 12:00 Temperature 36.3 C L Pulse Rate 81 82 87 Respiratory Rate 37 H 34 H Blood Pressure 105/59 L Pulse Oximetry 97 92 08/19/20 13:59 08/19/20 14:00 08/19/20 16:00 Temperature 36.2 C L Pulse Rate 80 91 88 Respiratory Rate 24 H 36 H 36 H Blood Pressure 115/60 Pulse Oximetry 92 91 08/19/20 17:22 08/19/20 18:00 08/19/20 20:00 Temperature 36.3 C L Pulse Rate 86 82 83 Respiratory Rate 30 H 23 H Blood Pressure 112/70 Pulse Oximetry 92 100 08/19/20 20:09 08/19/20 20:19 08/19/20 22:00 Temperature Pulse Rate 83 89 87 Respiratory Rate 23 H 22 H Blood Pressure Pulse Oximetry 08/20/20 00:00 08/20/20 01:15 08/20/20 01:30 Temperature 36.2 C L Pulse Rate 86 110 H 102 H Respiratory Rate 40 H 30 H Blood Pressure 154/65 H Pulse Oximetry 90 93 08/20/20 02:00 08/20/20 02:25 08/20/20 02:30 Temperature 36.8 C 37.2 C Pulse Rate 103 H 98 98 Respiratory Rate 28 H 28 H 29 H Blood Pressure 166/102 H 94/56 L Pulse Oximetry 92 81 L 08/20/20 03:00 08/20/20 03:20 08/20/20 03:30 Temperature 37.1 C Pulse Rate 92 87 96 Respiratory Rate 26 H 26 H 26 H Blood Pressure 99/69 L 106/64 Pulse Oximetry 92 08/20/20 03:55 08/20/20 04:00 08/20/20 06:00 Temperature 37.0 C 36.8 C Pulse Rate 87 93 86 Respiratory Rate 30 H 30 H Blood Pressure 102/66 106/68 Pulse Oximetry 93 94 96 08/20/20 08:00 08/20/20 08:32 Temperature 36.4 C Pulse Rate 89 84 Respiratory Rate 30 H 30 H Blood Pressure 92/62 L Pulse Oximetry 96 Intake/Output Intake/Output: Intake & Output 08/17/20 08/18/20 08/19/20 08/20/20 23:59 23:59 23:59 23:59 Intake Total 200 220 250 200 Output Total 900 1000 950 200 Balance -700 -780 -700 0 Meds/Results Medications: Active Medications Generic Name Dose Route Start Last Admin Trade Name Freq PRN Reason Stop Dose Admin Acetaminophen 650 mg 08/10/20 18:11 08/17/20 12:12 Acetaminophen 325 Mg Tablet PO 650 mg Q4H PRN Administration Mild Pain (1-3) or Fever Albuterol 5 mg 08/15/20 12:00 08/20/20 08:32 Albuterol Sulfate Neb 2.5 Mg/0.5 Ml Inh INHALATION 5 mg Q4HRT SILAS Administration Apixaban 5 mg 08/15/20 09:00 08/20/20 00:02 Apixaban 5 Mg Tablet PO Not Given Q12HR SILAS Aspirin 81 mg 08/11/20 09:00 08/19/20 08:32 Aspirin 81 Mg Enteric Tablet PO 81 mg DAILY SILAS Administration Atorvastatin Calcium 80 mg 08/11/20 09:00 08/19/20 08:27 Atorvastatin 40 Mg Tablet PO 80 mg DAILY SILAS Administration Dextrose 12.5 gm 08/10/20 22:50 Dextrose 50% 25 Gm/50 Ml Syringe IV PUSH PRN PRN Hypoglycemia Protocol Glucagon 1 mg 08/10/20 22:50 Glucagon For Inj 1 Mg Vial IM PRN PRN Hypoglycemia Protocol Glucose 15 gm 08/10/20 22:50 08/15/20 07:05 Glucose Oral Gel 15 Gm Of Glucse In 37.5 Gm Tube PO 15
[2020-08-20] MEDS: APIXABAN 5 MG TABLET PO ×2 (09:06→19:48)
[2020-08-20] MEDS: minoxidiL 2.5 MG TABLET PO (09:06)
[2020-08-20] MEDS: ATORVASTATIN 40 MG TABLET 80 MG PO (09:06)
[2020-08-20] MEDS: INSULIN GLARGINE (*BKC) 100 UNITS/ML 14 UNITS SUB-Q (09:06)
[2020-08-20] MEDS: CHOLECALCIFEROL 1,000 UNITS TABLET 2000 UNITS PO (09:06)
[2020-08-20] MEDS: INSULIN ASPART (*BKC) 100 UNITS/ML SUB-Q (09:07)
[2020-08-20] MEDS: PANTOPRAZOLE SODIUM IV 40 MG VIAL IV PUSH (09:07)
[2020-08-20] MEDS: SILVERGEL (ELTA) 45 ML 1 APPLIC TOPICAL (09:14)
[2020-08-20 09:34] LABS: Alveolar/Arterial O2 Gradient 495.6 mmHg; Base Excess ABG -2.6 mEq/l (+/-2.0); Fractional Inspired Oxygen 90 %; Oxygen Content ABG 16.7 %vol (16.0-22.0); Oxygen Saturation ABG 93.8 % (95.0-100.0); Oxyhemoglobin 92.6 % THb (90.0-100.0); PO2 ABG 81.8 mmHg (80.0-100.0); PO2 FiO2 Ratio Arterial Blood 0.91 %; Total Hemoglobin 12.8 g/dL (12.0-18.0)
[2020-08-20 09:36] LABS: PCO2 ABG 62.7 mmHg (35.0-45.0); pH ABG 7.235 (7.350-7.450)
[2020-08-20 09:37] LABS: Arterial Blood Gas Vent Mode CMV; Arterial Blood Gas Ventilator rate 30 /MIN; Device VENTILATOR; Modified Allen's Test Pass; Site Drawn LEFT RADIAL
--- NOTE | 2020-08-20 09:37 | WPDCNINT ---
Assessment and Plan Assessment and plan (1) Acute respiratory failure with hypoxia: Code(s): J96.01 - Acute respiratory failure with hypoxia Status: Acute Assessment and Plan: Acute hypoxemic respiratory failure like COVID-19 diffuse infiltrates -patient intubated on 08/20/2020 in the early hours -patient on CMV mode of ventilation, low tidal volume to prevent volume trauma or barotrauma. -remains on peep of 12 and 100% FiO2, wean FiO2 as tolerated. -will prone patient today -sedated with fentanyl, Versed -Nimbex for neuromuscular blockade (2) Pneumonia due to COVID-19 virus: Code(s): U07.1 - COVID-19; J12.82 - Pneumonia due to coronavirus disease 2018 Status: Acute Assessment and Plan: SARS-CoV-2 PCR positive on 08/10/2020 - dexamethasone initiated on 08/10, receiving for total of 10 days -Remdesivir initiated on 08/12, receiving for total of 10 days -appreciate pulmonology following the patient -elevated inflammatory markers, will trend intermittently (3) Atrial fibrillation: Code(s): I48.91 - Unspecified atrial fibrillation Status: Acute Assessment and Plan: Patient with atrial fibrillation, currently rate controlled -will continue Eliquis (4) Diabetes mellitus with hyperglycemia: Qualifiers: Diabetes mellitus type: type 2 Diabetes mellitus half-way 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 Qualified Code(s): E11.65 - Type 2 diabetes mellitus with hyperglycemia; 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 Code(s): E11.65 - Type 2 diabetes mellitus with hyperglycemia Status: Acute Assessment and Plan: Continue sliding scale insulin and Lantus along with Accu-Cheks (5) Coronary artery disease: Code(s): I25.10 - Atherosclerotic heart disease of [place] coronary artery without angina pectoris Status: Acute Assessment and Plan: Coronary artery disease, will hold atenolol, amlodipine, Ranexa discussed with cardiology (6) DVT prophylaxis: Code(s): Z29.9 - Encounter for prophylactic measures, unspecified Status: Acute Assessment and Plan: Continue Eliquis (7) Dietary counseling and surveillance: Code(s): Z71.3 - Dietary counseling and surveillance Status: Acute Assessment and Plan: Will start tube feeds Additional Plan Will discuss with family Code status: Full code Critical care time spent: 47 minutes Due to a high probability of clinically significant, life threatening deterioration, the patient required my highest level of preparedness to intervene emergently and I personally spent this critical care time directly and personally managing the patient. This critical care time included obtaining a history; examining the patient; pulse oximetry; ordering and review of studies; arranging urgent treatment with development of a management plan; evaluation of patient's response to treatment; frequent reassessment; and discussions with other providers. It was exclusive of separately billable procedures and treating other patients and teaching time. Please see Assessment and Plan section and the rest of the note for further information on patient assessment and treatment Program Engagement Director Consult Note Consult date: 08/20/20 Time Seen: 07:02 Reason for consult: Acute hypoxic respiratory failure requiring intubation 08/20/2020 COVID-19 pneumonia, atrial fibrillation HPI: Luis Garvey Jr. is a 69 year old male with past medical history coronary artery disease status post PTCA/PCI essential hypertension, hyperlipidemia, diabetes, neuropathy, osteoarthritis, vitamin-D deficiency presented the ED on 08/10/2020 with concerns of COVID-19 as patient had fevers, sore throat, cough body aches, decreased appetite generalized weakness. Patient was saturating in the 80s on room air in the ED, was placed on nasal cannula with improvement in the O2 sats. Patient tested positive for COVID-19 on 08/10/2019. Dexamethasone in
[2020-08-20 09:38] LABS: Arterial Blood Gas PEEP 12 cmH2O; Arterial Blood Gas Tidal Volume 380 ml
[2020-08-20] MEDS: ASPIRIN 81 MG CHEWABLE TABLET PO (10:14)
[2020-08-20] MEDS: REMDESIVIR 100 MG/NS 250 ML 100 MG/250 ML BAG 250 MG IVPB (10:14)
--- NOTE | 2020-08-20 11:05 | PCDIET ---
Nutrition Follow-Up Complete: Nutrition Diagnosis: Suboptimal oral intake related to respiratory failure as evidenced by intake records. Nutrition Goal: Patient to meet estimated nutritional needs. Goal in progress. Patient now intubated with MD order to start tube feedings. Recommend Glucerna 1.2 at goal of 65mL/hr. MD order to advance toward goal of 30mL/hr Glucerna 1.2 for today. Last recorded weight is 90.2 kg. Recommend obtaining new weight. Bowel Motility: Last documented BM on 08/15/20. Labs Reviewed: Hgb (11.8), Hct (34.9), Glu (203), BUN (35), Ca (7.7) Meds Noted: Albuterol, Lipitor, Nimbex, Fentanyl, Novolog, Lantus, Versed, Protonix, Remdesivir Additional Notes: Right plantar foot with diabetic ulcer. Will continue to monitor with same goal. Nutrition Monitoring and Evaluation: Follow up every Tuesday/Tuesday.
--- NOTE | 2020-08-20 11:29 | PM.PNPUL ---
Progress Note: A&P Assessment and Plan (1) Pneumonia due to COVID-19 virus: Code(s): U07.1 - COVID-19; J12.82 - Pneumonia due to coronavirus disease 2019 Status: Acute Assessment and Plan: Patient was [id number] to pneumonia with ARDS. Patient is currently receiving treatment with dexamethasone 6 mg IV day 7 of , remdesivir 100 mg which is completed as it is no longer on the list, and he is status post convalescent plasma on 08/12. Despite being on BiPAP 18/8 to 100% with saturations at 94% patient states that he is in minimal respiratory distress alert and oriented x4, and watching TV. At this point I do not think there are any other additional concurrent issues that could be causing his hypoxemia such as fluid overload or a concurrent infection. An echocardiogram has been performed with normal LV function, there are no focal infiltrates suggesting of bacterial infection. Influenza swab is negative 08/15. Will monitor patient and if hypoxemia worsens he may require intubation. 08/16 : will try AVAPS to see if he can tolerate a different mode with lower tidal volumes; I was at the bedside with RT Gonzales attempting different settings without much success. 08/17 : BiPAP is the most comfortable for him; he wore this all day, and wants to take a break from it overnight. PAtients have to have a rest from the constant pressure of the mask on the face. WOuld prefer that he wears the bipap with sleep and high flow O2 when he is awake in the day. I discussed with Dunia Simpson, RT. Off remdesivir. CXR with diffuse interstial and alveolar infiltrates, minimally improved on the BiPAP compared to previoously off BiPAP. 08/18 Patient remained on BiPAP overnight. At 09:00 changed to Airvo 50L and 80% FIO2 and I saw him one hour later with saturations 94%. He stated nose was cold and uncomfortable from high flow and I decreased flow to 40 L/min and sats same. Overal breathing better than admission. On dexamethasone 6 mg for now. Will hold remdesivir since he is slowly improving. Attempt to keep sats > 90 with Airvo (increased to FIO2 100% if needed) and if fails then restart BiPAP. Tolerated off BiPAP for 3 hjours. 08/19 Remained on BiPAP 18/8 100% overnight. Restarted remdesivir today as somewhat worse today. Will complete total 10 days. Continue dexamethasone. CXR in morning. 08/20 Failed AVAPS mode 100% and now intubated. Continue remdesivir (total 10 days), dexamethasone and S/P convalescent plasma. (2) Acute respiratory failure with hypoxia: Code(s): J96.01 - Acute respiratory failure with hypoxia Status: Acute Assessment and Plan: Patient with SARS-CoV-2 pneumonia with ARDS requiring BiPAP 18/8 and 100%. He is tolerating this currently with saturations 94% ABG 08/16 on BiPAP 18/8 with 100% and rate 12 : 7.44 / 30 / 72.9 / 20.2 / 95%; mild respiratory alkalosis. May do better with lower minute ventilation. 08/18 BiPAP PRn for now, tolerated 3 hours AIRVO. 08/19 BIAPP 18/8 100% overnight and today I changed to AVAPS rate 20, TV 600, E pap5, I min 9, I max 25, rise 1 fastest, 100% and sats 100%. He states NRB is beat for him but he had immediate desats to 81% when tried him on this. 08/20 failed AVAPS mode and now intubated. Management per ophthalmic technologist team. Spoke with ophthalmic technologist. Will sign off, please call for any questions. Subjective Date/time seen: 08/20/20 11:29 Interval history: 08/15 New patient consult for COVID pneumonia with ARDS Patient is a 69-year-old man with a history of atrial fibrillation, 2 insulin-dependent diabetes, hypertension who presented with shortness of breath and infiltrates and was found to be COVID 19 positive on 01/10/2021Patient was admitted and started on dexamethasone and given convalescent plasma on 08/12/2020. Patient was started on Remdesivir on 08/12/2020. [place]
[2020-08-20 12:34] LABS: Glucose Point of Care 153 (65-105)
[2020-08-20] MEDS: FENTANYL 2,500MCG/NS250ML(*CRX 2,500 MCG/250 ML BAG 15 MCG IV CONT (13:15)
[2020-08-20] MEDS: CISATRACURIUM BESYLATE 200 MG in DEXTROSE 5% 80 ML 5.41 ML IV CONT (17:46)
[2020-08-20 17:55] LABS: Glucose Point of Care 146 (65-105)
--- NOTE | 2020-08-20 17:55 | PM.IMPN ---
Progress Note: A&P Assessment and Plan (1) Pneumonia due to COVID-19 virus: Code(s): U07.1 - COVID-19; J12.82 - Pneumonia due to coronavirus disease 2019 Status: Acute Assessment and Plan: CXR and CTA both demonstrate diffuse lung disease consistent with COVID-19 pneumonia. COVID-19 test was positive 08/10. Oxygen requirements increased starting on the night of 08/14/2020 required high-flow nasal cannula then BiPAP. Patient transferred to the IMU on 08/15/2020 and pulmonology was consulted. Became BiPAP dependent but condition worsened and now intubated 08/20/20. WBC worse again today. Could be stress response but having low grade fevers now. Consider HCAP now. Continue mechanical ventilation He received convalescent plasma 08/12. Completing IV dexamethasone 08/19/20 (initiated 08/10). Remdesivir day 5 completed 08/16/2020. Repeat course of Remdesivir started 08/19. Check sputum and blood cx. Add abx. (2) Acute respiratory failure with hypoxia: Code(s): J96.01 - Acute respiratory failure with hypoxia Status: Acute Assessment and Plan: Hypoxic upon presentation at 88% on room air, secondary to COVID-19 viral infection. CTA negative for PE. Oxygen requirements continue to increase and he is now intubated, sedated and paralyzed. Able to improve to 80% FiO2. (3) Atrial fibrillation: Code(s): I48.91 - Unspecified atrial fibrillation Status: Acute Assessment and Plan: Patient reports no prior known hx of atrial fibrillation. He has a hx of CAD s/p stenting on prasugrel. EKG on arrival to the emergency department demonstrated atrial fibrillation and telemetry monitoring demonstrates atrial fibrillation. Duration is unknown. Rate is controlled. This may be provoked by COVID-19 infection or from hyperthyroidism. His transportation attendant is Dr. Phillip Snow. Echo demonstrates normal LV systolic function with EF 60-65%, moderate concentric LV wall thickness, indeterminate diastolic function, mild tricuspid regurgitation, moderate pulmonary hypertension with estimated pulmonary arterial systolic pressure 45 mmHg. CHADS2-VASC score is 4. TSH is <0.015, free T4 2.26, total T3 0.89, free T3 low. Patient on aspirin 81mg and Eliquis currently Continue pantoprazole for GI prophylaxis HR controlled; Bisoprolol discontinued per cardiology and continue atenolol. (4) Diabetes mellitus with hyperglycemia: Qualifiers: Diabetes mellitus nursing home insulin use: with nursing home use Diabetes mellitus type: type 2 Qualified Code(s): E11.65 - Type 2 diabetes mellitus with hyperglycemia; Z79.4 - vamp presser (current) use of insulin Code(s): E11.65 - Type 2 diabetes mellitus with hyperglycemia Status: Acute Assessment and Plan: Blood sugars were elevated above target, likely due to IV steroids for COVID, but improved now. His home regimen consists of glimepiride, sitagliptin, and lantus. A1c was 7.0. 08/20 BS 140-150 Continue Lantus Continue ACHS glucose monitoring, SSI, and hypoglycemic protocol Oral hypoglycemic medication is on hold (5) Coronary artery disease: Code(s): I25.10 - Atherosclerotic heart disease of [place] coronary artery without angina pectoris Status: Acute Assessment and Plan: Has a history of coronary stents in 1999 and 2008. Continue atenolol, atorvastatin, Imdur, aspirin, and Ranexa. Prasugrel stopped per cardiology recommendations. (6) Hypokalemia: Code(s): E87.6 - Hypokalemia Status: Acute Assessment and Plan: Resolved (7) Chest pain: Code(s): R07.9 - Chest pain, unspecified Status: Acute Assessment and Plan: Episode of chest pain most likely related to acute hypoxemic respiratory failure complicated by chronic coronary artery disease. Troponin negative x3. EKG showing anterion T wave changes but persistent on repeat EKG. Cardiology following. Symptoms have resolved.
[2020-08-20 19:14] LABS: Add Urine Microscopic? YES; Appearance Urine Clear (Clear); Bilirubin Urine Negative (Negative); Blood Urine 3+ (Negative); Color Urine Yellow (Yellow); Glucose Urine UA Negative (Negative); Hyaline Casts Urine 20-29 /lpf; Ketones Urine Negative (Negative); Leukocyte Esterase Ur Negative LEU/UL (Negative); Mucus Urine Rare /lpf; Nitrate Urine Negative (Negative); Protein Urine 2+ mg/dL (Negative); RBC Urine >75 /hpf (0-2); Specific Grav Ur 1.024 (1.001-1.035); Squamous Epithelial Cell Urine Rare /hpf (Few); Urobilinogen Urine Negative mg/dL (<2.0); WBC Urine 16-20 /hpf
[2020-08-20 23:31] LABS: Glucose Point of Care 173 (65-105)
[2020-08-21] VITALS (39 sets, daily range): BP systolic 84–137; BP diastolic 53–87; PULSE 30–159; RESP 30–130; TEMP 37.3–38.8; O2SAT 92–96
[2020-08-21] MEDS: CENTRAL LINE FLUSH 10 ML IV PUSH ×4 (00:59→20:30)
[2020-08-21] MEDS: ALBUTEROL SULFATE NEB 2.5 MG/0.5 ML INH 5 MG INHALATION ×4 (02:29→20:18)
[2020-08-21 04:45] LABS: Basophils Percent Auto 0.1 % (0.2-1.2); Eosinophils Absolute Auto 0.2 K/mm3 (0-0.3); Eosinophils Percent Auto 0.9 % (0-4.4); Hematocrit 34.3 % (42.0-52.0); Hemoglobin 11.6 g/dL (14.0-18.0); Immature Granulocyte Absolute 0.21 K/mm3 (0.00-0.031); Immature Granulocyte Percent A 1.1 % (0-0.5); Lymphocytes Absolute Auto 0.85 K/mm3 (0.9-3.2); Lymphocytes Percent Auto 4.5 % (18.3-44.2); Mean Corpuscular HGB Conc 33.8 g/dl (32-36); Mean Corpuscular Hemoglobin 29.8 pg (26-34); Mean Corpuscular Volume 88.2 fl (80-100); Mean Platelet Volume 10.6 fl (7.4-10.4); Monocytes Absolute Auto 0.8 K/mm3 (0.1-0.6); Monocytes Percent Auto 4.3 % (2.6-8.5); Neutrophils Percent Auto 89.1 % (45.5-73.1); Platelet Count Result 501 k/mm3 (150-375); Red Blood Count 3.89 M/mm3 (4.6-6.20); Red Cell Distribution Width 13.5 % (11.5-14.5)
[2020-08-21 05:12] LABS: Alanine Aminotransferase 20 U/L (4-50); Albumin Level 2.7 g/dL (3.5-5.1); Alkaline Phosphatase 104 U/L (38-126); Anion Gap 4 mmol/L (8-16); Aspartate Amino Transferase 23 U/L (17-59); Bilirubin,Total 0.5 mg/dL (0.2-1.3); Blood Urea Nitrogen 51 mg/dL (9-20); CRP 19.9 mg/dL (<1.0); Calcium 8.1 mg/dL (8.4-10.2); Carbon Dioxide 27 mmol/L (22-30); Chloride 105 mmol/L (98-107); Estimated CRCL calculation 49 ml/min; Estimated Glomerular Filt Rate 51; Glucose 219 mg/dL (75-110); Lactate Dehydrogenase 698 U/L (313-618); Magnesium 2.4 mg/dL (1.6-2.3); Phosphorus 4.3 mg/dL (2.5-4.5); Potassium 4.1 mmol/L (3.4-5.0); Sodium 136 mmol/L (137-145)
[2020-08-21 06:14] LABS: Thyroid Stimulating Hormone Reflex < 0.015 uIU/mL (0.465-4.68)
[2020-08-21 06:17] LABS: Alveolar/Arterial O2 Gradient 445.8 mmHg; Base Excess ABG -2.5 mEq/l (+/-2.0); Carboxyhemoglobin 0.3 % THb (0-2.0); Fractional Inspired Oxygen 80 %; HCO3 ABG 24.1 mEq/l (22.0-26.0); Methemoglobin ABG 0.2 %THb (0-1.5); Oxygen Content ABG 16.9 %vol (16.0-22.0); Oxygen Saturation ABG 93.3 % (95.0-100.0); Oxyhemoglobin 92.3 % THb (90.0-100.0); PO2 ABG 73.2 mmHg (80.0-100.0); PO2 FiO2 Ratio Arterial Blood 0.91 %; Reduced Hemoglobin 7.2 %THb (0-5.0)
[2020-08-21 06:19] LABS: Arterial Blood Gas PEEP 12 cmH2O; Arterial Blood Gas Vent Mode CMV; Arterial Blood Gas Ventilator rate 30 /MIN; Device VENTILATOR; Modified Allen's Test Pass; Site Drawn LEFT RADIAL
[2020-08-21 06:20] LABS: Arterial Blood Gas Tidal Volume 430 ml
[2020-08-21] MEDS: INSULIN ASPART (*BKC) 100 UNITS/ML SUB-Q ×4 (06:31→23:32)
[2020-08-21] MEDS: ACETAMINOPHEN 325 MG TABLET 650 MG PO ×2 (06:33→20:23)
[2020-08-21 07:30] LABS: Free T4 Free Thyroxine Reflex 2.81 ng/dL (0.78-2.19)
[2020-08-21] MEDS: FENTANYL 2,500MCG/NS250ML(*CRX 2,500 MCG/250 ML BAG 15 MCG IV CONT (08:00)
[2020-08-21] MEDS: CISATRACURIUM BESYLATE 200 MG in DEXTROSE 5% 80 ML 8.12 ML IV CONT (08:00)
[2020-08-21] MEDS: INSULIN GLARGINE (*BKC) 100 UNITS/ML 14 UNITS SUB-Q (08:15)
--- NOTE | 2020-08-21 10:00 | PM.IMPN ---
Progress Note: A&P Assessment and Plan (1) Pneumonia due to COVID-19 virus: Code(s): U07.1 - COVID-19; J12.82 - Pneumonia due to coronavirus disease 2019 Status: Acute Assessment and Plan: CXR and CTA both demonstrate diffuse lung disease consistent with COVID-19 pneumonia. COVID-19 test was positive 08/10. Oxygen requirements increased starting on the night of 08/14/2020 required high-flow nasal cannula then BiPAP. Patient transferred to the IMU on 08/15/2020 and pulmonology was consulted. Became BiPAP dependent but condition worsened and now intubated 08/20/20. WBC climbed to 21K and now with fevers. Consider HCAP now. Continue mechanical ventilation He received convalescent plasma 08/12. Completing IV dexamethasone 08/19/20 (initiated 08/10). Remdesivir day 5 completed 08/16/2020. Repeat course of Remdesivir started 08/19. Sputum and blood cx pending. Continue abx. (2) Acute respiratory failure with hypoxia: Code(s): J96.01 - Acute respiratory failure with hypoxia Status: Acute Assessment and Plan: Hypoxic upon presentation at 88% on room air, secondary to COVID-19 viral infection. CTA negative for PE. Oxygen requirements continue to increase and he is now intubated, sedated and paralyzed. Wean O2 as toelrated (3) Atrial fibrillation: Code(s): I48.91 - Unspecified atrial fibrillation Status: Acute Assessment and Plan: Patient reports no prior known hx of atrial fibrillation. EKG on arrival to the emergency department demonstrated AFib and telemetry monitoring demonstrates atrial fibrillation. Duration is unknown. This may be provoked by COVID-19 infection or from hyperthyroidism. His dental laboratory supervisor is Dr. Phillip Snow. Echo demonstrates normal LV systolic function with EF 60-65%, moderate concentric LV wall thickness, indeterminate diastolic function, mild tricuspid regurgitation, moderate pulmonary hypertension with estimated pulmonary arterial systolic pressure 45 mmHg. CHADS2-VASC score is 4. TSH is <0.015, free T4 2.26, total T3 0.89, free T3 low. Rate is controlled. Patient on aspirin 81mg and Eliquis currently Continue pantoprazole for GI prophylaxis Bisoprolol discontinued per cardiology; atenolol stopped as well (4) Diabetes mellitus with hyperglycemia: Qualifiers: Diabetes mellitus terminologist insulin use: with penitentiary use Diabetes mellitus type: type 2 Qualified Code(s): E11.65 - Type 2 diabetes mellitus with hyperglycemia; Z79.4 - jail (current) use of insulin Code(s): E11.65 - Type 2 diabetes mellitus with hyperglycemia Status: Acute Assessment and Plan: Blood sugars were elevated above target, likely due to IV steroids for COVID, but improved now. His home regimen consists of glimepiride, sitagliptin, and lantus. A1c was 7.0. 08/21 BS 140-170 Continue Lantus Continue ACHS glucose monitoring, SSI, and hypoglycemic protocol Oral hypoglycemic medication is on hold (5) Coronary artery disease: Code(s): I25.10 - Atherosclerotic heart disease of [place] coronary artery without angina pectoris Status: Acute Assessment and Plan: Has a history of coronary stents in 1999 and 2008. Continue atenolol, atorvastatin, Imdur, aspirin, and Ranexa. Prasugrel stopped per cardiology recommendations. (6) Hypokalemia: Code(s): E87.6 - Hypokalemia Status: Acute Assessment and Plan: Resolved (7) Chest pain: Code(s): R07.9 - Chest pain, unspecified Status: Acute Assessment and Plan: Episode of chest pain most likely related to acute hypoxemic respiratory failure complicated by chronic coronary artery disease. Troponin negative x3. EKG showing anterion T wave changes but persistent on repeat EKG. Cardiology following. Symptoms have resolved. Continue ASA, Lipitor (8) Low TSH level: Code(s): R79.89 - Other specified abnormal findings of blood ch
[2020-08-21] MEDS: REMDESIVIR 100 MG/NS 250 ML 100 MG/250 ML BAG 250 MG IVPB (11:13)
[2020-08-21] MEDS: SILVERGEL (ELTA) 45 ML 1 APPLIC TOPICAL (11:18)
[2020-08-21] MEDS: ASPIRIN 81 MG CHEWABLE TABLET PO (11:19)
[2020-08-21] MEDS: PANTOPRAZOLE SODIUM IV 40 MG VIAL IV PUSH (11:19)
[2020-08-21] MEDS: CHOLECALCIFEROL 1,000 UNITS TABLET 2000 UNITS PO (11:19)
[2020-08-21] MEDS: ATORVASTATIN 40 MG TABLET 80 MG PO (11:19)
[2020-08-21] MEDS: APIXABAN 5 MG TABLET PO ×2 (11:20→20:29)
[2020-08-21] MEDS: minoxidiL 2.5 MG TABLET PO (11:20)
[2020-08-21 11:50] LABS: Glucose Point of Care 208 (65-105)
--- NOTE | 2020-08-21 12:12 | WPDINTPN ---
Progress Note: A&P Assessment and Plan (1) Acute respiratory failure with hypoxia: Code(s): J96.01 - Acute respiratory failure with hypoxia Status: Acute Assessment and Plan: Acute hypoxemic respiratory failure like COVID-19 diffuse infiltrates -patient intubated on 08/20/2020 in the early hours -patient on CMV mode of ventilation, low tidal volume to prevent volume trauma or barotrauma. -remains on peep of 12 and 80% FiO2, wean FiO2 as tolerated. -will prone patient today -sedated with fentanyl, Versed -Nimbex for neuromuscular blockade, will start weaning Nimbex -patient also on cefepime and vancomycin for leukocytosis, fevers (2) Pneumonia due to COVID-19 virus: Code(s): U07.1 - COVID-19; J12.82 - Pneumonia due to coronavirus disease 2019 Status: Acute Assessment and Plan: SARS-CoV-2 PCR positive on 08/10/2020 - dexamethasone initiated on 08/10, receiving for total of 10 days -Remdesivir initiated on 08/12, receiving for total of 10 days - -appreciate pulmonology following the patient -elevated inflammatory markers, will trend intermittently (3) Atrial fibrillation: Code(s): I48.91 - Unspecified atrial fibrillation Status: Acute Assessment and Plan: Patient with atrial fibrillation, currently rate controlled -will continue Eliquis (4) Diabetes mellitus with hyperglycemia: Qualifiers: Diabetes mellitus type: type 2 Diabetes mellitus continuous churn buttermaker insulin use: with half-way use Qualified Code(s): E11.65 - Type 2 diabetes mellitus with hyperglycemia; Z79.4 - intermediate project manager (current) use of insulin Code(s): E11.65 - Type 2 diabetes mellitus with hyperglycemia Status: Acute Assessment and Plan: Continue sliding scale insulin and Lantus along with Accu-Cheks (5) Coronary artery disease: Code(s): I25.10 - Atherosclerotic heart disease of [place] coronary artery without angina pectoris Status: Acute Assessment and Plan: Coronary artery disease, will hold atenolol, amlodipine, Ranexa discussed with cardiology (6) DVT prophylaxis: Code(s): Z29.9 - Encounter for prophylactic measures, unspecified Status: Acute Assessment and Plan: Continue Eliquis (7) Dietary counseling and surveillance: Code(s): Z71.3 - Dietary counseling and surveillance Status: Acute Assessment and Plan: Will start tube feeds Additional Plan Discussed with spouse, Aria, addendum dated her with patient's condition and plan of care. I answered all questions Code status: Full code Critical care time spent: 36 minutes Due to a high probability of clinically significant, life threatening deterioration, the patient required my highest level of preparedness to intervene emergently and I personally spent this critical care time directly and personally managing the patient. This critical care time included obtaining a history; examining the patient; pulse oximetry; ordering and review of studies; arranging urgent treatment with development of a management plan; evaluation of patient's response to treatment; frequent reassessment; and discussions with other providers. It was exclusive of separately billable procedures and treating other patients and teaching time. Please see Assessment and Plan section and the rest of the note for further information on patient assessment and treatment Subjective Date/time seen: 08/21/20 12:12 Interval history: 69yo male admitted with shortness of breath and COVID-19 pneumonia, SARS-CoV-2 PCR positive 20. History of coronary artery disease with previous PCI patient in 2007 and still on dual antiplatelet therapy. Asymptomatic but newly recognized atrial fibrillation. 08/21/2020: Patient intubated on CMV mode of ventilation, 80% FiO2 and peep of 12. Patient remains fentanyl, Versed infusion for sedation. Nimbex for neuromuscular blockade. Patient also Golden-Synephrine and 60 mcg/min. Urine outp
--- NOTE | 2020-08-21 13:07 | PCDIET ---
ICU Rounding Note: Patient tolerating Glucerna 1.2 at 30mL/hr. MD order to increase toward recommended goal of 65mL/hr. Continues to receive 30mL water flush every 4 hours. Last recorded weight is 90.2kg. RN to obtain new weight. Bowel Motility: No documented BM. Labs Reviewed: Hgb (11.6), Hct (34.3), Glu (219), BUN (51), Cr (1.4), Na (136) Meds Noted: Phenylephrine, Albuterol, Lipitor, Cefepime, Protonix, Nimbex, Fentanyl, Novolog, Lantus, Versed, Remdesivir, Vancomycin, Vitamin D Additional Notes: Right foot with diabetic ulcer. Following daily in ICU rounds. Assessing/reassessing every Tuesday/Tuesday.
[2020-08-21] MEDS: AMIODARONE 150 MG/D5W 100 ML 150 MG/100 ML BAG 600 MG IV CONT ×2 (14:45→20:56)
[2020-08-21] MEDS: AMIODARONE 360 MG/D5W 200 ML 360 MG/200 ML BAG 33.33 MG IV CONT ×2 (15:00→20:57)
--- NOTE | 2020-08-21 16:52 | PM.PNCARD ---
Progress Note: A&P Assessment and Plan (1) Atrial fibrillation: Code(s): I48.91 - Unspecified atrial fibrillation Status: Acute Assessment and Plan: Patient had been in atrial fibrillation with controlled ventricular response, off BB due to hypotension. However has developed RVR this afternoon. Being bolused w/ amiodarone and started on amio gtt. Anticoagulated w/ Eliquis. (2) Pneumonia due to COVID-19 virus: Code(s): U07.1 - COVID-19; J12.82 - Pneumonia due to coronavirus disease 2018 Status: Acute Assessment and Plan: COVID pneumonia, shock. Management as per primary team and pulmonology (3) Coronary artery disease: Code(s): I25.10 - Atherosclerotic heart disease of [place] coronary artery without angina pectoris Status: Acute Assessment and Plan: No evidence of ischemic problems. Subjective Date/time seen: 08/21/20 16:52 Patient with COVID pneumonia had progression of respiratory distress requiring transfer to the ICU and intubation. We are following him for his new onset atrial fibrillation of uncertain duration. H/O CAD and stents, followed by Dr. Phillip Thorne. Interval history: Date of service: 08/21/2020 Patient remains in the ICU on a ventilator. He was positioned prone and his AFib rate, which previously had been reasonably controlled at 100-115 beats per minute, went up to 140-150 beats per minute. He remains on Golden-Synephrine for SBP of 90 mmHg. FiO2 down to 70% with O2 sats in the 90s. Review of Systems Review of Systems: Narrative: Review of systems was obtained from the chart and the patient's nurse ROS unobtainable: Yes unobtainable due to endotracheal tube, unobtainable due to medical condition and unobtainable due to mental status Cardiovascular: Cardiovascular: Reports palpitations Gastrointestinal: Gastrointestinal: Denies hematochezia Genitourinary: Genitourinary: Denies hematuria Integumentary/Breasts: Skin/Breast: Denies rash Exam Narrative: Exam Narrative: Critically ill male lying prone, on a ventilator, multiple tubes and lines, sedated Const: General: comfortable and no acute distress HENMT: General nose exam: no epistaxis Resp: Effort & Inspection: normal respiratory effort Auscultation: rales (rales, coarse BS and diminished BS per Dr. meade's note) Cardio: Rate: tachycardic Rhythm: abnormal rhythm irregularly irregular GI: Inspection: non-distended Skin: General skin exam: normal color Neuro: Cognition (Neuro): abnormal cognition Extrem: General: no pedal edema Psych: Mental Status: mental status grossly abnormal Objective Data Vital Signs Vital Signs: Vital Signs - 24 hr 08/20/20 17:31 08/20/20 17:36 08/20/20 17:46 Temperature Pulse Rate 95 92 95 Respiratory Rate 30 H 30 H Blood Pressure 95/60 L Pulse Oximetry 95 08/20/20 17:48 08/20/20 17:49 08/20/20 18:00 Temperature 100.0 F H Pulse Rate 95 96 95 Respiratory Rate 30 H 30 H 30 H Blood Pressure 95/60 L 99/59 L Pulse Oximetry 94 08/20/20 18:52 08/20/20 19:44 08/20/20 19:56 Temperature 100.5 F H Pulse Rate 591 H 98 99 Respiratory Rate 30 H 30 H 30 H Blood Pressure 99/63 L 97/64 L 98/60 L Pulse Oximetry 93 08/20/20 19:58 08/20/20 19:59 08/20/20 20:00 Temperature Pulse Rate 93 102 H 106 H Respiratory Rate 30 H 30 H Blood Pressure 102/64 Pulse Oximetry 08/20/20 22:00 08/20/20 23:10 08/21/20 00:00 Temperature 101.2 F H 99.2 F Pulse Rate 96 93 99 Respiratory Rate 30 H 30 H Blood Pressure 105/68 90/63 L Pulse Oximetry 93 93 92 08/21/20 01:34 08/21/20 02:34 08/21/20 04:00 Temperature 101.9 F H Pulse Rate 89 98 112 H Respiratory Rate 30 H 30 H Blood Pressure 88/55 L 127/68 Pulse Oximetry 93 93 08/21/20 05:58 08/21/20 06:00 08/21/20 06:30 Temperature 100 F H Pulse Rate 118 H 112 H
[2020-08-21 18:48] LABS: Glucose Point of Care 264 (65-105)
[2020-08-21] MEDS: CISATRACURIUM BESYLATE 200 MG in DEXTROSE 5% 80 ML 6.77 ML IV CONT (20:20)
[2020-08-21] MEDS: AMIODARONE 360 MG/D5W 200 ML 360 MG/200 ML BAG 16.67 MG IV CONT (20:30)
--- NOTE | 2020-08-21 20:43 | PC.NURSE ---
Spoke with Dr. Briceno regarding HR of 140-158 AFIB. May rebolus Amio per protocol and keep amio drip at 1mg/hr.
[2020-08-21 23:38] LABS: Glucose Point of Care 353 (65-105)
[2020-08-22] VITALS (42 sets, daily range): BP systolic 74–121; BP diastolic 46–79; PULSE 92–127; RESP 24–30; TEMP 37.3–38.3; O2SAT 90–98
[2020-08-22] MEDS: FENTANYL 2,500MCG/NS250ML(*CRX 2,500 MCG/250 ML BAG 15 MCG IV CONT ×2 (00:45→18:51)
[2020-08-22 03:46] LABS: Alveolar/Arterial O2 Gradient 332.9 mmHg; Base Excess ABG -3.3 mEq/l (+/-2.0); Carboxyhemoglobin 0.3 % THb (0-2.0); Fractional Inspired Oxygen 65 %; HCO3 ABG 24.3 mEq/l (22.0-26.0); Methemoglobin ABG 0.4 %THb (0-1.5); Oxygen Content ABG 16.7 %vol (16.0-22.0); Oxygen Saturation ABG 91.7 % (95.0-100.0); Oxyhemoglobin 91.7 % THb (90.0-100.0); PCO2 ABG 54.8 mmHg (35.0-45.0); PO2 FiO2 Ratio Arterial Blood 1.09 %; Reduced Hemoglobin 7.6 %THb (0-5.0); Total Hemoglobin 12.9 g/dL (12.0-18.0); pH ABG 7.265 (7.350-7.450)
[2020-08-22 03:47] LABS: Arterial Blood Gas PEEP 12 cmH2O; Arterial Blood Gas Tidal Volume 430 ml; Arterial Blood Gas Vent Mode CMV; Arterial Blood Gas Ventilator rate 20 /MIN; Device VENTILATOR; Modified Allen's Test Pass; Site Drawn LEFT RADIAL
[2020-08-22 03:56] LABS: Basophils Percent Auto 0.2 % (0.2-1.2); Eosinophils Absolute Auto 0.1 K/mm3 (0-0.3); Eosinophils Percent Auto 0.4 % (0-4.4); Hematocrit 32.9 % (42.0-52.0); Hemoglobin 11.1 g/dL (14.0-18.0); Immature Granulocyte Absolute 0.16 K/mm3 (0.00-0.031); Immature Granulocyte Percent A 0.7 % (0-0.5); Lymphocytes Absolute Auto 0.79 K/mm3 (0.9-3.2); Lymphocytes Percent Auto 3.5 % (18.3-44.2); Mean Corpuscular HGB Conc 33.7 g/dl (32-36); Mean Corpuscular Volume 88.9 fl (80-100); Mean Platelet Volume 10.7 fl (7.4-10.4); Monocytes Absolute Auto 1.1 K/mm3 (0.1-0.6); Monocytes Percent Auto 4.8 % (2.6-8.5); Neutrophils Absolute Auto 20.2 K/mm3 (1.3-6.7); Neutrophils Percent Auto 90.4 % (45.5-73.1); Platelet Count Result 478 k/mm3 (150-375); Red Cell Distribution Width 13.5 % (11.5-14.5); White Blood Count 22.4 K/mm3 (4.5-10.0)
[2020-08-22 04:30] LABS: Alanine Aminotransferase 21 U/L (4-50); Albumin Level 2.5 g/dL (3.5-5.1); Anion Gap 3 mmol/L (8-16); Blood Urea Nitrogen 55 mg/dL (9-20); CRP 25.3 mg/dL (<1.0); Calcium 7.8 mg/dL (8.4-10.2); Carbon Dioxide 28 mmol/L (22-30); Chloride 101 mmol/L (98-107); Estimated CRCL calculation 43 ml/min; Estimated Glomerular Filt Rate 43; Glucose 348 mg/dL (75-110); Magnesium 2.6 mg/dL (1.6-2.3); Potassium 3.5 mmol/L (3.4-5.0); Sodium 132 mmol/L (137-145)
[2020-08-22] MEDS: ALBUTEROL SULFATE NEB 2.5 MG/0.5 ML INH 5 MG INHALATION ×4 (05:37→20:51)
[2020-08-22] MEDS: INSULIN ASPART (*BKC) 100 UNITS/ML SUB-Q ×3 (05:38→17:59)
[2020-08-22] MEDS: CENTRAL LINE FLUSH 10 ML IV PUSH ×3 (05:40→21:27)
[2020-08-22] MEDS: ACETAMINOPHEN 325 MG TABLET 650 MG PO ×2 (05:50→18:49)
[2020-08-22 05:57] LABS: Glucose Point of Care 289 (65-105)
[2020-08-22] MEDS: PANTOPRAZOLE SODIUM IV 40 MG VIAL IV PUSH (08:00)
[2020-08-22] MEDS: SILVERGEL (ELTA) 45 ML 1 APPLIC TOPICAL (08:00)
[2020-08-22] MEDS: INSULIN GLARGINE (*BKC) 100 UNITS/ML 25 UNITS SUB-Q (08:01)
[2020-08-22] MEDS: ASPIRIN 81 MG CHEWABLE TABLET PO (08:01)
[2020-08-22] MEDS: CHOLECALCIFEROL 1,000 UNITS TABLET 2000 UNITS PO (08:01)
[2020-08-22] MEDS: minoxidiL 2.5 MG TABLET PO (08:01)
[2020-08-22] MEDS: ATORVASTATIN 40 MG TABLET 80 MG PO (08:01)
[2020-08-22] MEDS: APIXABAN 5 MG TABLET PO ×2 (08:03→21:27)
[2020-08-22] MEDS: SODIUM CHLORIDE 0.9% IV 1,000 ML 999 ML IV CONT (08:38)
[2020-08-22] MEDS: CISATRACURIUM BESYLATE 200 MG in DEXTROSE 5% 80 ML 6.77 ML IV CONT (09:44)
--- NOTE | 2020-08-22 10:04 | PM.PNCARD ---
Progress Note: A&P Additional Plan 69-year-old man with: Atrial fibrillation of unknown chronicity patient is being rate controlled with intravenous amiodarone. Principal reason for hospitalization is mendez virus pneumonia which unfortunately has now resulted in the need for intubation and mechanical ventilation. Prognosis is obviously guarded. No additional specific cardiac recommendations today. Will continue to follow the patient with you Jayy Gil MD [facility] Subjective Date/time seen: 08/22/20 10:04 Interval history: Date of service: 08/21/2020 Patient remains in the ICU on a ventilator. Receiving IV amiodarone for rate control of his atrial fib. Heart rate is currently low 100s remains on ventilator support. Exam Narrative: Exam Narrative: Critically ill male lying prone, on a ventilator, multiple tubes and lines, sedated Const: General: comfortable and no acute distress Other: Well-developed well-nourished white male appears to be in no distress wearing high flow oxygen HENMT: General nose exam: no epistaxis Mouth: Yes moist mucous membranes Eyes: Sclera: sclerae normal Pupils: Equal, round and reactive pupils present Neck: Neck: supple and no JVD Thyroid: thyroid normal Resp: Effort & Inspection: normal respiratory effort Auscultation: rales (rales, coarse BS and diminished BS per Dr. meade's note) Other: Central rhonchi noted bilaterally Cardio: Rate: tachycardic Rhythm: abnormal rhythm irregularly irregular GI: Inspection: non-distended Auscultation: normal bowel sounds Skin: General skin exam: normal color Neuro: Cranial nerves: Yes Equal, round and reactive pupils present Cognition (Neuro): normal cognition and abnormal cognition Extrem: General: normal to inspection and no pedal edema Psych: Mental Status: mental status grossly abnormal Objective Data Vital Signs Vital Signs: Vital Signs - 24 hr 08/21/20 11:05 08/21/20 12:00 08/21/20 12:30 Temperature 37.6 C Pulse Rate 102 H 110 H 90 Respiratory Rate 30 H Blood Pressure 112/64 91/63 L Pulse Oximetry 93 93 08/21/20 14:00 08/21/20 14:11 08/21/20 14:20 Temperature 37.6 C Pulse Rate 102 H 96 115 H Respiratory Rate 30 H 30 H 30 H Blood Pressure 89/57 L 89/57 L Pulse Oximetry 93 95 08/21/20 14:30 08/21/20 14:45 08/21/20 15:00 Temperature Pulse Rate 113 H 159 H 142 H Respiratory Rate 30 H Blood Pressure 84/55 L 116/72 Pulse Oximetry 08/21/20 16:00 08/21/20 17:20 08/21/20 18:00 Temperature 37.4 C 37.6 C H Pulse Rate 137 H 110 H 130 H Respiratory Rate 30 H 30 H Blood Pressure 137/87 136/73 Pulse Oximetry 94 95 94 08/21/20 18:26 08/21/20 18:44 08/21/20 20:00 Temperature 38.1 C H Pulse Rate 125 H 138 H 117 H Respiratory Rate 30 H 30 H 30 H Blood Pressure 115/74 Pulse Oximetry 94 08/21/20 20:18 08/21/20 20:20 08/21/20 20:23 Temperature 37.7 C H Pulse Rate 125 H 125 H Respiratory Rate 30 H 30 H Blood Pressure 115/74 Pulse Oximetry 95 08/21/20 20:30 08/21/20 20:56 08/21/20 20:57 Temperature Pulse Rate 122 H 130 H 135 H Respiratory Rate Blood Pressure 118/86 110/65 90/54 L Pulse Oximetry 08/21/20 21:00 08/21/20 22:00 08/21/20 23:15 Temperature 37.9 C H 37.3 C Pulse Rate 155 H 114 H 128 H Respiratory Rate 30 H 30 H Blood Pressure 85/68 L 97/53 L Pulse Oximetry 94 94 96 08/22/20 00:00 08/22/20 00:38 08/22/20 00:45 Temperature 37.3 C Pulse Rate 119 H 117 H 117 H Respiratory Rate 30 H 30 H 30 H Blood Pressure 98/52 L Pulse Oximetry 96 08/22/20 00:48 08/22/20 02:00 08/22/20 02:13 Temperature 37.4 C Pulse Rate 117 H 112 H 110 H Respiratory Rate 30 H Blood Pressure 100/57 L 96/46 L Pulse Oximetry 94 95 08/22/20 02:14 08/22/20 04:00 08/22/20 05:13 Temperature 37.3 C Pulse Rate 110 H 120 H 118 H Respiratory Rate 30 H 30 H Blood Pressure 107/59 L Pulse Oximetry 96 97 08/22/20 05:45 08/22/20 05:5
[2020-08-22] MEDS: NOREPINEPHRINE 8 MG/D5W 250 ML 8 MG/250 ML BAG 9.38 MG IV CONT (10:30)
[2020-08-22] MEDS: AMIODARONE 360 MG/D5W 200 ML 360 MG/200 ML BAG 33.33 MG IV CONT ×2 (10:45→17:00)
[2020-08-22] MEDS: REMDESIVIR 100 MG/NS 250 ML 100 MG/250 ML BAG 250 MG IVPB (11:17)
--- NOTE | 2020-08-22 11:22 | PCDIET ---
Nutrition Follow-Up Complete: Nutrition Diagnosis: Suboptimal oral intake related to respiratory failure as evidenced by intake records. Nutrition Goal: Patient to meet estimated nutritional needs. Goal in progress. Tube feedings were held for proning, but Glucerna 1.2 has since resumed at 40mL/hr. MD ordered volume based feeding protocol due to order to hold feedings while prone. Last recorded weight is 87.9 kg which is decreased from last review. -I/O noted. Bowel Motility: Last documented BM on 08/15/20. Discussed during rounds. Labs Reviewed: Hgb (11.1), Hct (32.9), Glu (348), BUN (55), Cr (1.6), Na (132), Alb (2.5), Pete Ca (9.0) Meds Noted: Albuterol, Lipitor, Cefepime, Nimbex, Fentanyl, Novolog, Lantus, Versed, Protonix, Phenylephrine, Remdesivir, Vancomycin, Vitamin D Additional Notes: Right diabetic foot ulcer. Will continue to monitor with same goal. Nutrition Monitoring and Evaluation: Follow up every Tuesday/Tuesday.
[2020-08-22 11:56] LABS: Creatinine Urine 228.4 mg/dL
[2020-08-22 11:59] LABS: Potassium Urine Random 33.2 meq/L; Sodium Urine Random 7 meq/L
--- NOTE | 2020-08-22 12:27 | WPDINTPN ---
Progress Note: A&P Assessment and Plan (1) Shock: Code(s): R57.9 - Shock, unspecified Status: Acute Assessment and Plan: Patient febrile, leukocytosis, hypotensive, which shock -likely septic versus hypovolemia, could also be related to sedation and positive pressure ventilation -patient was given IV fluids, still has been on Golden-Synephrine, will switch to Levophed maintain mean arterial pressures > 65 mmHg -patient is on cefepime and vancomycin which was initiated on 08/20/2020 -08/20/2020: Blood culture, Urine culture and sputum cultures were negative (2) Acute respiratory failure with hypoxia: Code(s): J96.01 - Acute respiratory failure with hypoxia Status: Acute Assessment and Plan: Acute hypoxemic respiratory failure like COVID-19 diffuse infiltrates -patient intubated on 08/20/2020 in the early hours -patient on CMV mode of ventilation, low tidal volume to prevent volume trauma or barotrauma. -remains on peep of 12 and 80% FiO2, wean FiO2 as tolerated. -will prone patient today -sedated with fentanyl, Versed -Nimbex for neuromuscular blockade, will start weaning Nimbex -patient also on cefepime and vancomycin for leukocytosis, fevers (3) CURT (acute kidney injury): Code(s): N17.9 - Acute kidney failure, unspecified Status: Acute Assessment and Plan: Acute kidney injury could be related to hypovolemia, shock, COVID-19, patient has a history of diabetes, essential hypertension, coronary artery disease -nephrology has been consulted early -will continue monitor urine output, electrolytes and renal function -will obtain urine lytes, urine eosinophils -renal ultrasound mild atrophy of left kidney, no hydronephrosis (4) Pneumonia due to COVID-19 virus: Code(s): U07.1 - COVID-19; J12.82 - Pneumonia due to coronavirus disease 2019 Status: Acute Assessment and Plan: SARS-CoV-2 PCR positive on 08/10/2020 -status post dexamethasone for 10 days -Remdesivir initiated on 08/12, receiving for total of 10 days -appreciate pulmonology following the patient -elevated inflammatory markers, will trend intermittently (5) Atrial fibrillation: Code(s): I48.91 - Unspecified atrial fibrillation Status: Acute Assessment and Plan: Patient went to [facility] R[facility] last night on 08/21/2020, requiring amiodarone bolus and amiodarone infusion -will continue Eliquis (6) Diabetes mellitus with hyperglycemia: Qualifiers: Diabetes mellitus type: type 2 Diabetes mellitus 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 insulin use: with retirement use Qualified Code(s): E11.65 - Type 2 diabetes mellitus with hyperglycemia; Z79.4 - correction (current) use of insulin Code(s): E11.65 - Type 2 diabetes mellitus with hyperglycemia Status: Acute Assessment and Plan: Continue sliding scale insulin and Lantus along with Accu-Cheks (7) Coronary artery disease: Code(s): I25.10 - Atherosclerotic heart disease of [place] coronary artery without angina pectoris Status: Acute Assessment and Plan: Coronary artery disease, will hold atenolol, amlodipine, Ranexa discussed with cardiology since patient is on vasopressors (8) DVT prophylaxis: Code(s): Z29.9 - Encounter for prophylactic measures, unspecified Status: Acute Assessment and Plan: Continue Eliquis (9) Dietary counseling and surveillance: Code(s): Z71.3 - Dietary counseling and surveillance Status: Acute Assessment and Plan: Continue tube feeds Additional Plan Discussed with spouse, Aria, updated her with patient's condition and plan of care. I answered all questions Code status: Full code Critical care time spent: 32 minutes Due to a high probability of clinically significant, life threatening deterioration, the patient required my highest level of preparedness to intervene emergently and I personally spent this critical care time directly and personally managing the
[2020-08-22 13:14] LABS: Glucose Point of Care 265 (65-105)
--- NOTE | 2020-08-22 14:14 | PM.CNNEP ---
Assessment and Plan Assessment and plan (1) CURT (acute kidney injury): Code(s): N17.9 - Acute kidney failure, unspecified Status: Acute Assessment and Plan: Luis has acute kidney injury. His baseline creatinine is normal. He is hypotensive and has COVID 19. His urine electrolytes are pre renal suggesting dehydration. He could also be 3rd spacing and pre renal from that standpoint as well. The hypotension of course would contribute to this urinary finding as well. Renal ultrasound does not show obstruction. Rhabdomyolysis is always a possibility of so will check a CPK. Interstitial nephritis is always a possibility this laid in the hospital stay and his rise in creatinine is fairly slow but with all the hemodynamic issues I think this is less likely. (2) Pneumonia due to 2019-nCoV: Code(s): U07.1 - COVID-19; J12.82 - Pneumonia due to coronavirus disease 2019 Status: Acute Assessment and Plan: He has been getting remdesivir (3) Shock: Code(s): R57.9 - Shock, unspecified Status: Acute (4) Acute respiratory failure with hypoxia: Code(s): J96.01 - Acute respiratory failure with hypoxia Status: Acute Assessment and Plan: Patient is intubated and on full support. He has been alternating between prone and supine position. He is on FiO2 of 65% and peep of 12 (5) Essential hypertension: Code(s): I10 - Essential (primary) hypertension Status: Acute Assessment and Plan: The patient is hypertension and was on multiple medications for this. With his hypotension he does not need any of these. (6) Coronary artery disease: Code(s): I25.10 - Atherosclerotic heart disease of [place] coronary artery without angina pectoris Status: Acute Assessment and Plan: No activity here (7) Atrial fibrillation: Code(s): I48.91 - Unspecified atrial fibrillation Status: Acute Assessment and Plan: Heart rate is 100 to 110 History of Present Illness Reason for Consult Consult date: 08/22/20 Chief Complaint Chief complaint: acute respiratory failure with hypoxia History of Present Illness Narrative: Luis is a very pleasant gentleman who has multiple medical problems including hypertension, hyperlipidemia, vitamin-D deficiency, arthritis, diabetes, coronary artery disease, B12 deficiency, and neuropathy. The patient was in his usual state of health until he started becoming a bit short of breath. He developed a cough and is running fevers. He receives antibiotics from his primary care physician but continued to worsen so came to the emergency room. He was tested and was COVID-19 positive. He was admitted to the hospital eventually moved to the ICU when he became more short of breath. He was intubated and now is quite sick in the prone position alternating with supine position, and on Levophed and phenylephrine. He cannot give a history. His creatinine was normal when he was admitted but the last couple of days his creatinine has risen slowly so renal consultation was requested Is no history of any urinary issues. His creatinine was normal before admission and also in the old medical record software many years ago. The patient has diabetes. He has had this for a long period of time. He has neuropathy. He was taking nonsteroidal anti-inflammatory agents as an outpatient but these were not continued as an inpatient. Review of Systems Review of Systems: ROS unobtainable: Yes unobtainable due to medical condition PMFSH Past Medical History Medical History B12 deficiency Coronary artery disease Diabetes mellitus Hemoglobin A1c October 2019 6.4 Essential hypertension Hyperlipidemia Neuropathy Osteoarthritis Vitamin D deficiency Surgical History Surgical History History of coronary artery stent rafal
[2020-08-22 18:46] LABS: Glucose Point of Care 217 (65-105)
--- NOTE | 2020-08-22 19:12 | PM.IMPN ---
Progress Note: A&P Assessment and Plan (1) Pneumonia due to COVID-19 virus: Code(s): U07.1 - COVID-19; J12.82 - Pneumonia due to coronavirus disease 2019 Status: Acute Assessment and Plan: CXR and CTA both demonstrate diffuse lung disease consistent with COVID-19 pneumonia. COVID-19 test was positive 08/10. Oxygen requirements increased starting on the night of 08/14/2020 required high-flow nasal cannula then BiPAP. Patient transferred to the IMU on 08/15/2020 and pulmonology was consulted. Became BiPAP dependent but condition worsened requiring intubation 08/20/20. WBC worse again today and having fevers. Consider HCAP. Continue mechanical ventilation He received convalescent plasma 08/12. Completing IV dexamethasone 08/19/20 (initiated 08/10). Remdesivir day 5 completed 08/16/2020. Repeat course of Remdesivir started 08/19. Sputum and blood cx NGTD. Continue abx. (2) Acute respiratory failure with hypoxia: Code(s): J96.01 - Acute respiratory failure with hypoxia Status: Acute Assessment and Plan: Hypoxic upon presentation at 88% on room air, secondary to COVID-19 viral infection. CTA negative for PE. Oxygen requirements continue to increase and he is now intubated, sedated and paralyzed. Wean vent as toelrated. (3) Atrial fibrillation: Code(s): I48.91 - Unspecified atrial fibrillation Status: Acute Assessment and Plan: Patient reports no prior known hx of atrial fibrillation. He has a hx of CAD s/p stenting on prasugrel. EKG on arrival to the emergency department demonstrated atrial fibrillation and telemetry monitoring demonstrates atrial fibrillation. Duration is unknown. This may be provoked by COVID-19 infection or from hyperthyroidism. His manager plan is Dr. Phillip Snow. Echo demonstrates normal LV systolic function with EF 60-65%, moderate concentric LV wall thickness, indeterminate diastolic function, mild tricuspid regurgitation, moderate pulmonary hypertension with estimated pulmonary arterial systolic pressure 45 mmHg. CHADS2-VASC score is 4. TSH is <0.015, free T4 2.26, total T3 0.89, free T3 low. Patient on aspirin 81mg and Eliquis currently Continue pantoprazole for GI prophylaxis HR faster; Bisoprolol discontinued per cardiology; atenolol stopped. Amio ordered (4) Diabetes mellitus with hyperglycemia: Qualifiers: Diabetes mellitus long term care administrator insulin use: with jail use Diabetes mellitus type: type 2 Qualified Code(s): E11.65 - Type 2 diabetes mellitus with hyperglycemia; Z79.4 - senior care (current) use of insulin Code(s): E11.65 - Type 2 diabetes mellitus with hyperglycemia Status: Acute Assessment and Plan: Blood sugars were elevated above target, likely due to IV steroids for COVID, but improved now. His home regimen consists of glimepiride, sitagliptin, and lantus. A1c was 7.0. BS 08/22 210-280 Lantus increased Continue ACHS glucose monitoring, SSI, and hypoglycemic protocol Oral hypoglycemic medications remain on hold (5) Coronary artery disease: Code(s): I25.10 - Atherosclerotic heart disease of [place] coronary artery without angina pectoris Status: Acute Assessment and Plan: Has a history of coronary stents in 1999 and 2008. Continue atenolol, atorvastatin, Imdur, aspirin, and Ranexa. Prasugrel stopped per cardiology recommendations. (6) Hypokalemia: Code(s): E87.6 - Hypokalemia Status: Acute Assessment and Plan: Resolved (7) Chest pain: Code(s): R07.9 - Chest pain, unspecified Status: Acute Assessment and Plan: Episode of chest pain most likely related to acute hypoxemic respiratory failure complicated by chronic coronary artery disease. Troponin negative x3. EKG showing anterion T wave changes but persistent on repeat EKG. Cardiology following. Continue ASA, Lipitor (8) Low TSH level: Code(s): R79.89 - Oth
[2020-08-22 20:03] LABS: Creatine Kinase 847 U/L (55-170)
[2020-08-22] MEDS: NOREPINEPHRINE 8 MG/D5W 250 ML 8 MG/250 ML BAG 24.38 MG IV CONT (21:26)
[2020-08-23] VITALS (33 sets, daily range): BP systolic 76–110; BP diastolic 48–60; PULSE 83–112; RESP 20–30; TEMP 36.8–37.6; O2SAT 90–99
[2020-08-23] MEDS: AMIODARONE 360 MG/D5W 200 ML 360 MG/200 ML BAG 33.33 MG IV CONT ×4 (00:45→18:51)
[2020-08-23] MEDS: INSULIN ASPART (*BKC) 100 UNITS/ML SUB-Q ×4 (00:46→18:47)
[2020-08-23] MEDS: CISATRACURIUM BESYLATE 200 MG in DEXTROSE 5% 80 ML 6.77 ML IV CONT (00:46)
[2020-08-23 01:02] LABS: Glucose Point of Care 312 (65-105)
[2020-08-23 01:39] LABS: Vancomycin Trough 17.6 ug/mL (10.0-20.0)
[2020-08-23 04:04] LABS: Hemoglobin 10.2 g/dL (14.0-18.0); Mean Corpuscular Hemoglobin 30.5 pg (26-34); Mean Corpuscular Volume 89.8 fl (80-100); Mean Platelet Volume 10.7 fl (7.4-10.4); Platelet Count Result 411 k/mm3 (150-375); Red Blood Count 3.34 M/mm3 (4.6-6.20); Red Cell Distribution Width 14.1 % (11.5-14.5); White Blood Count 21.6 K/mm3 (4.5-10.0)
[2020-08-23 04:16] LABS: D Dimer 2.32 ug/mL (<0.48)
[2020-08-23 04:21] LABS: Alanine Aminotransferase 24 U/L (4-50); Lactate Dehydrogenase 499 U/L (313-618); Magnesium 2.4 mg/dL (1.6-2.3); Phosphorus 5.3 mg/dL (2.5-4.5)
[2020-08-23 04:30] LABS: CRP 22.6 mg/dL (<1.0)
[2020-08-23 05:11] LABS: Alveolar/Arterial O2 Gradient 405.2 mmHg; Base Excess ABG -5.5 mEq/l (+/-2.0); Carboxyhemoglobin 0.3 % THb (0-2.0); Fractional Inspired Oxygen 75 %; HCO3 ABG 22.4 mEq/l (22.0-26.0); Methemoglobin ABG 0.3 %THb (0-1.5); Oxygen Content ABG 16.1 %vol (16.0-22.0); Oxygen Saturation ABG 91.3 % (95.0-100.0); Oxyhemoglobin 92.2 % THb (90.0-100.0); PCO2 ABG 54.5 mmHg (35.0-45.0); PO2 ABG 71.7 mmHg (80.0-100.0); PO2 FiO2 Ratio Arterial Blood 0.96 %; Reduced Hemoglobin 7.2 %THb (0-5.0); Total Hemoglobin 12.4 g/dL (12.0-18.0)
[2020-08-23 05:13] LABS: Device VENTILATOR; Modified Allen's Test Pass; Site Drawn RIGHT RADIAL; pH ABG 7.232 (7.350-7.450)
[2020-08-23 05:14] LABS: Arterial Blood Gas PEEP 12 cmH2O; Arterial Blood Gas Tidal Volume 430 ml; Arterial Blood Gas Vent Mode CMV; Arterial Blood Gas Ventilator rate 30 /MIN
[2020-08-23] MEDS: CENTRAL LINE FLUSH 10 ML IV PUSH ×3 (06:37→21:18)
[2020-08-23] MEDS: NOREPINEPHRINE 8 MG/D5W 250 ML 8 MG/250 ML BAG 26.25 MG IV CONT (06:44)
[2020-08-23 06:57] LABS: Glucose Point of Care 253 (65-105)
[2020-08-23] MEDS: PANTOPRAZOLE SODIUM IV 40 MG VIAL IV PUSH (08:34)
[2020-08-23] MEDS: SILVERGEL (ELTA) 45 ML 1 APPLIC TOPICAL (08:34)
[2020-08-23] MEDS: ASPIRIN 81 MG CHEWABLE TABLET PO (08:35)
[2020-08-23] MEDS: INSULIN GLARGINE (*BKC) 100 UNITS/ML 25 UNITS SUB-Q (08:35)
[2020-08-23] MEDS: ALBUTEROL SULFATE NEB 2.5 MG/0.5 ML INH 5 MG INHALATION ×3 (08:37→21:18)
[2020-08-23] MEDS: CHOLECALCIFEROL 1,000 UNITS TABLET 2000 UNITS PO (08:37)
[2020-08-23] MEDS: ATORVASTATIN 40 MG TABLET 80 MG PO (08:38)
[2020-08-23] MEDS: APIXABAN 5 MG TABLET PO ×2 (08:39→21:15)
[2020-08-23 08:43] LABS: Estimated CRCL calculation 22 ml/min; Estimated Glomerular Filt Rate 17
[2020-08-23 09:26] LABS: Alanine Aminotransferase 24 U/L (4-50); Albumin Level 2.2 g/dL (3.5-5.1); Alkaline Phosphatase 87 U/L (38-126); Anion Gap 6 mmol/L (8-16); Aspartate Amino Transferase 48 U/L (17-59); Bilirubin,Total 0.3 mg/dL (0.2-1.3); Blood Urea Nitrogen 69 mg/dL (9-20); Calcium 7.3 mg/dL (8.4-10.2); Carbon Dioxide 26 mmol/L (22-30); Chloride 94 mmol/L (98-107); Estimated CRCL calculation 19 ml/min; Estimated Glomerular Filt Rate 15; Glucose 296 mg/dL (75-110); Potassium 4.1 mmol/L (3.4-5.0); Sodium 126 mmol/L (137-145)
--- NOTE | 2020-08-23 11:21 | PM.PNNEP ---
Progress Note: A&P Assessment and Plan (1) CURT (acute kidney injury): Code(s): N17.9 - Acute kidney failure, unspecified Status: Acute Assessment and Plan: Luis has acute kidney injury. His baseline creatinine is normal. Renal ultrasound is okay. Urine electrolytes are pre renal. The CPK is a little bit high, probably not enough to cause renal problems. Will check this in the morning as well. He is hypotensive on pressors and has COVID 19. His urine electrolytes are pre renal suggesting dehydration. He could also be 3rd spacing and pre renal from that standpoint as well. Consider some IV fluids. (2) Pneumonia due to 2019-nCoV: Code(s): U07.1 - COVID-19; J12.82 - Pneumonia due to coronavirus disease 2019 Status: Acute Assessment and Plan: He has been getting remdesivir (3) Shock: Code(s): R57.9 - Shock, unspecified Status: Acute Assessment and Plan: On pressors currently. (4) Acute respiratory failure with hypoxia: Code(s): J96.01 - Acute respiratory failure with hypoxia Status: Acute Assessment and Plan: Patient is intubated and on full support. He has been alternating between prone and supine position. He is on FiO2 of 75% and peep of 12 (5) Essential hypertension: Code(s): I10 - Essential (primary) hypertension Status: Acute Assessment and Plan: The patient is hypertension and was on multiple medications for this. He is off his antihypertensives (6) Coronary artery disease: Code(s): I25.10 - Atherosclerotic heart disease of [place] coronary artery without angina pectoris Status: Acute (7) Atrial fibrillation: Code(s): I48.91 - Unspecified atrial fibrillation Status: Acute Assessment and Plan: Heart rate is 100 to 110 Subjective Date/time seen: 08/23/20 11:21 Interval history: Patient is sedated and on the ventilator. He cannot give a history Still on pressors Review of Systems Review of Systems: ROS unobtainable: Yes unobtainable due to medical condition Exam Narrative: Exam Narrative: WDWN male in NAD on the ventilator skin no rash head ncat lungs coarse bilaterally cor reg no rub abd BS+ nontender and soft ext trace edema. Objective Data Vital Signs Vital Signs: Vital Signs - 24 hr 08/22/20 12:00 08/22/20 14:00 08/22/20 14:08 Temperature 37.8 C H 38.1 C H Pulse Rate 118 H 104 H 108 H Respiratory Rate 30 H 30 H 30 H Blood Pressure 90/58 L 95/62 L Pulse Oximetry 90 90 08/22/20 14:15 08/22/20 16:00 08/22/20 17:00 Temperature 38.0 C H Pulse Rate 110 H 110 H 114 H Respiratory Rate 30 H Blood Pressure 121/67 119/62 Pulse Oximetry 96 93 08/22/20 17:30 08/22/20 18:00 08/22/20 18:15 Temperature 38.3 C H Pulse Rate 111 H 109 H 108 H Respiratory Rate 30 H Blood Pressure 118/65 102/62 Pulse Oximetry 96 93 08/22/20 18:30 08/22/20 18:45 08/22/20 18:49 Temperature 38.3 C H Pulse Rate 115 H 115 H Respiratory Rate Blood Pressure 116/62 116/62 Pulse Oximetry 08/22/20 18:50 08/22/20 18:51 08/22/20 19:49 Temperature 38.2 C H Pulse Rate 127 H 117 H Respiratory Rate 30 H 30 H Blood Pressure Pulse Oximetry 08/22/20 20:00 08/22/20 20:51 08/22/20 22:00 Temperature 38.2 C H 37.7 C H Pulse Rate 103 H 115 H 107 H Respiratory Rate 30 H 30 H 30 H Blood Pressure 99/52 L 100/49 L Pulse Oximetry 92 94 95 08/22/20 22:51 08/23/20 00:00 08/23/20 00:30 Temperature 37.6 C Pulse Rate 106 H 102 H Respiratory Rate 30 H Blood Pressure 95/53 L 86/54 L Pulse Oximetry 96 96 08/23/20 00:47 08/23/20 02:00 08/23/20 04:00 Temperature 37.4 C 37.2 C Pulse Rate 102 H 101 H 99 Respiratory Rate 30 H 30 H 30 H Blood Pressure 96/53 L 93/48 L Pulse Oximetry 97 99 08/23/20 04:57 08/23/20 06:00 08/23/20 08:00 Temperature 36.8 C 37.1 C Pulse Rate 111 H 102 H 90 Respiratory Rate 30
[2020-08-23] MEDS: SODIUM CHLORIDE 0.9% IV 500 ML IV CONT (11:45)
[2020-08-23] MEDS: FENTANYL 2,500MCG/NS250ML(*CRX 2,500 MCG/250 ML BAG 15 MCG IV CONT (12:51)
--- NOTE | 2020-08-23 13:53 | WPDINTPN ---
Progress Note: A&P Assessment and Plan (1) Shock: Code(s): R57.9 - Shock, unspecified Status: Acute Assessment and Plan: Patient febrile, leukocytosis, hypotensive, which shock -likely septic versus hypovolemia, could also be related to sedation and positive pressure ventilation -patient was given IV fluids, still has been on Golden-Synephrine, will switch to Levophed maintain mean arterial pressures > 65 mmHg -patient is on cefepime and vancomycin which was initiated on 08/20/2020 -08/20/2020: Blood culture, Urine culture and sputum cultures were negative -will give additional IV fluid bolus and continue maintenance IV fluids. (2) Acute respiratory failure with hypoxia: Code(s): J96.01 - Acute respiratory failure with hypoxia Status: Acute Assessment and Plan: Acute hypoxemic respiratory failure like COVID-19 diffuse infiltrates -patient intubated on 08/20/2020 in the early hours -patient on CMV mode of ventilation, low tidal volume to prevent volume trauma or barotrauma. -remains on peep of 12 and 75 % FiO2, wean FiO2 as tolerated. -patient was placed in prone position on 08/22/2020 -sedated with fentanyl, Versed -Nimbex for neuromuscular blockade, will start weaning Nimbex -patient also on cefepime and vancomycin for leukocytosis, fevers -08/20/2020 sputum cultures growing staph aureus, sensitivities pending (3) CURT (acute kidney injury): Code(s): N17.9 - Acute kidney failure, unspecified Status: Acute Assessment and Plan: Acute kidney injury could be related to hypovolemia, shock, COVID-19, patient has a history of diabetes, essential hypertension, coronary artery disease - appreciate Nephrology evaluation recommendation -worsening creatinine and BUN, discussed with Nephrology, agrees with IV fluids and albumin urine lytes show prerenal azotemia -will continue monitor urine output, electrolytes and renal function -renal ultrasound mild atrophy of left kidney, no hydronephrosis (4) Pneumonia due to COVID-19 virus: Code(s): U07.1 - COVID-19; J12.82 - Pneumonia due to coronavirus disease 2019 Status: Acute Assessment and Plan: SARS-CoV-2 PCR positive on 08/10/2020 -status post dexamethasone for 10 days -Remdesivir initiated on 08/12, and has received 9 doses of Remdesivir. On 08/23 which was his last dose was not given due to decrease creatinine clearance and worsening acute kidney injury. 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: with intermediate use Qualified Code(s): E11.65 - Type 2 diabetes mellitus with hyperglycemia; Z79.4 - residential (current) use of insulin Code(s): E11.65 - Type 2 diabetes mellitus with hyperglycemia Status: Acute Assessment and Plan: Continue sliding scale insulin and Accu-Cheks -increase Lantus (7) Coronary artery disease: Code(s): I25.10 - Atherosclerotic heart disease of [place] coronary artery without angina pectoris Status: Acute Assessment and Plan: Coronary artery disease, will hold atenolol, amlodipine, Ranexa discussed with cardiology since patient is on vasopressors (8) DVT prophylaxis: Code(s): Z29.9 - Encounter for prophylactic measures, unspecified Status: Acute Assessment and Plan: Continue Eliquis (9) Dietary counseling and surveillance: Code(s): Z71.3 - Dietary counseling and surveillance Status: Acute Assessment and Plan: Continue tube feeds Additional Plan
[2020-08-23 13:58] LABS: Glucose Point of Care 252 (65-105)
[2020-08-23] MEDS: INSULIN GLARGINE (*BKC) 100 UNITS/ML 10 UNITS SUB-Q (14:40)
[2020-08-23] MEDS: SODIUM CHLORIDE 0.9% IV 1,000 ML 75 ML IV CONT (14:41)
[2020-08-23] MEDS: NOREPINEPHRINE 8 MG/D5W 250 ML 8 MG/250 ML BAG 37.5 MG IV CONT ×2 (14:45→21:13)
[2020-08-23] MEDS: CISATRACURIUM BESYLATE 200 MG in DEXTROSE 5% 80 ML 8.12 ML IV CONT (14:45)
[2020-08-23] MEDS: ALBUMIN HUMAN 25% 12.5 GM/50ML 50 ML IVPB ×2 (16:18→18:47)
--- NOTE | 2020-08-23 17:43 | PM.IMPN ---
Progress Note: A&P Assessment and Plan (1) Septic shock: Code(s): A41.9 - Sepsis, unspecified organism; R65.21 - Severe sepsis with septic shock Status: Acute Assessment and Plan: Probably septic shock now with positive BCx. Suspect source is pulmonary given the positive sputum. Can not exclude skin given the open wound on the foot. Follow up on the BCx result. Continue IV abx. Continue Levophed and wean as BP toelrates. (2) Acute respiratory failure with hypoxia: Code(s): J96.01 - Acute respiratory failure with hypoxia Status: Acute Assessment and Plan: Hypoxic upon presentation at 88% on room air, secondary to COVID-19 viral infection. CTA negative for PE. Oxygen requirements continue to increase and he is now intubated, sedated and paralyzed. Complicated by the septic shock. Wean vent as toelrated. (3) CURT (acute kidney injury): Code(s): N17.9 - Acute kidney failure, unspecified Status: Acute Assessment and Plan: Cr 4.1 now up from normal baseline. Related to sepsis/septicemia. No recent contrasat. Renal US 08/22 showing mild atrophy of left kidney and no hydronephrosis. Monitor UOP and continue to follow. (4) Pneumonia due to COVID-19 virus: Code(s): U07.1 - COVID-19; J12.82 - Pneumonia due to coronavirus disease 2019 Status: Acute Assessment and Plan: CXR and CTA both demonstrate diffuse lung disease consistent with COVID-19 pneumonia. COVID-19 test was positive 08/10. Oxygen requirements increased starting on the night of 08/14/2020 required high-flow nasal cannula then BiPAP. Patient transferred to the IMU on 08/15/2020 and pulmonology was consulted. Became BiPAP dependent but condition worsened requiring intubation 08/20/20. WBC worse again today and having fevers. Consider HCAP. Continue mechanical ventilation He received convalescent plasma 08/12. Completing IV dexamethasone 08/19/20 (initiated 08/10). Remdesivir day 5 completed 08/16/2020. Repeat course of Remdesivir started 08/19 but held now. Sputum growing Staph aureus; blood cx (1of2) growing gram positive cocci in clusters. Continue abx. (5) Atrial fibrillation: Code(s): I48.91 - Unspecified atrial fibrillation Status: Acute Assessment and Plan: Patient reports no prior known hx of atrial fibrillation. He has a hx of CAD s/p stenting on prasugrel. EKG on arrival to the emergency department demonstrated atrial fibrillation and telemetry monitoring demonstrates atrial fibrillation. Duration is unknown. This may be provoked by COVID-19 infection and/or from hyperthyroidism. His yard motor operator is Dr. Phillip Snow. Echo demonstrates normal LV systolic function with EF 60-65%, moderate concentric LV wall thickness, indeterminate diastolic function, mild tricuspid regurgitation, moderate pulmonary hypertension with estimated pulmonary arterial systolic pressure 45 mmHg. CHADS2-VASC score is 4. TSH is <0.015, free T4 2.26, total T3 0.89, free T3 low. Patient on aspirin 81mg and Eliquis currently Continue pantoprazole for GI prophylaxis Bisoprolol and atenolol stopped. Amio ordered. HR better controlled (6) Diabetes mellitus with hyperglycemia: Qualifiers: Diabetes mellitus senior care insulin use: with senior care use Diabetes mellitus type: type 2 Qualified Code(s): E11.65 - Type 2 diabetes mellitus with hyperglycemia; Z79.4 - termite treater helper (current) use of insulin Code(s): E11.65 - Type 2 diabetes mellitus with hyperglycemia Status: Acute Assessment and Plan: Blood sugars were elevated above target, likely due to IV steroids for COVID. His home regimen consists of glimepiride, sitagliptin, and lantus. A1c was 7.0. BS 08/23 reviewed Lantus increased again Continue ACHS glucose monitoring, SSI, and hypoglycemic protocol Oral hypoglycemic medications remain on hold (7) Coronary artery disease: Code(s): I25.10 -
[2020-08-23 19:05] LABS: Glucose Point of Care 281 (65-105)
[2020-08-24] VITALS (19 sets, daily range): BP systolic 80–104; BP diastolic 48–68; PULSE 75–97; RESP 30–34; TEMP 36.3–36.9; O2SAT 90–96
[2020-08-24] MEDS: ALBUMIN HUMAN 25% 12.5 GM/50ML 50 ML IVPB ×3 (00:02→13:21)
[2020-08-24] MEDS: INSULIN ASPART (*BKC) 100 UNITS/ML SUB-Q ×3 (00:02→13:18)
[2020-08-24 00:07] LABS: Glucose Point of Care 300 (65-105)
[2020-08-24] MEDS: AMIODARONE 360 MG/D5W 200 ML 360 MG/200 ML BAG 33.33 MG IV CONT (00:50)
[2020-08-24] MEDS: ALBUTEROL SULFATE NEB 2.5 MG/0.5 ML INH 5 MG INHALATION ×3 (02:35→14:25)
[2020-08-24] MEDS: CISATRACURIUM BESYLATE 200 MG in DEXTROSE 5% 80 ML 8.12 ML IV CONT (03:42)
[2020-08-24] MEDS: NOREPINEPHRINE 8 MG/D5W 250 ML 8 MG/250 ML BAG 37.5 MG IV CONT (04:00)
[2020-08-24 04:46] LABS: Alveolar/Arterial O2 Gradient 441.2 mmHg; Base Excess ABG -9.1 mEq/l (+/-2.0); Carboxyhemoglobin 0.3 % THb (0-2.0); Fractional Inspired Oxygen 80 %; HCO3 ABG 19.9 mEq/l (22.0-26.0); Methemoglobin ABG 0.4 %THb (0-1.5); Oxygen Content ABG 13.6 %vol (16.0-22.0); Oxygen Saturation ABG 87.3 % (95.0-100.0); Oxyhemoglobin 90.6 % THb (90.0-100.0); PCO2 ABG 58.6 mmHg (35.0-45.0); PO2 ABG 67.7 mmHg (80.0-100.0); PO2 FiO2 Ratio Arterial Blood 0.85 %; Reduced Hemoglobin 8.7 %THb (0-5.0); Total Hemoglobin 10.6 g/dL (12.0-18.0)
[2020-08-24 04:51] LABS: Arterial Blood Gas Vent Mode CMV; Arterial Blood Gas Ventilator rate 30 /MIN; Device VENTILATOR; Modified Allen's Test Unable to perform; Site Drawn RIGHT RADIAL; pH ABG 7.149 (7.350-7.450)
[2020-08-24 04:52] LABS: Arterial Blood Gas PEEP 14 cmH2O; Arterial Blood Gas Tidal Volume 430 ml
[2020-08-24 05:20] LABS: Hematocrit 27.9 % (42.0-52.0); Hemoglobin 9.2 g/dL (14.0-18.0); Mean Corpuscular Hemoglobin 29.6 pg (26-34); Mean Corpuscular Volume 89.7 fl (80-100); Mean Platelet Volume 11.1 fl (7.4-10.4); Platelet Count Result 403 k/mm3 (150-375); Red Blood Count 3.11 M/mm3 (4.6-6.20); Red Cell Distribution Width 14.6 % (11.5-14.5); White Blood Count 22.3 K/mm3 (4.5-10.0)
[2020-08-24 05:53] LABS: Alanine Aminotransferase 24 U/L (4-50); Albumin Level 2.7 g/dL (3.5-5.1); Alkaline Phosphatase 101 U/L (38-126); Anion Gap 9 mmol/L (8-16); Aspartate Amino Transferase 47 U/L (17-59); Bilirubin,Total 0.4 mg/dL (0.2-1.3); Blood Urea Nitrogen 77 mg/dL (9-20); Calcium 7.6 mg/dL (8.4-10.2); Carbon Dioxide 22 mmol/L (22-30); Chloride 93 mmol/L (98-107); Estimated CRCL calculation 15 ml/min; Estimated Glomerular Filt Rate 10; Glucose 335 mg/dL (75-110); Magnesium 2.4 mg/dL (1.6-2.3); Phosphorus 6.7 mg/dL (2.5-4.5); Sodium 124 mmol/L (137-145)
[2020-08-24] MEDS: FENTANYL 2,500MCG/NS250ML(*CRX 2,500 MCG/250 ML BAG 15 MCG IV CONT (06:20)
[2020-08-24] MEDS: CENTRAL LINE FLUSH 10 ML IV PUSH ×2 (07:44→13:24)
[2020-08-24] MEDS: AMIODARONE 360 MG/D5W 200 ML 360 MG/200 ML BAG 16.67 MG IV CONT (07:53)
[2020-08-24] MEDS: SODIUM CHLORIDE 0.9% IV 1,000 ML 75 ML IV CONT (08:01)
[2020-08-24] MEDS: APIXABAN 5 MG TABLET PO (08:39)
[2020-08-24] MEDS: ATORVASTATIN 40 MG TABLET 80 MG PO (08:40)
[2020-08-24] MEDS: CHOLECALCIFEROL 1,000 UNITS TABLET 2000 UNITS PO (08:40)
[2020-08-24] MEDS: ASPIRIN 81 MG CHEWABLE TABLET PO (08:45)
[2020-08-24] MEDS: SILVERGEL (ELTA) 45 ML 1 APPLIC TOPICAL (08:46)
[2020-08-24] MEDS: PANTOPRAZOLE SODIUM IV 40 MG VIAL IV PUSH (08:46)
[2020-08-24] MEDS: INSULIN GLARGINE (*BKC) 100 UNITS/ML 35 UNITS SUB-Q (08:59)
--- NOTE | 2020-08-24 09:01 | PM.IMPN ---
Progress Note: A&P Assessment and Plan (1) Septic shock: Code(s): A41.9 - Sepsis, unspecified organism; R65.21 - Severe sepsis with septic shock Status: Acute Assessment and Plan: Probably septic shock now with positive BCx. Suspect source is pulmonary given the positive sputum. Can not exclude skin given the open wound on the foot. Follow up on the BCx result. Continue IV abx. Continue Levophed and wean as BP toelrates. (2) Acute respiratory failure with hypoxia: Code(s): J96.01 - Acute respiratory failure with hypoxia Status: Acute Assessment and Plan: Hypoxic upon presentation at 88% on room air, secondary to COVID-19 viral infection. CTA negative for PE. Oxygen requirements continue to increase and he is now intubated, sedated and paralyzed. Complicated by the septic shock. Wean vent as tolerated. Appreciate industrial designer input. (3) CURT (acute kidney injury): Code(s): N17.9 - Acute kidney failure, unspecified Status: Acute Assessment and Plan: Cr 5.5 today with normal baseline. Related to sepsis/septicemia (ATN). Renal US 08/22 showing mild atrophy of left kidney and no hydronephrosis. No recent contrast given. Could be related to HoTN/hypoperfusion. Consider also AIN from abx. UOP minimal past 24-36hours. Potassium 5.0 and pH 7.15 with bicarb 20. Monitor UOP and continue to follow. HD being considered. Nephrology following. (4) Pneumonia due to COVID-19 virus: Code(s): U07.1 - COVID-19; J12.82 - Pneumonia due to coronavirus disease 2019 Status: Acute Assessment and Plan: CTA demonstrate diffuse lung disease consistent with COVID-19 pneumonia. COVID-19 test was positive 08/10. Oxygen requirements increased starting on the night of 08/14/2020 requiring high-flow nasal cannula then BiPAP. Patient transferred to the IMU on 08/15/2020 and pulmonology was consulted. Received convalescent plasma 08/12. Completing IV dexamethasone x10 days on 08/19/20. Remdesivir day 5 completed 08/16/2020; repeat course of Remdesivir started 08/19 but only x4 days. Became BiPAP dependent but condition worsened requiring intubation 08/20/20. WBC worsened and having fevers; consider HCAP so abx started 08/20. Continue mechanical ventilation. Sputum growing Staph aureus; blood cx (1of2) growing gram positive cocci in clusters. Continue abx. (5) Atrial fibrillation: Code(s): I48.91 - Unspecified atrial fibrillation Status: Acute Assessment and Plan: Patient reports no prior known hx of atrial fibrillation. He has a hx of CAD s/p stenting on prasugrel. EKG on arrival to the emergency department demonstrated atrial fibrillation and telemetry monitoring demonstrates atrial fibrillation. Duration is unknown. This may be provoked by COVID-19 infection and/or from hyperthyroidism. His hadoop admin is Dr. Phillip Snow. Echo demonstrates normal LV systolic function with EF 60-65%, moderate concentric LV wall thickness, indeterminate diastolic function, mild tricuspid regurgitation, moderate pulmonary hypertension with estimated pulmonary arterial systolic pressure 45 mmHg. CHADS2-VASC score is 4. TSH is <0.015, free T4 2.26, total T3 0.89, free T3 low. Continue aspirin 81mg and Eliquis. Amio ordered and HR better controlled. (6) Diabetes mellitus with hyperglycemia: Qualifiers: Diabetes mellitus tank terminal gauger insulin use: with tank terminal gauger use Diabetes mellitus type: type 2 Qualified Code(s): E11.65 - Type 2 diabetes mellitus with hyperglycemia; Z79.4 - manager long term care (current) use of insulin Code(s): E11.65 - Type 2 diabetes mellitus with hyperglycemia Status: Acute Assessment and Plan: A1c 7.0. Blood sugars reviewed on 08/24 Glucose poorly controlled. Continue AccuCheks covering with sliding scale. Hypoglycemia protocol available as needed. Continue Lantus and increase dose (7) Low TSH level: Code(s): R79.89 - Oth
[2020-08-24 09:24] LABS: Glucose Point of Care 355 (65-105)
[2020-08-24 09:35] LABS: INR 2.8; Prothrombin Time 30.1 Seconds (11.1-14.7)
[2020-08-24 09:36] LABS: Partial Thromboplastin Time 68.3 SECONDS (22.3-36.8)
[2020-08-24] MEDS: VASOPRESSIN INJ 100 UNITS in DEXTROSE 5% 95 ML IV CONT (11:15)
[2020-08-24] MEDS: NOREPINEPHRINE 8 MG/D5W 250 ML 8 MG/250 ML BAG 41.25 MG IV CONT (11:26)
--- NOTE | 2020-08-24 12:49 | WPDINTPN ---
Progress Note: A&P Assessment and Plan (1) Shock: Code(s): R57.9 - Shock, unspecified Status: Acute Assessment and Plan: Patient febrile, leukocytosis, hypotensive, which shock -likely septic versus hypovolemia, could also be related to sedation and positive pressure ventilation -patient was given IV fluids, still has been on Golden-Synephrine, will switch to Levophed maintain mean arterial pressures > 65 mmHg -patient is on cefepime and vancomycin which was initiated on 08/20/2020 -08/20/2020: Blood culture, Urine culture negative -08/20/2020: Sputum cultures growing staph aureus - JAKE -patient on cefepime and vancomycin, given acute kidney injury, will discontinue vancomycin and start oxacillin (2) Acute respiratory failure with hypoxia: Code(s): J96.01 - Acute respiratory failure with hypoxia Status: Acute Assessment and Plan: Acute hypoxemic respiratory failure like COVID-19 diffuse infiltrates -patient intubated on 08/20/2020 in the early hours -patient on CMV mode of ventilation, low tidal volume to prevent volume trauma or barotrauma. -remains on peep of 12 and 80 % FiO2, wean FiO2 as tolerated. -patient was placed in prone position on 08/22/2020, 08/23/2020 -sedated with fentanyl, Versed -Nimbex for neuromuscular blockade, will start weaning Nimbex (3) CURT (acute kidney injury): Code(s): N17.9 - Acute kidney failure, unspecified Status: Acute Assessment and Plan: Acute kidney injury could be related to hypovolemia, shock, COVID-19, patient has a history of diabetes, essential hypertension, coronary artery disease, medications - appreciate Nephrology evaluation recommendation, medication -patient was given IV fluids and albumin after discussing with Nephrology on 08/23/2020 without any improvement renal function, urine output. -renal function has worsened -will continue monitor urine output, electrolytes and renal function -renal ultrasound mild atrophy of left kidney, no hydronephrosis (4) Pneumonia due to COVID-19 virus: Code(s): U07.1 - COVID-19; J12.82 - Pneumonia due to coronavirus disease 2019 Status: Acute Assessment and Plan: SARS-CoV-2 PCR positive on 08/10/2020 -status post dexamethasone for 10 days -Remdesivir initiated on 08/12, and has received 9 doses of Remdesivir. On 08/23 which was his last dose was not given due to decrease creatinine clearance and worsening acute kidney injury. -appreciate pulmonology following the patient -elevated inflammatory markers, will trend intermittently (5) Atrial fibrillation: Code(s): I48.91 - Unspecified atrial fibrillation Status: Acute Assessment and Plan: Patient went to AFib RVR last night on 08/21/2020, requiring amiodarone bolus and amiodarone infusion -remains on amiodarone infusion 0.5 mg/minute -will continue Eliquis (6) Diabetes mellitus with hyperglycemia: Qualifiers: Diabetes mellitus type: type 2 Diabetes mellitus mcc insulin use: with emt intermediate use Qualified Code(s): E11.65 - Type 2 diabetes mellitus with hyperglycemia; Z79.4 - long term acute care registered nurse (current) use of insulin Code(s): E11.65 - Type 2 diabetes mellitus with hyperglycemia Status: Acute Assessment and Plan: Continue sliding scale insulin and Accu-Cheks -increase Lantus (7) Coronary artery disease: Code(s): I25.10 - Atherosclerotic heart disease of [place] coronary artery without angina pectoris Status: Acute Assessment and Plan: Coronary artery disease, will hold atenolol, amlodipine, Ranexa discussed with cardiology since patient is on vasopressors (8) DVT prophylaxis: Code(s): Z29.9 - Encounter for prophylactic measures, unspecified Status: Acute Assessment and Plan: Continue Eliquis (9) Dietary counseling and surveillance: Code(s): Z71.3 - Dietary counseling and surveillance Status: Acute Assessment and Plan: Co
[2020-08-24 13:31] LABS: Glucose Point of Care 398 (65-105)
--- NOTE | 2020-08-24 13:35 | PM.PNNEP ---
Progress Note: A&P Assessment and Plan (1) CURT (acute kidney injury): Code(s): N17.9 - Acute kidney failure, unspecified Status: Acute Assessment and Plan: Luis has acute kidney injury. His baseline creatinine is normal. Renal ultrasound is okay. Urine electrolytes are pre renal. The CPK is a little bit high, probably not enough to cause renal problems. He is hypotensive on 2 pressors and has COVID 19. His urine electrolytes are pre renal suggesting dehydration. He could also be 3rd spacing and pre renal from that standpoint as well. he received some IV fluids yesterday neither urine output nor blood pressure responded to unstable for dialysis right now. He would need CRRT if family wanted to be aggressive. There are ongoing discussions in this regard today. Discussed with (2) Pneumonia due to 2019-nCoV: Code(s): U07.1 - COVID-19; J12.82 - Pneumonia due to coronavirus disease 2019 Status: Acute Assessment and Plan: He has been getting remdesivir (3) Shock: Code(s): R57.9 - Shock, unspecified Status: Acute Assessment and Plan: On pressors currently. (4) Acute respiratory failure with hypoxia: Code(s): J96.01 - Acute respiratory failure with hypoxia Status: Acute Assessment and Plan: Patient is intubated and on full support. He has been alternating between prone and supine position. He is on FiO2 of 75% and peep of 12 (5) Essential hypertension: Code(s): I10 - Essential (primary) hypertension Status: Acute Assessment and Plan: The patient is hypertension and was on multiple medications for this. He is off his antihypertensives (6) Coronary artery disease: Code(s): I25.10 - Atherosclerotic heart disease of [place] coronary artery without angina pectoris Status: Acute (7) Atrial fibrillation: Code(s): I48.91 - Unspecified atrial fibrillation Status: Acute Assessment and Plan: Heart rate is 100 to 110 Subjective Date/time seen: 08/24/20 13:35 Interval history: Patient is sedated and on the ventilator. He cannot give a history on 2 pressors at max dose now. About to start a 3rd one Review of Systems Review of Systems: ROS unobtainable: Yes unobtainable due to medical condition Exam Narrative: Exam Narrative: WDWN male Sedated on the ventilator skin no rash head ncat lungs coarse bilaterally cor reg no rub or gallop abd BS+ nontender and soft ext trace edema. Objective Data Vital Signs Vital Signs: Vital Signs - 24 hr 08/23/20 14:00 08/23/20 14:45 08/23/20 14:59 Temperature 37.6 C Pulse Rate 105 H 83 112 H Respiratory Rate 30 H 30 H Blood Pressure 93/54 L 90/57 L Pulse Oximetry 93 08/23/20 15:03 08/23/20 16:00 08/23/20 17:38 Temperature 37.6 C Pulse Rate 106 H 107 H 106 H Respiratory Rate 30 H Blood Pressure 103/59 L Pulse Oximetry 93 92 92 08/23/20 18:00 08/23/20 18:51 08/23/20 19:50 Temperature Pulse Rate 92 107 H 105 H Respiratory Rate 30 H 30 H Blood Pressure 99/55 L 110/60 Pulse Oximetry 92 08/23/20 20:00 08/23/20 20:16 08/23/20 21:00 Temperature 37.3 C Pulse Rate 102 H 105 H 100 Respiratory Rate 30 H 30 H Blood Pressure 104/53 L Pulse Oximetry 91 91 08/23/20 21:13 08/23/20 21:30 08/23/20 21:38 Temperature Pulse Rate 96 99 95 Respiratory Rate 20 20 Blood Pressure 108/57 L Pulse Oximetry 08/23/20 22:00 08/23/20 23:35 08/24/20 00:00 Temperature 37.1 C 36.9 C Pulse Rate 99 91 96 Respiratory Rate 30 H 30 H Blood Pressure 99/52 L 97/48 L Pulse Oximetry 90 90 90 08/24/20 00:50 08/24/20 02:00 08/24/20 02:35 Temperature 36.9 C Pulse Rate 90 96 91 Respiratory Rate 30 H 30 H Blood Pressure 103/55 L 99/51 L Pulse Oximetry 90 95 08/24/20 03:42 08/24/20 04:00 08/24/20 04:43 Temperature 36.4 C L Pulse Rate 96 87 88 Respirato
[2020-08-24] MEDS: MORPHINE SULFATE (*CRX) 2 MG/ML INJ IV PUSH (16:07)
[2020-08-24] MEDS: LORazepam INJ (*CRX) 2 MG/ML VIAL IV PUSH (16:07)
--- NOTE | 2020-08-24 17:32 | PM.DDS ---
Discharge Sum: Prov Provider Primary care physician: Jenna Fox, CHANGE MANAGEMENT COORDINATOR Admitting provider: Maria Elena Mckeon MD Consults: 08/12/20 Consult to Physician Routine Comment: consulted office at [phone]([facility] [place]) Consulting Provider: Walter Valle call centre supervisor/MD group to consult: Cardiology Atrial fibrillation - present on EKG on admission but no known history of arrhythmia prior to admission - rate controlled Reason for consultation: As above. Has provider been notified: Yes 08/13/20 Care Coordination Consult Routine Comment: Eliquis 5mg PO BID Reason for Consult:: Specialty Medications Wound/ET Consult Routine Reason for Consult:: Right foot wound, clean base and no evidence of infection 08/15/20 Consult to Physician Routine Comment: Consulting Provider: Jayy Watson call centre supervisor/MD group to consult: Pulmonology Reason for consultation: COVID-19 with acute hypoxic respiratory failure Has provider been notified: Yes 08/20/20 Consult to Physician Routine Comment: Consulting Provider: Brandi Briceno Reason for consultation: respiratory failure Has provider been notified: Yes 08/22/20 07:43 Consult to Physician Routine Comment: called exchange with consult information Consulting Provider: Gigi Chaparro call centre supervisor/MD group to consult: NEPHROLOGY Reason for consultation: CURT, COVID-19 Has provider been notified: Yes Pronouncing clinician: Reymundo Shaver Discharge Sum: Diag PCOD Septic shock Contributing Factors (1) Septic shock: (2) Acute respiratory failure with hypoxia: (3) CURT (acute kidney injury): (4) Pneumonia due to COVID-19 virus: (5) Atrial fibrillation: (6) Diabetes mellitus with hyperglycemia: (7) Coronary artery disease: (8) Chest pain: (9) Low TSH level: (10) Diabetic foot ulcer: (11) Pulmonary hypertension: Discharge Sum: Summary Date and Time Date of admission: 08/10/20 18:11 Date of : 08/24/20 Time of : 16:32 Summary Details: 69 year old male with a history of HTN and DM with 7 days of cough, congestion and fever. Patient was hypoxic upon presentation at 88% on room air. COVID-19 test was positive 08/10. CTA negative for PE but did show diffuse lung disease consistent with COVID-19 pneumonia. Oxygen requirements continued to increase; he ultimately required intubation, sedated and was paralyzed. [facility] course complicated by septic shock with positive blood cultures. His condition was deteriorating. Family decided to make the patient comfortable. He was extubated and 1632 on 08/24/20. Additional Data Attending physician: Luis Armando Shaver MD
[2020-08-27 00:39] LABS: Chloride Rand Ur <20 mmol/L (32-290); Creatinine Random Urine 202 mg/dL (20-320)
== END 2020-08-24 16:32 | disposition expired | DRG 207 ==
LOC: ANHED 18:23 → ANH3MEDSUR 08-11 00:40 → ANHIMU 08-16 07:10 → ANHICU 08-20 02:53 → ANH3MEDSUR 08-27 13:47 → ANHICU 08-27 13:47 → ANHIMU 08-27 13:47
PROVIDERS: Family Medicine; Internal Medicine; Internal Medicine Nephrology; Internal Medicine Pulmonary Disease; Physician Assistant; Admitting Provider Internal Medicine; Emergency Provider Emergency Medicine; PCP Nurse Practitioner Adult Health; Visit Provider Internal Medicine
DX: U07.1 COVID-19 (principal); J12.82 Pneumonia due to coronavirus disease 2019; J18.9 Pneumonia, unspecified organism; R65.21 Severe sepsis with septic shock; A41.9 Sepsis, unspecified organism; J80 Acute respiratory distress syndrome; L97.419 Non-pressure chronic ulcer of right heel and midfoot with unspecified severity; E87.2 Acidosis; N17.9 Acute kidney failure, unspecified; Z51.5 Encounter for palliative care; E11.40 Type 2 diabetes mellitus with diabetic neuropathy, unspecified; E11.65 Type 2 diabetes mellitus with hyperglycemia; E11.621 Type 2 diabetes mellitus with foot ulcer; Z79.4 Long term (current) use of insulin; E53.8 Deficiency of other specified B group vitamins; Z95.5 Presence of coronary angioplasty implant and graft; I10 Essential (primary) hypertension; M19.90 Unspecified osteoarthritis, unspecified site; E55.9 Vitamin D deficiency, unspecified; E87.6 Hypokalemia; I48.91 Unspecified atrial fibrillation; R79.89 Other specified abnormal findings of blood chemistry; G47.33 Obstructive sleep apnea (adult) (pediatric); I27.20 Pulmonary hypertension, unspecified; I25.118 Atherosclerotic heart disease of native coronary artery with other forms of angina pectoris; Z79.82 Long term (current) use of aspirin; Y95 Nosocomial condition; E86.1 Hypovolemia; T38.0X5A Adverse effect of glucocorticoids and synthetic analogues, initial encounter; Y92.230 Patient room in hospital as the place of occurrence of the external cause; E86.0 Dehydration; E05.90 Thyrotoxicosis, unspecified without thyrotoxic crisis or storm; B95.61 Methicillin susceptible Staphylococcus aureus infection as the cause of diseases classified elsewhere
CPT/HCPCS: 36415; 36430; 36569; 36600; 71045; 71275; 76775; 80048; 80053; 80069; 80202; 81001; 82375; 82436; 82550; 82565; 82570; 82728; 82805; 83036; 83050; 83605; 83615; 83735; 83880; 84100; 84132; 84133; 84300; 84439; 84443; 84460; 84480; 84481; 84484; 85025; 85027; 85380; 85610; 85730; 85999; 86140; 86900; 86901; 87040; 87070; 87077; 87081; 87086; 87186; 87205; 87804; 87880; 93005; 93306; 94002; 94003; 94640; 96374; 96375; 99291; A9270; C1751; C9113; C9803; J0282; J0456; J0692; J0696; J1100; J1650; J1815; J1940; J2060; J2250; J2270; J2370; J2704; J3010; J3370; J7030; J7040; J7050; J7060; J7120; P9047; P9059; Q9967; U0003